=== PATIENT | male | born 1975 | race African-American/Black ===

== ENCOUNTER 2017-09-28 18:24 | Observation (INO) | payer OTHER ==
[2017-09-28 18:47] LABS: Glucose,Whole Blood 77 mg/dL (75-99)
[2017-09-28] MEDS ORDERED: SODIUM CHLORIDE 0.9% 1,000 ML IV STA (18:51)
[2017-09-28] MEDS ORDERED: IPRATROPIUM 0.5 MG/2.5 ML NEBU INHALATION STA (18:51)
[2017-09-28] MEDS ORDERED: ALBUTEROL NEBULIZED 2.5 MG/3 ML INHALATION STA (18:51)
[2017-09-28 19:34] LABS: Anisocytosis Slight; Basophils % (A) 0 %; Eosinophils # (A) 0.2 k/uL (0-0.7); Eosinophils % (A) 2 %; HCT 38.2 % (39.0-53.0); HGB 11.4 gm/dL (13.0-17.5); Hypochromasia Marked; Lymphocytes # (A) 1.5 k/uL (1.0-4.8); Lymphocytes % (A) 23 %; MCH 21.6 pg (25.0-35.0); MCHC 29.9 g/dL (31.0-37.0); MCV 72.3 fL (80.0-100.0); Mean Platelet Volume 7.8; Microcytosis Moderate; Monocytes # (A) 0.3 k/uL (0-1.0); Monocytes % (A) 5 %; Neutrophils # (A) 4.4 k/uL (1.3-7.7); Neutrophils % (A) 69 %; Platelet Count 208 k/uL (150-450); Poikilocytosis Slight; RBC 5.29 m/uL (4.30-5.90); RDW 17.4 % (11.5-15.5); WBC 6.4 k/uL (3.8-10.6)
[2017-09-28] MEDS ORDERED: LORazepam 2 MG/ML INJ IV STA (19:43)
[2017-09-28] MEDS ORDERED: MORPHINE SULFATE 4 MG/ML SYRINGE IVP STA (19:43)
[2017-09-28 19:48] LABS: ALT 32 U/L (21-72); AST 21 U/L (17-59); Albumin 3.7 g/dL (3.5-5.0); Alkaline Phosphatase 73 U/L (38-126); Anion Gap 8 mmol/L; Blood Urea Nitrogen 16 mg/dL (9-20); Calcium 8.9 mg/dL (8.4-10.2); Carbon Dioxide 21 mmol/L (22-30); Chloride 113 mmol/L (98-107); Glucose 82 mg/dL (74-99); Magnesium 1.8 mg/dL (1.6-2.3); Potassium 3.9 mmol/L (3.5-5.1); Sodium 142 mmol/L (137-145); Total Bilirubin 0.3 mg/dL (0.2-1.3); Total Protein 6.4 g/dL (6.3-8.2)
[2017-09-28 19:49] LABS: Creatine Kinase 104 U/L (55-170)
[2017-09-28] MEDS ORDERED: methylPREDNISolone SOD SUCCI 125 MG/2 ML VIAL IV STA (19:52)
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
[2017-09-28] MEDS ORDERED: ALBUTEROL NEBULIZED 2.5 MG/3 ML INHALATION SCH (20:00)
[2017-09-28 20:02] LABS: Creatine Kinase MB 0.7 ng/mL (0.0-2.4); Troponin I <0.012 ng/mL (0.000-0.034)
--- NOTE | 2017-09-28 21:04 | XR ---
EXAMINATION: XR chest 1V portable DATE AND TIME: 09/28/2017 8:19 PM CLINICAL INDICATION: Pain TECHNIQUE: AP upright portable COMPARISON: None. FINDINGS: The hemidiaphragms are prominently elevated consistent with low lung inflation at the momen t of x-ray exposure. This precludes visualization of the lower lobes. However, the mediastinal and di aphragmatic pleural reflections are not silhouetted. The lungs appear to be clear. The pleural spaces are negative. The cardiac silhouette appears mildly enlarged, stable. The skeletal structures and soft tissues are negative for acute findings. IMPRESSION: NO ACUTE PROCESS.
[2017-09-28] MEDS ORDERED: ALBUTEROL NEBULIZED 2.5 MG/3 ML INHALATION PRN ×3 (21:30→22:14)
[2017-09-28] MEDS ORDERED: ACETAMINOPHEN TAB 500 MG TAB PO PRN (22:10)
[2017-09-28] MEDS ORDERED: TEMAZEPAM 15 MG CAP PO PRN (22:10)
--- NOTE | 2017-09-28 22:42 | HP ---
HISTORY AND PHYSICAL DATE OF SERVICE: 09/28/2017 CHIEF COMPLAINT: Shortness of breath. HISTORY OF PRESENT ILLNESS: This 42-year-old gentleman with a past medical history of multiple medical problems, including asthma, COPD, history of CHF, hemodialysis, history of DVT, history of pulmonary embolus, seizure disorder, sleep apnea, history of factor V Leiden deficiency, history of pancreatic tumor with chemo and radiation, history of pulmonary embolus, history of seizure disorder, history of cardiac catheterization, being followed by a primary physician elsewhere, was recently relocated to the area, according to him, and the patient was complaining of increasing shortness of breath and chest pains. The patient came to [facility] and was admitted for further evaluation and treatment. Patient was given a BiPAP at 10/5, 50% FiO2. Patient was admitted for further evaluation treatment. There is no history of any fever or rigors. No history of headache, loss of consciousness. Initial chest x-ray did not show any acute abnormality. PAST MEDICAL HISTORY: 1. History of asthma. 2. History of CHF. 3. History of hemodialysis. 4. History of DVT. 5. Pulmonary embolus. 6. History of sleep apnea. 7. Seizure disorder. 8. Factor V Leiden deficiency. 9. History of pancreatic tumor apparently with chemoradiation. 10.History of seizure disorder. 11.History of anxiety. HOME MEDICATIONS: 1. Oxycodone 30 mg p.o. t.i.d. 2. Benadryl 25 mg p.o. daily. 3. Catapres 0.1 mg at bedtime. 4. Coumadin 5 mg at bedtime. 5. Omeprazole 40 mg b.i.d. 6. Multivitamins 1 p.o. daily. 7. Singulair 10 mg at bedtime. 8. Dulera 2 puffs b.i.d. 9. Claritin 10 mg p.o. daily. 10.Breo Ellipta 1 puff daily. 11.Colace 100 mg p.o. b.i.d. 12.Bentyl 10 mg p.o. t.i.d. 13.Colchicine 0.6 daily. 14.Plavix 75 mg p.o. daily. 15.Lipitor 10 mg daily. 16.Aspirin 81 mg p.o. daily. 17.Lac-Hydrin 1 application daily. 18.Proventil 1 puff q.4 p.r.n. 19.Ventolin 2.5 q.4 p.r.n. ALLERGIES: MULTIPLE ALLERGIES: 1. APIXABAN. 2. ASPARAGUS. 3. CAT DANDER. 4. CATS CLAWS. 5. CELEXA. 6. PRADAXA. 7. FRAGMIN. 8. LOVENOX. 9. FLUPHENAZINE. 10.ARIXTRA. 11.HALDOL. 12.ATARAX. 13.MOTRIN. 14.ATROVENT. 15.TORADOL. 16.LANOLIN. 17.SKELAXIN. 18.ROBAXIN. 19.ANTIBIOTICS. 20.SULFA. 21.TRAMADOL. FAMILY HISTORY: History of myocardial infarction, coronary artery disease in the family. SOCIAL HISTORY: No history of smoking. No history of alcohol intake. REVIEW OF SYSTEMS: ENT: No diminished hearing. No diminished vision. CARDIOVASCULAR SYSTEM: As mentioned earlier. RESPIRATORY SYSTEM: As mentioned earlier. GI: As mentioned earlier. : No dysuria or retention. NERVOUS SYSTEM: No numbness, weakness. ALLERGY/IMMUNOLOGY: As mentioned earlier. MUSCULOSKELETAL: As mentioned earlier. HEMATOLOGY/ONCOLOGY: No history of anemia. ENDOCRINE: As mentioned earlier. CONSTITUTIONAL: As mentioned earlier. DERMATOLOGY: Negative. RHEUMATOLOGY: Negative. PSYCHIATRY: As mentioned earlier. PHYSICAL EXAMINATION: Patient is alert and oriented x3. The pulse is 81, blood pressure 120/75, respiration 20, temperature 97.9, pulse ox 100% on BiPAP. Patient is extremely short of breath. HEENT: Conjunctivae normal. Oral mucosa moist. NECK: No jugular venous distention. No carotid bruit. No lymph node enlargement. CARDIOVASCULAR SYSTEM: S1, S2 muffled. RESPIRATORY SYSTEM: Breath sounds diminished at the bases. A few scattered rhonchi and crackles. Expiratory wheezing also present. ABDOMEN: Soft, non-tender. No mass palpable. LEGS: No edema. No swelling. NERVOUS SYSTEM: Higher functions as mentioned earlier. Moves all 4 limbs. No focal motor or sensory deficit. LYMPHATICS: No lymph node palpable in neck, axillae or groin. SKIN: No ulcer, rash, bleeding. LABS: WBC 6.2, hemoglobin 11.4. Sodium 142, potassium 3.9. ASSESSMENT: 1. Shortness of breath; possibly asthma or chronic obstructive pulmonary disease, acute exacerbation, with acute hypoxic respiratory failure, on BiPAP. 2. Chest pain for evaluation. 3. Anemia, microcytic. 4. History of congestive heart failure. 5. History of hemodialysis. 6. History of deep venous thrombosis. 7. History of pulmonary embolism. 8. History of seizures. 9. History of sleep apnea. 10.History of Factor V Leiden deficiency. 11.History of pancreatic tumor with chemoradiation apparently. 12.History of cardiac catheterization. 13.History of anxiety. RECOMMENDATIONS AND DISCUSSION: In this 42-year-old gentleman who presented with multiple complex medical issues, we will monitor the patient closely, continue the current medications, continue with symptomatic treatment. Will obtain pulmonary consultations. Continue the patient with BiPAP, empiric antibiotics, bronchodilators, steroids. Continue the rest of the home medications. Guarded prognosis because of multiple complex medical issues. Further recommendations to follow. I also recommend that the patient follow up with the primary physician closely. MMMAYL / TANAN: [id number] /
[2017-09-29] MEDS: ALPRAZolam 0.25 MG TAB PO PRN ×2 (00:09→22:11)
[2017-09-29] MEDS: methylPREDNISolone SOD SUCCI 125 MG/2 ML VIAL IV SCH ×4 (00:09→18:03)
[2017-09-29] MEDS: MORPHINE SULFATE 2 MG/ML SYRINGE IVP PRN ×5 (00:10→16:42)
[2017-09-29] MEDS: cefTRIAXone IN SWFI 1,000 MG/10 ML SYRINGE IVP SCH ×2 (00:10→22:06)
[2017-09-29 00:25] LABS: INR 1.1 (<1.2); Prothrombin Time 10.5 sec (9.0-12.0)
[2017-09-29 00:26] LABS: Partial Thromboplastin Time 21.4 sec (22.0-30.0)
[2017-09-29] MEDS: ALBUTEROL NEBULIZED 2.5 MG/3 ML INHALATION SCH ×2 (07:24→11:11)
[2017-09-29] MEDS: BUDESONIDE 1 MG/2 ML NEBU INHALATION SCH ×2 (07:24→19:35)
[2017-09-29 07:41] LABS: Anisocytosis Slight; Basophils % (A) 0 %; Eosinophils % (A) 1 %; HGB 11.3 gm/dL (13.0-17.5); Hypochromasia Marked; Lymphocytes # (A) 0.3 k/uL (1.0-4.8); Lymphocytes % (A) 6 %; MCH 22.1 pg (25.0-35.0); MCHC 29.6 g/dL (31.0-37.0); MCV 74.8 fL (80.0-100.0); Mean Platelet Volume 9.3; Microcytosis Slight; Monocytes # (A) 0.1 k/uL (0-1.0); Monocytes % (A) 2 %; Neutrophils # (A) 4.6 k/uL (1.3-7.7); Neutrophils % (A) 92 %; Platelet Count 251 k/uL (150-450); RBC 5.08 m/uL (4.30-5.90); RDW 17.6 % (11.5-15.5)
[2017-09-29] MEDS ORDERED: SYMBICORT 160-4.5 MCG INHALER INHALATION SCH (08:00)
[2017-09-29] MEDS ORDERED: ALBUTEROL NEBULIZED 2.5 MG/3 ML INHALATION SCH ×2 (08:00→16:00)
[2017-09-29] MEDS ORDERED: FORMOTEROL FUMARATE 20 MCG/2 ML NEBU INHALATION SCH (08:00)
[2017-09-29] MEDS: PANTOPRAZOLE 40 MG TABLET PO SCH (08:01)
[2017-09-29] MEDS: DOCUSATE 100 MG CAP PO SCH ×2 (08:01→22:04)
[2017-09-29] MEDS: ATORVASTATIN 10 MG TAB PO SCH (08:01)
[2017-09-29] MEDS: ASPIRIN 81 MG PO SCH (08:01)
[2017-09-29] MEDS: DICYCLOMINE 10 MG CAP PO SCH ×3 (08:01→22:04)
[2017-09-29] MEDS: diphenhydrAMINE 25 MG CAP PO SCH ×3 (08:05→22:11)
[2017-09-29 08:12] LABS: Anion Gap 13 mmol/L; Blood Urea Nitrogen 13 mg/dL (9-20); Calcium 9.1 mg/dL (8.4-10.2); Carbon Dioxide 19 mmol/L (22-30); Chloride 109 mmol/L (98-107); Glucose 365 mg/dL (74-99); Sodium 141 mmol/L (137-145)
[2017-09-29] MEDS ORDERED: AMMONIUM LACTATE 12% LOTION 225 GM BTL TOPICAL SCH (09:00)
[2017-09-29] MEDS ORDERED: NON-FORMULARY DRUG (Omeprazole [Omeprazole] 40 MG) PO SCH (09:00)
[2017-09-29] MEDS ORDERED: LORATADINE 10 MG TAB PO SCH (09:00)
[2017-09-29] MEDS ORDERED: CLOPIDOGREL 75 MG TAB PO SCH (09:00)
[2017-09-29] MEDS ORDERED: COLCHICINE 0.6 MG EACH PO SCH (09:00)
[2017-09-29] MEDS ORDERED: ALBUTEROL INHALER 60 PUFF/8 GM INHALER INHALATION PRN (11:55)
[2017-09-29] MEDS ORDERED: MULTIVITAMINS, THERA 1 EACH TAB PO SCH (12:00)
[2017-09-29] MEDS ORDERED: RITONAVIR 100 MG TAB PO SCH (12:30)
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
[2017-09-29] MEDS: IPRATROPIUM-ALBUTEROL 3 ML NEB INHALATION SCH ×3 (15:51→23:32)
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
[2017-09-29] MEDS ORDERED: IPRATROPIUM 0.5 MG/2.5 ML NEBU INHALATION SCH (16:00)
[2017-09-29] MEDS: GABAPENTIN 400 MG CAP PO SCH ×2 (16:44→22:05)
[2017-09-29] MEDS: DIVALPROEX ER 500 MG TAB.ER.24H PO SCH ×2 (16:44→22:05)
[2017-09-29] MEDS: HEPARIN SODIUM,PORCINE 5,000 UNIT/ML 1 ML VIAL SQ SCH (16:50)
[2017-09-29 17:46] LABS: Glucose,Whole Blood 172 mg/dL (75-99)
[2017-09-29] MEDS ORDERED: WARFARIN 5 MG TAB PO SCH (18:00)
[2017-09-29] MEDS: INSULIN ASPART 100 UNIT/ML 1 ML 10 ML VIAL SQ SCH ×2 (18:03→22:11)
[2017-09-29] MEDS ORDERED: MORPHINE ORAL SOLN 10 MG/5 ML CUP PO PRN (19:45)
[2017-09-29 20:08] LABS: Glucose,Whole Blood 256 mg/dL (75-99)
[2017-09-29] MEDS ORDERED: FLUOXETINE HCL PO SCH (21:00)
[2017-09-29] MEDS ORDERED: ABACAVIR SULFATE PO SCH (21:00)
[2017-09-29] MEDS ORDERED: metFORMIN 500 MG TAB PO SCH (21:00)
[2017-09-29] MEDS ORDERED: LAMIVUDINE PO SCH (21:00)
[2017-09-29] MEDS ORDERED: [UNRECOGNIZED DRUG - OTHER] PO SCH (21:00)
[2017-09-29] MEDS ORDERED: QUEtiapine 100 MG TAB PO SCH (21:00)
[2017-09-29] MEDS ORDERED: guaiFENesin 600 MG TABLET.ER PO SCH (21:00)
[2017-09-29] MEDS ORDERED: cloNIDine HCL 0.1 MG TAB PO SCH (21:00)
[2017-09-29] MEDS ORDERED: MONTELUKAST 10 MG TAB PO SCH ×2 (21:00)
[2017-09-29] MEDS ORDERED: OLANZAPINE PO SCH (21:00)
[2017-09-29 21:46] LABS: Hemoglobin A1C 6.4 % (4.0-6.0)
[2017-09-29 22:09] VITALS: RESP 16
--- NOTE | 2017-09-30 00:07 | CONS ---
CONSULTATION REASON FOR CONSULTATION: 1. HIV. 2. Hepatitis B, chronic. HISTORY OF PRESENT ILLNESS: The patient is a 42-year-old, male who has been brought into the ER for the chief complaints of difficulty breathing. These symptom has been going on for 2 days prior to presentation to hospital. The patient has been complaining of shortness of breath with exertion. Denies having any chest pain, orthopnea or PND or any active wheezing. The patient denies having any URI symptoms. No high-grade fever, rigors or any chills. The patient has been complaining of having frequent falls as well. With these symptoms, the patient was evaluated by the ER physician. The patient on arrival to the ER has been afebrile. The patient's white count was normal at 5.0. His liver enzymes are normal. Lymphocyte count is normal. The patient did have a chest x-ray, which was negative for any acute pulmonary process. The patient has been to the hospital for possible asthma/COPD exacerbation. The patient also reports a history of HIV and chronic hepatitis B for which the patient is currently on anti- retroviral medication. However, looking at the medication profile does not make sense as the patient is on in addition when asked specifically for who is his HIV physician he states that he is in [place], but is not able to give me a clear name of it. When asked specifically for how long he has HIV, he 16 years. Apparently, the patient was admitted to this facility in 2016 and there was no mention of HIV in any of the consults or the admitting physician notes. The patient is not very clear when he is asked about his HIV status, his CD4 count or viral load. He has no idea. The patient seems to be confabulating and when I asked specifically about his HIV and hepatitis B status. Likely this history to be unreliable at the moment. REVIEW OF SYSTEMS: CONSTITUTIONAL: Positive for weakness, no fever. EYES: No complaint. ENT: No complaint. RESPIRATORY: As per HPI. CARDIOVASCULAR: No complaint. GENITOURINARY: No complaint. GASTROINTESTINAL: No complaint. MUSCULOSKELETAL: No complaint. INTEGUMENTARY: No complaint. PSYCHOLOGICAL: No complaint. ENDOCRINE: No complaint. NEUROLOGIC: No complaint. PAST MEDICAL HISTORY: [place], pulmonary embolism, seizure disorder, sleep apnea, DVT, COPD, heart failure, factor V Leiden deficiency, history of pancreatic tumor with chemoradiation, PE , sleep apnea, history of chronic hepatitis B and HIV, which I am not very clear about. PAST SURGICAL HISTORY: Appendectomy, heart catheterization, tonsillectomy, left leg fasciotomy, spinal cord stimulator placement and removal, repair surgery on the left leg. SOCIAL HISTORY: No history of smoking, drinking or drug use. FAMILY HISTORY: Father has colon disease and WI. ALLERGIES: To multiple medication including APIXABAN . MEDICATIONS: Currently include, the patient is on Tylenol, Ventolin, DuoNeb, Xanax, aspirin, Lipitor, Pulmicort, Rocephin, Thorazine, Catapres, Plavix, colchicine, Bentyl, Benadryl, Depakote, Colace, Truvada, Solu-Medrol and Norvasc. EXAMINATION: Blood pressure 141/76 with a pulse of 84, temperature 97.1. He has been 100% when he presented to the hospital. General description is a middle-aged male lying in bed in no distress. No tachypnea or accessory muscle of respiration use. HEENT: Shows slight pallor. No scleral icterus. Oral mucous membranes moist. No pharyngeal erythema or thrush. NECK: Trachea central, no thyromegaly. LUNGS: Unlabored breathing, clear to auscultation anteriorly. No wheeze or crackle. HEART: S1, S2. Regular rate and rhythm. ABDOMEN: Soft, no tenderness. No guarding or rigidity. EXTREMITIES: No edema of the feet. SKIN EXAMINATION: No rash or mass palpable. NEUROLOGICAL: The patient is awake, alert, oriented. Mood and affect normal. LABS: Hemoglobin is 11.8, white count 5.0. INR was 1.1 with a BUN of 13, creatinine 0.91. Liver enzymes are normal. Chest x-ray report negative for pneumonia. DIAGNOSTIC IMPRESSION AND PLAN: 1. Patient was currently giving a history of HIV, however, the patient not very clear about the status of his HIV or the physician was prescribing these medication and medication and the patient is currently on does not make sense. We will try to contact his ID physician in [place]. However, when the RN went to the room to get his signature on release of his medical record, the patient apparently freaked out and would not sign it. We will have to confirm his HIV status before recommending any specific treatment. 2. The patient with chronic hepatitis B. The diagnosis still not full in view of normal liver enzymes and the patient's history. PLAN: 1. We will check an HIV 1 and 2 antibodies on this patient for antigen. 2. Check and reason. 3. Recommend to hold anti-retroviral therapy at this point until we have a confirmation of his HIV and hepatitis B status and get records from his ID physician in [place]. 4. We will follow on his clinical condition. Further adjust medication if needed. Thank you for this consultation. We will follow this patient along with you. MMMAYL / IJN: [id number] /
[2017-09-30 01:12] LABS: Iron Saturation 6.44 (15.00-50.00)
[2017-09-30] MEDS: HEPARIN SODIUM,PORCINE 5,000 UNIT/ML 1 ML VIAL SQ SCH (01:12)
[2017-09-30] MEDS: methylPREDNISolone SOD SUCCI 125 MG/2 ML VIAL IV SCH ×2 (01:12→05:25)
[2017-09-30 02:33] LABS: Folate, Serum >24.0 ng/mL
[2017-09-30] MEDS: IPRATROPIUM-ALBUTEROL 3 ML NEB INHALATION SCH ×2 (02:46→08:33)
[2017-09-30 05:42] VITALS: BP 103/62; PULSE 91; TEMP 97.9
[2017-09-30 06:56] LABS: Glucose,Whole Blood 149 mg/dL (75-99)
[2017-09-30] MEDS: ATORVASTATIN 10 MG TAB PO SCH (07:58)
[2017-09-30] MEDS: PANTOPRAZOLE 40 MG TABLET PO SCH (07:58)
[2017-09-30] MEDS: INSULIN ASPART 100 UNIT/ML 1 ML 10 ML VIAL SQ SCH (07:59)
[2017-09-30] MEDS: ASPIRIN 81 MG PO SCH (07:59)
[2017-09-30] MEDS ORDERED: NON-FORMULARY DRUG (Fluticasone/Vilanterol [Breo Ellipta 200-25 Mcg Inh] 1 PUFF) INHALATION SCH (08:00)
[2017-09-30] MEDS: BUDESONIDE 1 MG/2 ML NEBU INHALATION SCH (08:32)
[2017-09-30] MEDS ORDERED: THEOPHYLLINE 24 HOUR 300 MG CAP.ER.24H PO SCH (09:00)
[2017-09-30] MEDS ORDERED: EMTRICITABINE/TENOFOVIR 200MG/300MG PO SCH (09:00)
[2017-09-30] MEDS ORDERED: NON-FORMULARY DRUG (Aspirin Ec 81 MG) PO SCH (09:00)
[2017-09-30] MEDS ORDERED: MELOXICAM 7.5 MG TAB PO SCH (09:00)
[2017-09-30] MEDS ORDERED: chlorproMAZINE 25 MG TAB PO SCH (09:00)
[2017-09-30] MEDS ORDERED: RITONAVIR 100 MG TAB PO SCH (09:00)
[2017-09-30] MEDS ORDERED: TENOFOVIR DISOPROXIL FUMARATE 300 MG PO SCH (09:00)
--- NOTE | 2017-09-30 18:32 | DS ---
DISCHARGE SUMMARY FINAL DIAGNOSES: 1. Shortness of breath, possible chronic obstructive pulmonary disease acute exacerbation with acute ventricular bronchitis, acute hypoxic respiratory failure, status post BiPAP. 2. Chest pain for evaluation. 3. Chronic pain syndrome. 4. Diabetes mellitus type 2, steroid induced. 5. Anemia, microcytic. 6. HIV. 7. Hepatitis. 8. History of congestive heart failure. 9. History of multiple medical problems. DISCHARGE DISPOSITION: The patient left the hospital AGAINST MEDICAL ADVICE. HISTORY OF PRESENT ILLNESS: This 42-year-old gentleman admitted with multiple medical problems as mentioned earlier. The patient is being evaluated by Pulmonology but however the patient left the hospital AGAINST MEDICAL ADVICE. Prognosis is extremely guarded. Please refer to the previous history and physical dictation and staff notes for further information. MMODL / IJN: [id number] /
[2017-10-03 14:50] LABS: Alt. alternata IgE Class CLASS 0; Alternaria alternata IgE <0.35 kU/L (<0.35); Asperg. fumagatus IgE <0.35 kU/L (<0.35); Asperg. fumagatus IgE Class CLASS 0; Bermuda Grass IgE <0.35 kU/L (<0.35); Birch(Com.Silvr) IgE <0.35 kU/L (<0.35); Birch(Com.Silvr) IgE Class CLASS 0; Cat Epith & Dander IgE <0.35 kU/L (<0.35); Cat Epith & Dander IgE Class CLASS 0; Clad herbarum IgE <0.35 kU/L (<0.35); Cottonwood IgE <0.35 kU/L (<0.35); Dermato. farinae IgE <0.35 kU/L (<0.35); Dermato. farinae IgE Class CLASS 0; Dog Dander IgE <0.35 kU/L (<0.35)
[2017-10-04 10:59] LABS: Alpha 1 Anti-Trypsin 148 mg/dL (90 - 200)
[2017-10-05 12:34] LABS: Alternaria Alternata IgG < 2.0 mcg/mL (< 13.6); Aspergillus fumigatus IgG Not detected (Not detected); Aureobasidium pullulans IgG < 2.0 mcg/mL (< 13.6); Cladosporium herbarium IgG < 2.0 mcg/mL (< 14.7); Phoma ssp. IgG < 2.0 mcg/mL (< 6.6); Saccaharomospora viridis Not detected (Not detected); Saccaharopoly. rectivirgula Not detected (Not detected)
== END 2017-09-30 08:30 | disposition left against medical advice (07) ==
LOC: EC 18:24 → 5MS5E 19:52 → INTOOBSV 19:52 → UNDODISIN 09-30 08:30
PROVIDERS: ADMIT Hospitalist; ATTEND Hospitalist
PROC: 5A09457 Assistance with Respiratory Ventilation, 24-96 Consecutive Hours, Continuous Positive Airway Pressure (ICD-10-PCS; principal; 2017-09-28)
DX: R07.9 Chest pain, unspecified (principal); J96.01 Acute respiratory failure with hypoxia; J44.9 Chronic obstructive pulmonary disease, unspecified; J45.909 Unspecified asthma, uncomplicated; G89.4 Chronic pain syndrome; D50.9 Iron deficiency anemia, unspecified; Z21 Asymptomatic human immunodeficiency virus [HIV] infection status; I50.9 Heart failure, unspecified; Z53.21 Procedure and treatment not carried out due to patient leaving prior to being seen by health care provider; D68.51 Activated protein C resistance; G40.909 Epilepsy, unspecified, not intractable, without status epilepticus; F41.9 Anxiety disorder, unspecified; E09.65 Drug or chemical induced diabetes mellitus with hyperglycemia; Z79.899 Other long term (current) drug therapy; G47.33 Obstructive sleep apnea (adult) (pediatric); Z79.82 Long term (current) use of aspirin; Z79.02 Long term (current) use of antithrombotics/antiplatelets; B18.1 Chronic viral hepatitis B without delta-agent; T45.516A Underdosing of anticoagulants, initial encounter; Z91.041 Radiographic dye allergy status; Z88.5 Allergy status to narcotic agent; Z88.2 Allergy status to sulfonamides; Z88.8 Allergy status to other drugs, medicaments and biological substances; Z91.018 Allergy to other foods; Z91.048 Other nonmedicinal substance allergy status; Z99.89 Dependence on other enabling machines and devices; Z92.21 Personal history of antineoplastic chemotherapy; Z92.3 Personal history of irradiation; Z86.718 Personal history of other venous thrombosis and embolism; Z86.711 Personal history of pulmonary embolism; Z79.01 Long term (current) use of anticoagulants; Z79.51 Long term (current) use of inhaled steroids; Z79.891 Long term (current) use of opiate analgesic; Z79.1 Long term (current) use of non-steroidal anti-inflammatories (NSAID); Z79.84 Long term (current) use of oral hypoglycemic drugs; Z82.49 Family history of ischemic heart disease and other diseases of the circulatory system; B19.20 Unspecified viral hepatitis C without hepatic coma; I25.2 Old myocardial infarction; R29.6 Repeated falls; Z91.19 Patient's noncompliance with other medical treatment and regimen; Z86.03 Personal history of neoplasm of uncertain behavior
CPT/HCPCS: 96361 ×4; 96376; 96375 ×2; 96374; 99291; 36415; 94640 ×3; 93005; 97163; 82103; 82785; 86003; 83880; 80053; 80048; 86001; 82104; 82607; 82550; 82553; 82746; 83540; 83550; 83735; 84484; 85025 ×2; 85610; 85730; 86609; 86606; 83036; 71045; G0378 ×3; J2060; J2270 ×2; J2930 ×2; J0696; 86704; 87340; 87390

== ENCOUNTER 2018-02-16 17:33 | Inpatient (IN) | payer BC, OTHER ==
[2018-02-16] MEDS ORDERED: methylPREDNISolone SOD SUCCI 125 MG/2 ML VIAL IV STA (18:00)
[2018-02-16] MEDS ORDERED: TERBUTALINE 1 MG/ML VIAL SQ STA (18:00)
[2018-02-16] MEDS ORDERED: SODIUM CHLORIDE 0.9% 1,000 ML IV STA (18:00)
[2018-02-16] MEDS ORDERED: ALBUTEROL NEBULIZED 2.5 MG/3 ML INHALATION STA (18:00)
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
[2018-02-16 19:28] LABS: Anisocytosis Slight; Basophils % (A) 0 %; Eosinophils # (A) 0.1 k/uL (0-0.7); Eosinophils % (A) 2 %; HCT 38.8 % (39.0-53.0); HGB 12.6 gm/dL (13.0-17.5); Hypochromasia Moderate; Lymphocytes # (A) 1.5 k/uL (1.0-4.8); Lymphocytes % (A) 34 %; MCH 24.8 pg (25.0-35.0); MCHC 32.5 g/dL (31.0-37.0); MCV 76.5 fL (80.0-100.0); Mean Platelet Volume 7.3; Microcytosis Slight; Monocytes # (A) 0.3 k/uL (0-1.0); Monocytes % (A) 7 %; Neutrophils # (A) 2.5 k/uL (1.3-7.7); Neutrophils % (A) 55 %; Platelet Count 215 k/uL (150-450); Poikilocytosis Slight; RBC 5.07 m/uL (4.30-5.90); RDW 17.4 % (11.5-15.5); WBC 4.6 k/uL (3.8-10.6)
--- NOTE | 2018-02-16 19:34 | XR ---
EXAMINATION TYPE: XR chest 2V DATE OF EXAM: 02/16/2018 COMPARISON: 09/28/2017 HISTORY: Difficulty breathing TECHNIQUE: Frontal and lateral views of the chest are obtained. FINDINGS: Heart and mediastinum are normal. Lungs are clear of consolidation. There is no pleural ef fusion. There is slight coarsening of the lung markings in the lower lobes. IMPRESSION: Increased lung markings in the lower lobes mostly on the left side compared to old exam. Poor inspiration. No pulmonary consolidation.
[2018-02-16 19:41] LABS: INR 1.1 (<1.2); Prothrombin Time 11.5 sec (9.0-12.0)
[2018-02-16 19:42] LABS: ALT 27 U/L (21-72); AST 21 U/L (17-59); Albumin 3.8 g/dL (3.5-5.0); Alkaline Phosphatase 66 U/L (38-126); Anion Gap 5 mmol/L; Blood Urea Nitrogen 15 mg/dL (9-20); Calcium 8.9 mg/dL (8.4-10.2); Carbon Dioxide 25 mmol/L (22-30); Chloride 109 mmol/L (98-107); Glucose 207 mg/dL (74-99); Magnesium 1.6 mg/dL (1.6-2.3); Potassium 3.3 mmol/L (3.5-5.1); Sodium 139 mmol/L (137-145); Total Bilirubin 0.6 mg/dL (0.2-1.3); Total Protein 6.1 g/dL (6.3-8.2)
[2018-02-16 19:57] LABS: Creatine Kinase MB 0.8 ng/mL (0.0-2.4); Troponin I 0.019 ng/mL (0.000-0.034)
[2018-02-16 20:18] LABS: Partial Thromboplastin Time 20.8 sec (22.0-30.0)
[2018-02-16] MEDS ORDERED: HYDROmorphone 1 MG/ML 1 ML SYRINGE IVP STA (20:48)
[2018-02-16] MEDS ORDERED: PANTOPRAZOLE 40 MG TABLET PO SCH (21:00)
[2018-02-16] MEDS: GABAPENTIN 400 MG CAP PO SCH (22:10)
[2018-02-16] MEDS: cloNIDine HCL 0.1 MG TAB PO SCH (22:11)
[2018-02-16] MEDS: DIVALPROEX ER 500 MG TAB.ER.24H PO SCH (22:12)
[2018-02-16] MEDS: WARFARIN 5 MG TAB PO SCH (22:23)
[2018-02-16 22:25] VITALS: BMI 28.8
[2018-02-17] MEDS: methylPREDNISolone SOD SUCCI 125 MG/2 ML VIAL IV SCH ×5 (01:34→23:33)
[2018-02-17] MEDS: POTASSIUM CHLORIDE ER 20 MEQ TAB.ER PO SCH ×2 (03:32→04:58)
[2018-02-17] MEDS: MAGNESIUM SULFATE-D5W PMX 1 GM in DEXTROSE/WATER 1 100ML.BAG IVPB SCH ×2 (03:32→04:58)
[2018-02-17] MEDS: HYDROmorphone 2 MG TAB PO PRN ×2 (03:32→18:19)
[2018-02-17] MEDS: IPRATROPIUM-ALBUTEROL 3 ML NEB INHALATION PRN ×3 (03:51→11:05)
[2018-02-17 05:35] LABS: Glucose,Whole Blood 367 mg/dL (75-99)
[2018-02-17] MEDS ORDERED: HYDROmorphone 0.5 MG/0.5 ML SYRINGE IVP STA ×3 (05:39→23:29)
[2018-02-17] MEDS: INSULIN ASPART 100 UNIT/ML 1 ML 10 ML VIAL SQ SCH ×4 (05:55→21:09)
[2018-02-17 07:04] LABS: Glucose,Whole Blood 356 mg/dL (75-99)
[2018-02-17 07:17] LABS: Anisocytosis Slight; HCT 36.8 % (39.0-53.0); HGB 11.9 gm/dL (13.0-17.5); Hypochromasia Slight; MCH 24.7 pg (25.0-35.0); MCHC 32.4 g/dL (31.0-37.0); MCV 76.4 fL (80.0-100.0); Mean Platelet Volume 7.9; Microcytosis Slight; Platelet Count 256 k/uL (150-450); Poikilocytosis Slight; RBC 4.82 m/uL (4.30-5.90); RDW 17.4 % (11.5-15.5); WBC 8.4 k/uL (3.8-10.6)
[2018-02-17 07:20] LABS: INR 1.1 (<1.2); Prothrombin Time 11.4 sec (9.0-12.0)
[2018-02-17 07:49] LABS: Anion Gap 16 mmol/L; Blood Urea Nitrogen 12 mg/dL (9-20); Calcium 9.1 mg/dL (8.4-10.2); Carbon Dioxide 18 mmol/L (22-30); Chloride 105 mmol/L (98-107); Glucose 400 mg/dL (74-99); Potassium 4.4 mmol/L (3.5-5.1); Sodium 139 mmol/L (137-145)
[2018-02-17] MEDS: GABAPENTIN 400 MG CAP PO SCH ×3 (09:48→20:37)
[2018-02-17] MEDS: ATORVASTATIN 10 MG TAB PO SCH ×2 (09:49→10:04)
[2018-02-17] MEDS: DIVALPROEX ER 500 MG TAB.ER.24H PO SCH ×3 (09:49→20:37)
[2018-02-17] MEDS: diphenhydrAMINE 25 MG CAP PO SCH ×4 (09:49→20:36)
[2018-02-17] MEDS: DICYCLOMINE 10 MG CAP PO SCH ×3 (09:49→20:38)
[2018-02-17] MEDS: CLOPIDOGREL 75 MG TAB PO SCH ×2 (09:49→12:49)
[2018-02-17] MEDS: MELOXICAM 7.5 MG TAB PO SCH (09:49)
[2018-02-17] MEDS: DOCUSATE 100 MG CAP PO SCH ×2 (09:49→20:36)
[2018-02-17] MEDS: LORATADINE 10 MG TAB PO SCH (09:49)
[2018-02-17] MEDS: RITONAVIR 100 MG TAB PO SCH ×2 (09:51→12:49)
[2018-02-17] MEDS: THEOPHYLLINE 24 HOUR 300 MG CAP.ER.24H PO SCH (09:51)
[2018-02-17] MEDS: COLCHICINE 0.6 MG EACH PO SCH ×2 (09:51→12:49)
[2018-02-17] MEDS ORDERED: INSULIN ASPART 100 UNIT/ML 1 ML 10 ML VIAL SQ ONE (11:36)
[2018-02-17 11:41] LABS: Glucose,Whole Blood 277 mg/dL (75-99)
[2018-02-17] MEDS: PANTOPRAZOLE 40 MG TABLET PO SCH ×2 (12:49→18:19)
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
[2018-02-17] MEDS ORDERED: FAMOTIDINE 20 MG/2 ML VIAL IV STA (14:40)
[2018-02-17] MEDS ORDERED: diphenhydrAMINE 50 MG/ML 1 ML VIAL IVP STA (14:40)
[2018-02-17] MEDS ORDERED: methylPREDNISolone SOD SUCCI 125 MG/2 ML VIAL IV STA (14:47)
[2018-02-17] MEDS ORDERED: HEPARIN SODIUM,PORCINE 5,000 UNIT/ML 1 ML VIAL IV STA (15:57)
[2018-02-17] MEDS: IPRATROPIUM-ALBUTEROL 3 ML NEB INHALATION SCH ×2 (16:53→21:41)
[2018-02-17] MEDS: HEPARIN SOD,PORK IN 0.45% NACL 25,000 UNIT in 0.45% NACL 1 250ML.BAG IV SCH (18:00)
[2018-02-17 18:06] LABS: Glucose,Whole Blood 200 mg/dL (75-99)
[2018-02-17] MEDS: WARFARIN 5 MG TAB PO SCH (18:19)
--- NOTE | 2018-02-17 19:06 | US ---
EXAMINATION TYPE: US venous doppler duplex LE DATE OF EXAM: 02/17/2018 5:43 PM COMPARISON: NONE CLINICAL HISTORY: DVT. Cramping and edema bilateral legs, worse on left. SOB, history of PE. Patient states he is on Coumadin. History of factor V. Left leg faschiotomy. Nerve repair surgery left leg SIDE PERFORMED: bilateral TECHNIQUE: The lower extremity deep venous system is examined utilizing real time linear array sonog pablo with graded compression, doppler sonography and color-flow sonography. VESSELS IMAGED: External Iliac Vein (EIV) Common Femoral Vein Deep Femoral Vein Greater Saphenous Vein * Femoral Vein Popliteal Vein Small Saphenous Vein * Proximal Calf Veins (* superficial vessels) Technical limitations, patient unable to tolerate exam, unable to hold still Right Leg: No evidence of DVT Left Leg: Extreme technical limitations due to post surgical changes - large scar/indentation left upper and mid thigh making it difficult to evaluate vessels in this area. Unable to evaluate poplite al vein due to patient refusing to continue with exam. No evidence of DVT as visualized IMPRESSION: 1. No evidence of deep venous thrombosis. 2. Left leg is extremely limited given physical changes in the examination region. Please see above.
[2018-02-17] MEDS ORDERED: NON-FORMULARY DRUG (Mometasone/Formoterol [Dulera 200 Mcg/5 Mcg Inhaler] 2 PUFF) INHALATION SCH (20:00)
[2018-02-17] MEDS: cloNIDine HCL 0.1 MG TAB PO SCH (20:36)
[2018-02-17] MEDS: MONTELUKAST 10 MG TAB PO SCH (20:37)
[2018-02-17] MEDS: QUEtiapine 100 MG TAB PO SCH (20:40)
[2018-02-17] MEDS: LAMIVUDINE PO SCH (20:41)
[2018-02-17] MEDS: FLUOXETINE HCL PO SCH (20:41)
[2018-02-17] MEDS: OLANZAPINE PO SCH (20:41)
[2018-02-17] MEDS: ABACAVIR SULFATE PO SCH (20:41)
[2018-02-17 20:55] LABS: Glucose,Whole Blood 219 mg/dL (75-99)
[2018-02-18] MEDS: HEPARIN SODIUM,PORCINE 5,000 UNIT/ML 1 ML VIAL IV PRN ×2 (01:04→08:59)
[2018-02-18 06:51] LABS: Glucose,Whole Blood 316 mg/dL (75-99)
[2018-02-18] MEDS: PANTOPRAZOLE 40 MG TABLET PO SCH ×2 (06:57→17:59)
[2018-02-18] MEDS: methylPREDNISolone SOD SUCCI 125 MG/2 ML VIAL IV SCH ×3 (06:57→17:58)
[2018-02-18] MEDS: INSULIN ASPART 100 UNIT/ML 1 ML 10 ML VIAL SQ SCH ×2 (06:58→13:57)
[2018-02-18] MEDS: IPRATROPIUM-ALBUTEROL 3 ML NEB INHALATION SCH ×4 (07:24→20:26)
[2018-02-18 07:36] LABS: Anisocytosis Slight; Basophils % (A) 0 %; Eosinophils # (A) 0.1 k/uL (0-0.7); Eosinophils % (A) 0 %; HCT 39.1 % (39.0-53.0); HGB 12.3 gm/dL (13.0-17.5); Hypochromasia Moderate; Lymphocytes # (A) 0.5 k/uL (1.0-4.8); Lymphocytes % (A) 3 %; MCH 24.4 pg (25.0-35.0); MCHC 31.3 g/dL (31.0-37.0); MCV 77.7 fL (80.0-100.0); Mean Platelet Volume 8.3; Microcytosis Slight; Monocytes # (A) 0.5 k/uL (0-1.0); Monocytes % (A) 3 %; Neutrophils # (A) 17.4 k/uL (1.3-7.7); Neutrophils % (A) 94 %; Platelet Count 242 k/uL (150-450); Poikilocytosis Slight; RBC 5.04 m/uL (4.30-5.90); RDW 17.6 % (11.5-15.5); WBC 18.5 k/uL (3.8-10.6)
[2018-02-18 07:51] LABS: Anion Gap 14 mmol/L; Blood Urea Nitrogen 16 mg/dL (9-20); Calcium 9.6 mg/dL (8.4-10.2); Carbon Dioxide 19 mmol/L (22-30); Chloride 107 mmol/L (98-107); Glucose 296 mg/dL (74-99); Potassium 4.6 mmol/L (3.5-5.1); Sodium 140 mmol/L (137-145)
[2018-02-18] MEDS ORDERED: SYMBICORT 160-4.5 MCG INHALER INHALATION SCH (08:00)
[2018-02-18] MEDS: DOCUSATE 100 MG CAP PO SCH ×2 (08:51→20:22)
[2018-02-18] MEDS: CLOPIDOGREL 75 MG TAB PO SCH (08:51)
[2018-02-18] MEDS: LORATADINE 10 MG TAB PO SCH (08:51)
[2018-02-18] MEDS: ATORVASTATIN 10 MG TAB PO SCH (08:52)
[2018-02-18] MEDS: MULTIVITAMINS, THERA 1 EACH TAB PO SCH (08:52)
[2018-02-18] MEDS: GABAPENTIN 400 MG CAP PO SCH ×3 (08:52→21:54)
[2018-02-18] MEDS: DIVALPROEX ER 500 MG TAB.ER.24H PO SCH ×3 (08:52→21:54)
[2018-02-18] MEDS: ASPIRIN 81 MG PO SCH (08:52)
[2018-02-18] MEDS: diphenhydrAMINE 25 MG CAP PO SCH (08:53)
[2018-02-18] MEDS: MELOXICAM 7.5 MG TAB PO SCH (08:53)
[2018-02-18] MEDS: COLCHICINE 0.6 MG EACH PO SCH (08:53)
[2018-02-18] MEDS: THEOPHYLLINE 24 HOUR 300 MG CAP.ER.24H PO SCH (08:54)
[2018-02-18] MEDS: FLUOXETINE HCL PO SCH ×2 (08:54→21:51)
[2018-02-18] MEDS: OLANZAPINE PO SCH ×2 (08:54→21:51)
[2018-02-18] MEDS: QUEtiapine 100 MG TAB PO SCH ×2 (08:54→21:53)
[2018-02-18] MEDS: Tenofovir Disoproxil Fumarate [Viread] 300 MG PO SCH (08:54)
[2018-02-18] MEDS: RITONAVIR 100 MG TAB PO SCH (08:54)
[2018-02-18] MEDS: ABACAVIR SULFATE PO SCH ×2 (08:55→21:51)
[2018-02-18] MEDS: DICYCLOMINE 10 MG CAP PO SCH ×3 (08:55→21:53)
[2018-02-18] MEDS: LAMIVUDINE PO SCH ×2 (08:55→21:51)
[2018-02-18] MEDS: AMMONIUM LACTATE 12% LOTION 225 GM BTL TOPICAL SCH (08:55)
[2018-02-18 08:58] LABS: INR 1.1 (<1.2); Prothrombin Time 11.7 sec (9.0-12.0)
[2018-02-18] MEDS: HYDROmorphone 2 MG TAB PO PRN (08:58)
[2018-02-18] MEDS ORDERED: chlorproMAZINE 25 MG TAB PO SCH ×2 (09:00→21:00)
[2018-02-18 12:19] LABS: Glucose,Whole Blood 295 mg/dL (75-99)
--- NOTE | 2018-02-18 13:33 | PN ---
PROGRESS NOTE DATE OF SERVICE: 02/18/2018 He has been hemodynamically stable. He refused his V/Q scan and lower extremity duplex. He continues to have some wheezing. On physical examination, blood pressure 128/72, respiratory rate of 22, pulse of 94, temperature 97.8, O2 SAT on room air is 97%. HEENT is unremarkable. Chest reveals stridorous sounds with decreased breath sounds. Cardiovascular system reveals an S1, S2. Abdomen is soft. There is no edema. Patient's labs were reviewed and meds were reviewed. IMPRESSION: 1. Severe asthma with acute exacerbation. 2. History of deep venous thrombosis, pulmonary embolism, and factor 5 [place] for which his anticoagulation will need to be optimized on Coumadin. 3. HIV and history of hepatitis B, continue antiviral treatment. Check an allergy profile. Consider ENT evaluation for possible vocal cord dysfunction. Will follow him closely during his hospital stay to follow his condition. MMODL / TANAN: [id number] /
--- NOTE | 2018-02-18 14:01 | P.PN ---
Subjective Progress Note Date: 02/18/18 Principal diagnosis: Acute hypoxic respiratory failure requiring supplemental oxygen Acute exacerbation of asthma and COPD, severe persistent Hypoxia rule out PE/ subtherapeutic anticoagulation This is a 42 year old male who presented to the emergency department complaining of headache and shortness of breath. The patient states he was also having intermittent chest pains. He notes a history of PE and DVT. He states he taking Coumadin at home and has missed some doses. INR is 1.1. He has a history of asthma since childhood. He is on albuterol nebulized, pro-air , Advair, spiriva and prednisone. 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 However he states he hardly ever uses these medications. He denies coughing, fevers, chills. He has multiple drug ALLERGIES. The patient states he was also diagnosed with COPD several years ago. He notes that he used to smoke 3 packs per day since the age of [age] years old. He did quit 3 years ago. He also has a history of obstructive sleep apnea and is supposed to wear CPAP. On examination he is resting up in bed on 3 L of supplemental oxygen via nasal cannula. The patient denies any home oxygen use. 02/18/2018 Patient is seen and evaluated in the room at bedside; patient relates that he is not improving and wants to be transferred to [facility] under care of his primary care physician Dr. Ryan; patient has been refusing CTA chest to rule out PE; remains on IV heparin drip for possible PE and bridged to Coumadin; I personally called and spoke to patient's primary care physician who is agreeable to accept the patient in transfer; case management relates receiving is not going to be able to except patient today due to multiple patient hold in the emergency department and also patient will need prior authorization from insurance prior to transfer; case management is working with the patient to make transfer possible Objective - Vital Signs Vital signs: Vital Signs Temp 97.8 F 02/18/18 08:00 Pulse 94 02/18/18 08:00 Resp 22 02/18/18 08:00 BP 128/72 02/18/18 08:00 Pulse Ox 97 02/18/18 08:00 Intake & Output 02/17/18 02/18/18 02/18/18 18:59 06:59 18:59 Intake Total 350 1166.167 99.513 Balance 350 1166.167 99.513 Weight 91.4 kg Intake: IV 100 Magnesium Sulfate-D5w Pmx 100 1 gm In Dextrose/Water 1 100ml.bag @ 100 mls/hr IVPB Q1H [facility] Rx#: [id number] Intake, IV Titration 71.167 99.513 Amount Heparin Sod,Pork in 0.45% 71.167 99.513 NaCl 25,000 unit In 0.45 % NaCl 1 250ml.bag @ 11.3 UNITS/KG/HR 10 mls/hr IV .Q24H [facility] Rx#:[id number] Oral 250 1095 Other: Voiding Method Toilet Toilet # Voids 3 1 # Bowel Movements 2 - Exam - Constitutional General appearance: Present: average body habitus, cooperative, no acute distress - EENT Eyes: Present: anicteric sclerae, EOMI, PERRLA, normal appearance ENT: Present: hearing grossly normal, normal oropharynx Ears: bilateral: normal - Neck Neck: Present: normal ROM. Absent: lymphadenopathy, rigidity, thyromegaly Carotids: negative: bruit present Thyroid: bilateral: normal size, negative: enlarged, nodule - Respiratory Respiratory: bilateral: CTA, negative: rales, rhonchi, wheezing - Cardiovascular Rhythm: regular Heart sounds: normal: S1, S2 Abnormal Heart Sounds: Absent: systolic murmur, diastolic murmur - Gastrointestinal General gastrointestinal: Present: normal bowel sounds, soft. Absent: distended , organomegaly, tenderness - Genitourinary Genitourinary Comment(s): deferred - Integumentary Integumentary: Present: normal turgor. Absent: jaundiced, rash, ulcer - Neurologic Neurologic: Present: CNII-XII intact. Absent: focal deficits - Musculoskeletal Musculoskeletal: Present: gait normal, strength equal bilaterally - Psychiatric Psychiatric: Present: A&O x's 3, appropriate affect, intact judgment & insight - Labs CBC & Chem 7: 02/18/18 06:43 02/18/18 06:43 Labs: Abnormal Lab Results - Last 24 Hours (Table) 02/17/18 02/17/18 02/18/18 Range/Units 18:04 20:53 06:32 WBC (3.8-10.6) k/uL Hgb (13.0-17.5) gm/dL MCV (80.0-100.0) fL MCH (25.0-35.0) pg RDW (11.5-15.5) % Neutrophils # (1.3-7.7) k/uL Lymphocytes # (1.0-4.8) k/uL APTT (22.0-30.0) sec Carbon Dioxide (22-30) mmol/L Glucose (74-99) mg/dL POC Glucose (mg/dL) 200 H 219 H 316 H (75-99) mg/dL 02/18/18 02/18/18 02/18/18 Range/Units 06:43 06:43 06:43 WBC 18.5 H (3.8-10.6) k/uL Hgb 12.3 L (13.0-17.5) gm/dL MCV 77.7 L (80.0-100.0) fL MCH 24.4 L (25.0-35.0) pg RDW 17.6 H (11.5-15.5) % Neutrophils # 17.4 H (1.3-7.7) k/uL Lymphocytes # 0.5 L (1.0-4.8) k/uL APTT 46.1 H (22.0-30.0) sec Carbon Dioxide 19 L (22-30) mmol/L Glucose 296 H (74-99) mg/dL POC Glucose (mg/dL) (75-99) mg/dL 02/18/18 Range/Units 11:29 WBC (3.8-10.6) k/uL Hgb (13.0-17.5) gm/dL MCV (80.0-100.0) fL MCH (25.0-35.0) pg RDW (11.5-15.5) % Neutrophils # (1.3-7.7) k/uL Lymphocytes # (1.0-4.8) k/uL APTT (22.0-30.0) sec Carbon Dioxide (22-30) mmol/L Glucose (74-99) mg/dL POC Glucose (mg/dL) 295 H (75-99) mg/dL Assessment and Plan Assessment: 1. Acute exacerbation COPD/ asthma - Patient started on bronchodilator therapy as nebulizer - IV Solu-Medrol continue at current dose and tapered to oral prednisone once clinically stable 2. Electrolyte imbalance/hypokalemia - Supplemented with oral potassium and monitor electrolytes closely 3. History of DVT/PE - Anticoagulation therapy with Coumadin; subtherapeutic secondary to noncompliance - We will start patient on IV heparin drip as a bridge to Coumadin therapy; we will discontinue IV heparin once INR is therapeutic - Restart home dose of Coumadin and monitor daily PT/INR - Patient continues to refuse CTA chest recommended by pulmonary service 4. Hypertension 5. Seizure disorder 6. Sleep apnea/CPAP 7. DVT prophylaxis; systemic anticoagulation with IV heparin For all above mentioned chronic medical conditions home medications will be resumed CODE STATUS; DO NOT RESUSCITATE Time with Patient: Greater than 30
[2018-02-18 15:34] LABS: Glucose,Whole Blood 340 mg/dL (75-99)
[2018-02-18] MEDS ORDERED: INSULIN REGULAR BOLUS (FROM DRIP BAG) IV ONE (15:43)
[2018-02-18] MEDS: INSULIN REGULAR 100 UNIT in SODIUM CHLORIDE 0.9% 100 ML IV SCH (16:49)
[2018-02-18] MEDS: HEPARIN SOD,PORK IN 0.45% NACL 25,000 UNIT in 0.45% NACL 1 250ML.BAG IV SCH ×2 (16:57→20:30)
[2018-02-18 17:27] LABS: Glucose,Whole Blood 306 mg/dL (75-99)
[2018-02-18] MEDS ORDERED: INSULIN ASPART 100 UNIT/ML 1 ML 10 ML VIAL SQ SCH (17:30)
[2018-02-18 17:57] LABS: Glucose,Whole Blood 205 mg/dL (75-99)
[2018-02-18] MEDS: diphenhydrAMINE 50 MG CAP PO SCH ×2 (17:59→21:54)
[2018-02-18] MEDS: WARFARIN 5 MG TAB PO SCH (17:59)
[2018-02-18 20:00] LABS: Glucose,Whole Blood 192 mg/dL (75-99)
[2018-02-18] MEDS ORDERED: HYDROmorphone 0.5 MG/0.5 ML SYRINGE IVP STA (20:14)
[2018-02-18] MEDS: cloNIDine HCL 0.1 MG TAB PO SCH (20:22)
[2018-02-18] MEDS: MONTELUKAST 10 MG TAB PO SCH (20:22)
[2018-02-18] MEDS: BUDESONIDE 0.5 MG/2 ML NEBU INHALATION SCH (20:26)
[2018-02-18 22:19] LABS: Glucose,Whole Blood 164 mg/dL (75-99)
[2018-02-19] LABS: Glucose,Whole Blood 259 mg/dL (75-99)
[2018-02-19] MEDS: methylPREDNISolone SOD SUCCI 125 MG/2 ML VIAL IV SCH ×2 (00:10→06:05)
[2018-02-19 02:04] LABS: Glucose,Whole Blood 296 mg/dL (75-99)
[2018-02-19] MEDS: INSULIN REGULAR 100 UNIT in SODIUM CHLORIDE 0.9% 100 ML IV SCH (03:38)
[2018-02-19 04:07] LABS: Glucose,Whole Blood 318 mg/dL (75-99)
[2018-02-19 06:02] LABS: Glucose,Whole Blood 225 mg/dL (75-99)
[2018-02-19] MEDS: PANTOPRAZOLE 40 MG TABLET PO SCH (06:09)
[2018-02-19 06:43] LABS: Anisocytosis Slight; Basophils % (A) 0 %; Eosinophils # (A) 0.1 k/uL (0-0.7); Eosinophils % (A) 1 %; HCT 35.2 % (39.0-53.0); HGB 10.6 gm/dL (13.0-17.5); Hypochromasia Marked; Lymphocytes # (A) 0.3 k/uL (1.0-4.8); Lymphocytes % (A) 3 %; MCH 24.2 pg (25.0-35.0); MCHC 30.2 g/dL (31.0-37.0); MCV 80.2 fL (80.0-100.0); Mean Platelet Volume 7.3; Microcytosis Slight; Monocytes # (A) 0.4 k/uL (0-1.0); Monocytes % (A) 3 %; Neutrophils # (A) 11.6 k/uL (1.3-7.7); Neutrophils % (A) 94 %; Platelet Count 218 k/uL (150-450); Poikilocytosis Slight; RBC 4.39 m/uL (4.30-5.90); RDW 17.6 % (11.5-15.5); WBC 12.4 k/uL (3.8-10.6)
[2018-02-19 06:49] LABS: INR 1.6 (<1.2); Partial Thromboplastin Time 77.2 sec (22.0-30.0); Prothrombin Time 15.8 sec (9.0-12.0)
[2018-02-19 07:19] LABS: Anion Gap 8 mmol/L; Blood Urea Nitrogen 20 mg/dL (9-20); Calcium 9.9 mg/dL (8.4-10.2); Carbon Dioxide 18 mmol/L (22-30); Chloride 120 mmol/L (98-107); Glucose 235 mg/dL (74-99); Potassium 4.4 mmol/L (3.5-5.1); Sodium 146 mmol/L (137-145)
[2018-02-19 08:11] LABS: Glucose,Whole Blood 206 mg/dL (75-99)
[2018-02-19] MEDS: BUDESONIDE 0.5 MG/2 ML NEBU INHALATION SCH (08:31)
[2018-02-19] MEDS: IPRATROPIUM-ALBUTEROL 3 ML NEB INHALATION SCH ×2 (08:31→12:05)
[2018-02-19] MEDS: MELOXICAM 7.5 MG TAB PO SCH (08:42)
[2018-02-19] MEDS: DICYCLOMINE 10 MG CAP PO SCH (08:42)
[2018-02-19] MEDS: LAMIVUDINE PO SCH (08:42)
[2018-02-19] MEDS: GABAPENTIN 400 MG CAP PO SCH (08:42)
[2018-02-19] MEDS: RITONAVIR 100 MG TAB PO SCH (08:42)
[2018-02-19] MEDS: DIVALPROEX ER 500 MG TAB.ER.24H PO SCH (08:42)
[2018-02-19] MEDS: ABACAVIR SULFATE PO SCH (08:42)
[2018-02-19] MEDS: THEOPHYLLINE 24 HOUR 300 MG CAP.ER.24H PO SCH (08:42)
[2018-02-19] MEDS: AMMONIUM LACTATE 12% LOTION 225 GM BTL TOPICAL SCH (08:42)
[2018-02-19] MEDS: LORATADINE 10 MG TAB PO SCH (08:42)
[2018-02-19] MEDS: DOCUSATE 100 MG CAP PO SCH (08:43)
[2018-02-19] MEDS: ASPIRIN 81 MG PO SCH (08:43)
[2018-02-19] MEDS: FLUOXETINE HCL PO SCH (08:43)
[2018-02-19] MEDS: OLANZAPINE PO SCH (08:43)
[2018-02-19] MEDS: QUEtiapine 100 MG TAB PO SCH (08:43)
[2018-02-19] MEDS: CLOPIDOGREL 75 MG TAB PO SCH (08:43)
[2018-02-19] MEDS: Tenofovir Disoproxil Fumarate [Viread] 300 MG PO SCH (08:43)
[2018-02-19] MEDS: ATORVASTATIN 10 MG TAB PO SCH (08:43)
[2018-02-19] MEDS: COLCHICINE 0.6 MG EACH PO SCH (08:43)
[2018-02-19] MEDS: diphenhydrAMINE 50 MG CAP PO SCH (08:43)
[2018-02-19] MEDS: MULTIVITAMINS, THERA 1 EACH TAB PO SCH (08:44)
[2018-02-19 10:35] LABS: Glucose,Whole Blood 280 mg/dL (75-99)
[2018-02-19 12:08] VITALS: PULSE 84
[2018-02-19 12:22] LABS: Glucose,Whole Blood 312 mg/dL (75-99)
--- NOTE | 2018-02-19 12:35 | P.PN ---
Subjective Progress Note Date: 02/19/18 Principal diagnosis: Acute hypoxic respiratory failure requiring supplemental oxygen Acute exacerbation of asthma and COPD, severe persistent Hypoxia rule out PE/ subtherapeutic anticoagulation This is a 42 year old male who presented to the emergency department complaining of headache and shortness of breath. The patient states he was also having intermittent chest pains. He notes a history of PE and DVT. He states he taking Coumadin at home and has missed some doses. INR is 1.1. He has a history of asthma since childhood. He is on albuterol nebulized, pro-air , Advair, spiriva and prednisone. 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 However he states he hardly ever uses these medications. He denies coughing, fevers, chills. He has multiple drug ALLERGIES. The patient states he was also diagnosed with COPD several years ago. He notes that he used to smoke 3 packs per day since the age of [age] years old. He did quit 3 years ago. He also has a history of obstructive sleep apnea and is supposed to wear CPAP. On examination he is resting up in bed on 3 L of supplemental oxygen via nasal cannula. The patient denies any home oxygen use. 02/18/2018 Patient is seen and evaluated in the room at bedside; patient relates that he is not improving and wants to be transferred to [facility] under care of his primary care physician Dr. Ryan; patient has been refusing CTA chest to rule out PE; remains on IV heparin drip for possible PE and bridged to Coumadin; I personally called and spoke to patient's primary care physician who is agreeable to accept the patient in transfer; case management relates receiving is not going to be able to except patient today due to multiple patient hold in the emergency department and also patient will need prior authorization from insurance prior to transfer; case management is working with the patient to make transfer possible 02/19/2018 Patient is seen and evaluated in the room with nursing staff at bedside; patient demanding to have scheduled IV Dilaudid every 6 hours since oral Dilaudid as an effective; patient has had episodes of increased somnolence and decreased responsiveness which has improved with discontinuing IV Dilaudid; patient became verbally abusive and Dilaudid once refused IV Dilaudid; patient' s INR is improved to 1.6 this morning and plan is to discontinue IV heparin in next 24-48 hours once INR is therapeutic Patient's breathing is improved; we will plan to start Solu-Medrol taper to 40 mg IV every 12 hours Patient may be discharged home in next 24 hours once INR is therapeutic Objective - Vital Signs Vital signs: Vital Signs Temp 97.7 F 02/19/18 08:40 Pulse 89 02/19/18 08:40 Resp 17 02/19/18 08:40 BP 141/74 02/19/18 08:40 Pulse Ox 97 02/19/18 08:40 Intake & Output 02/18/18 02/19/18 02/19/18 18:59 06:59 18:59 Intake Total 861.809 4091.829 142.837 Balance 235.102 5489.829 142.837 Weight 93.5 kg Intake: IV 220 normal saline 220 Intake, IV Titration 123.846 141.829 142.837 Amount Heparin Sod,Pork in 0.45% 99.513 79.32 142.837 NaCl 25,000 unit In 0.45 % NaCl 1 250ml.bag @ 11.3 UNITS/KG/HR 10 mls/hr IV .Q24H JOANNE Rx#:[id number] Insulin Regular 100 unit 24.333 62.509 In Sodium Chloride 0.9% 100 ml @ Titrate IV .Q0M JOANNE Rx#:[id number] Oral 240 1000 Other: Voiding Method Toilet # Voids 1 2 - Exam - Constitutional General appearance: Present: average body habitus, cooperative, no acute distress - EENT Eyes: Present: anicteric sclerae, EOMI, PERRLA, normal appearance ENT: Present: hearing grossly normal, normal oropharynx Ears: bilateral: normal - Neck Neck: Present: normal ROM. Absent: lymphadenopathy, rigidity, thyromegaly Carotids: negative: bruit present Thyroid: bilateral: normal size, negative: enlarged, nodule - Respiratory Respiratory: bilateral: CTA, negative: rales, rhonchi, wheezing - Cardiovascular Rhythm: regular Heart sounds: normal: S1, S2 Abnormal Heart Sounds: Absent: systolic murmur, diastolic murmur - Gastrointestinal General gastrointestinal: Present: normal bowel sounds, soft. Absent: distended , organomegaly, tenderness - Genitourinary Genitourinary Comment(s): deferred - Integumentary Integumentary: Present: normal turgor. Absent: jaundiced, rash, ulcer - Neurologic Neurologic: Present: CNII-XII intact. Absent: focal deficits - Musculoskeletal Musculoskeletal: Present: gait normal, strength equal bilaterally - Psychiatric Psychiatric: Present: A&O x's 3, appropriate affect, intact judgment & insight - Labs CBC & Chem 7: 02/19/18 06:09 02/19/18 06:09 Labs: Abnormal Lab Results - Last 24 Hours (Table) 02/18/18 02/18/18 02/18/18 Range/Units 06:43 11:29 14:09 WBC (3.8-10.6) k/uL Hgb (13.0-17.5) gm/dL Hct (39.0-53.0) % MCH (25.0-35.0) pg MCHC (31.0-37.0) g/dL RDW (11.5-15.5) % Neutrophils # (1.3-7.7) k/uL Lymphocytes # (1.0-4.8) k/uL PT (9.0-12.0) sec INR (<1.2) APTT 113.1 H* (22.0-30.0) sec Sodium (137-145) mmol/L Chloride (98-107) mmol/L Carbon Dioxide (22-30) mmol/L Glucose (74-99) mg/dL POC Glucose (mg/dL) 295 H (75-99) mg/dL Hemoglobin A1c 7.0 H (4.0-6.0) % 02/18/18 02/18/18 02/18/18 Range/Units 15:31 17:13 17:30 WBC (3.8-10.6) k/uL Hgb (13.0-17.5) gm/dL Hct (39.0-53.0) % MCH (25.0-35.0) pg MCHC (31.0-37.0) g/dL RDW (11.5-15.5) % Neutrophils # (1.3-7.7) k/uL Lymphocytes # (1.0-4.8) k/uL PT (9.0-12.0) sec INR (<1.2) APTT 59.7 H (22.0-30.0) sec Sodium (137-145) mmol/L Chloride (98-107) mmol/L Carbon Dioxide (22-30) mmol/L Glucose (74-99) mg/dL POC Glucose (mg/dL) 340 H 306 H (75-99) mg/dL Hemoglobin A1c (4.0-6.0) % 02/18/18 02/18/18 02/18/18 Range/Units 17:56 19:58 21:59 WBC (3.8-10.6) k/uL Hgb (13.0-17.5) gm/dL Hct (39.0-53.0) % MCH (25.0-35.0) pg MCHC (31.0-37.0) g/dL RDW (11.5-15.5) % Neutrophils # (1.3-7.7) k/uL Lymphocytes # (1.0-4.8) k/uL PT (9.0-12.0) sec INR (<1.2) APTT (22.0-30.0) sec Sodium (137-145) mmol/L Chloride (98-107) mmol/L Carbon Dioxide (22-30) mmol/L Glucose (74-99) mg/dL POC Glucose (mg/dL) 205 H 192 H 164 H (75-99) mg/dL Hemoglobin A1c (4.0-6.0) % 02/18/18 02/19/18 02/19/18 Range/Units 23:58 02:03 04:05 WBC (3.8-10.6) k/uL Hgb (13.0-17.5) gm/dL Hct (39.0-53.0) % MCH (25.0-35.0) pg MCHC (31.0-37.0) g/dL RDW (11.5-15.5) % Neutrophils # (1.3-7.7) k/uL Lymphocytes # (1.0-4.8) k/uL PT (9.0-12.0) sec INR (<1.2) APTT (22.0-30.0) sec Sodium (137-145) mmol/L Chloride (98-107) mmol/L Carbon Dioxide (22-30) mmol/L Glucose (74-99) mg/dL POC Glucose (mg/dL) 259 H 296 H 318 H (75-99) mg/dL Hemoglobin A1c (4.0-6.0) % 02/19/18 02/19/18 02/19/18 Range/Units 05:59 06:09 06:09 WBC 12.4 H (3.8-10.6) k/uL Hgb 10.6 L (13.0-17.5) gm/dL Hct 35.2 L (39.0-53.0) % MCH 24.2 L (25.0-35.0) pg MCHC 30.2 L (31.0-37.0) g/dL RDW 17.6 H (11.5-15.5) % Neutrophils # 11.6 H (1.3-7.7) k/uL Lymphocytes # 0.3 L (1.0-4.8) k/uL PT 15.8 H (9.0-12.0) sec INR 1.6 H (<1.2) APTT 77.2 H (22.0-30.0) sec Sodium (137-145) mmol/L Chloride (98-107) mmol/L Carbon Dioxide (22-30) mmol/L Glucose (74-99) mg/dL POC Glucose (mg/dL) 225 H (75-99) mg/dL Hemoglobin A1c (4.0-6.0) % 02/19/18 02/19/18 Range/Units 06:09 08:01 WBC (3.8-10.6) k/uL Hgb (13.0-17.5) gm/dL Hct (39.0-53.0) % MCH (25.0-35.0) pg MCHC (31.0-37.0) g/dL RDW (11.5-15.5) % Neutrophils # (1.3-7.7) k/uL Lymphocytes # (1.0-4.8) k/uL PT (9.0-12.0) sec INR (<1.2) APTT (22.0-30.0) sec Sodium 146 H (137-145) mmol/L Chloride 120 H (98-107) mmol/L Carbon Dioxide 18 L (22-30) mmol/L Glucose 235 H (74-99) mg/dL POC Glucose (mg/dL) 206 H (75-99) mg/dL Hemoglobin A1c (4.0-6.0) % Assessment and Plan Assessment: 1. Acute exacerbation COPD/ asthma - Patient started on bronchodilator therapy as nebulizer - IV Solu-Medrol continue at current dose and tapered to oral prednisone once clinically stable 2. Electrolyte imbalance/hypokalemia - Supplemented with oral potassium and monitor electrolytes closely 3. History of DVT/PE - Anticoagulation therapy with Coumadin; subtherapeutic secondary to noncompliance - We will start patient on IV heparin drip as a bridge to Coumadin therapy; we will discontinue IV heparin once INR is therapeutic - Restart home dose of Coumadin and monitor daily PT/INR - Patient continues to refuse CTA chest recommended by pulmonary service 4. Hypertension 5. Seizure disorder 6. Sleep apnea/CPAP 7. DVT prophylaxis; systemic anticoagulation with IV heparin For all above mentioned chronic medical conditions home medications will be resumed CODE STATUS; DO NOT RESUSCITATE Time with Patient: Greater than 30
[2018-02-19 13:31] VITALS: BP 128/80; RESP 20; TEMP 97.8
--- NOTE | 2018-02-19 17:13 | PN ---
PROGRESS NOTE DATE OF SERVICE: 02/19/2018 He continues to have some shortness of breath, but seems to be doing somewhat better overall. On physical examination, vital signs are stable. He is afebrile. Chest reveals decreased breath sounds with an expiratory wheeze. Cardiovascular system reveals an S1, S2. Abdomen is soft. There is no edema. IMPRESSION: 1. Severe asthma with acute exacerbation. 2. Possible vocal cord dysfunction. 3. HIV positive. 4. Hepatitis B. Continue IV steroids, bronchodilators. Increase his activity levels. MMODL / IJN: [id number] /
[2018-02-19] MEDS ORDERED: methylPREDNISolone SOD SUCCI 40 MG/ML 1 ML VIAL IV SCH (21:00)
[2018-02-21 14:49] LABS: Alpha 1 Anti-Trypsin 107 mg/dL (90 - 200)
== END 2018-02-19 13:33 | disposition left against medical advice (07) | DRG 190 ==
LOC: EC 17:33 → 3SCARD 20:10
PROVIDERS: ADMIT Internal Medicine; ATTEND Internal Medicine
DX: J44.1 Chronic obstructive pulmonary disease with (acute) exacerbation (principal); J96.01 Acute respiratory failure with hypoxia; J45.51 Severe persistent asthma with (acute) exacerbation; B19.10 Unspecified viral hepatitis B without hepatic coma; D68.51 Activated protein C resistance; E87.6 Hypokalemia; F41.9 Anxiety disorder, unspecified; G40.909 Epilepsy, unspecified, not intractable, without status epilepticus; G47.33 Obstructive sleep apnea (adult) (pediatric); I11.0 Hypertensive heart disease with heart failure; I25.2 Old myocardial infarction; I50.9 Heart failure, unspecified; T45.515A Adverse effect of anticoagulants, initial encounter; Z21 Asymptomatic human immunodeficiency virus [HIV] infection status; Z66 Do not resuscitate; Z79.01 Long term (current) use of anticoagulants; Z79.02 Long term (current) use of antithrombotics/antiplatelets; Z79.51 Long term (current) use of inhaled steroids; Z79.82 Long term (current) use of aspirin; Z79.899 Other long term (current) drug therapy; Z82.49 Family history of ischemic heart disease and other diseases of the circulatory system; Z86.711 Personal history of pulmonary embolism; Z86.718 Personal history of other venous thrombosis and embolism; Z87.891 Personal history of nicotine dependence; Z91.19 Patient's noncompliance with other medical treatment and regimen; Z88.2 Allergy status to sulfonamides; Z88.8 Allergy status to other drugs, medicaments and biological substances; Z88.6 Allergy status to analgesic agent; Z91.041 Radiographic dye allergy status; Z99.81 Dependence on supplemental oxygen; Z92.21 Personal history of antineoplastic chemotherapy; Z92.3 Personal history of irradiation; Z85.07 Personal history of malignant neoplasm of pancreas
CPT/HCPCS: 36415; 71046; 80048; 80053; 82103; 82104; 82550; 82553; 82785; 83036; 83735; 84484; 85025; 85027; 85610; 85730; 86001; 86003; 86606; 86609; 93005; 93970; 94640; 94644; 96361; 96372; 96374; 96375; 99291

== ENCOUNTER 2018-04-10 19:36 | Inpatient (IN) | payer OTHER ==
[2018-04-10] MEDS ORDERED: ALBUTEROL NEBULIZED 2.5 MG/3 ML INHALATION STA (19:52)
[2018-04-10] MEDS ORDERED: methylPREDNISolone SOD SUCCI 125 MG/2 ML VIAL IV STA (19:58)
[2018-04-10] MEDS ORDERED: MORPHINE SULFATE 4 MG/ML SYRINGE IVP STA (19:59)
[2018-04-10] MEDS ORDERED: ONDANSETRON 4 MG/2 ML VIAL IVP STA (19:59)
[2018-04-10] MEDS ORDERED: diphenhydrAMINE 50 MG/ML 1 ML VIAL IVP STA (20:02)
[2018-04-10] MEDS ORDERED: FAMOTIDINE 20 MG/2 ML VIAL IV STA (20:02)
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
[2018-04-10 20:26] LABS: Anisocytosis Slight; Basophils % (A) 0 %; Eosinophils # (A) 0.1 k/uL (0-0.7); Eosinophils % (A) 1 %; HCT 38.6 % (39.0-53.0); HGB 12.1 gm/dL (13.0-17.5); Hypochromasia Moderate; Lymphocytes # (A) 0.7 k/uL (1.0-4.8); Lymphocytes % (A) 11 %; MCHC 31.3 g/dL (31.0-37.0); MCV 76.7 fL (80.0-100.0); Mean Platelet Volume 8.5; Microcytosis Slight; Monocytes # (A) 0.2 k/uL (0-1.0); Monocytes % (A) 2 %; Neutrophils # (A) 5.9 k/uL (1.3-7.7); Neutrophils % (A) 85 %; Platelet Count 267 k/uL (150-450); Poikilocytosis Slight; RBC 5.03 m/uL (4.30-5.90); RDW 17.4 % (11.5-15.5)
[2018-04-10 20:37] LABS: ALT 35 U/L (21-72); AST 22 U/L (17-59); Albumin 3.8 g/dL (3.5-5.0); Alkaline Phosphatase 89 U/L (38-126); Amylase 70 U/L (30-110); Anion Gap 9 mmol/L; Blood Urea Nitrogen 22 mg/dL (9-20); Calcium 9.4 mg/dL (8.4-10.2); Carbon Dioxide 23 mmol/L (22-30); Chloride 104 mmol/L (98-107); Glucose 390 mg/dL (74-99); Lipase 408 U/L (23-300); Magnesium 1.5 mg/dL (1.6-2.3); Potassium 4.7 mmol/L (3.5-5.1); Sodium 136 mmol/L (137-145); Total Bilirubin 0.5 mg/dL (0.2-1.3); Total Protein 6.2 g/dL (6.3-8.2)
--- NOTE | 2018-04-10 20:43 | XR ---
EXAMINATION TYPE: XR chest 2V DATE OF EXAM: 04/10/2018 COMPARISON: Chest x-ray February 16, 2018 HISTORY: History of pancreatic cancer with chest pain and shortness of breath TECHNIQUE: Frontal and lateral views of the chest are obtained. FINDINGS: There is redemonstration of low lung volumes with bibasilar opacities and central vascular congestion. No pleural effusion or pneumothorax is seen bilaterally The cardiac silhouette size is w ithin normal limits. The osseous structures are intact. IMPRESSION: Low lung volumes and cardiomegaly with mild to moderate central vascular congestion rede monstrated. Correlate for fluid overload state and/or CHF exacerbation.
[2018-04-10 20:46] LABS: Prothrombin Time 10.9 sec (9.0-12.0)
[2018-04-10 20:51] LABS: Partial Thromboplastin Time 16.8 sec (22.0-30.0)
[2018-04-10] MEDS ORDERED: ALBUTEROL NEBULIZED (CONC) 5 MG, SODIUM CHLORIDE 0.9% NEBULIZ 3 ML INHALATION STA ×2 (22:05)
[2018-04-10] MEDS ORDERED: SODIUM CHLORIDE 0.9% 1,000 ML IV ONE (22:09)
[2018-04-10] MEDS ORDERED: HYDROmorphone 2 MG/ML 1 ML SYRINGE IVP STA (22:40)
--- NOTE | 2018-04-10 23:12 | CT ---
EXAM: CT Head Without Intravenous Contrast CLINICAL HISTORY: ITS.REASON CT Reason: Pain TECHNIQUE: Axial computed tomography images of the head/brain without intravenous contrast. DLP is 1099.4 mGy-cm. This CT exam was performed using one or more of the following dose reduction techniques: automated exposure control, adjustment of the mA and/or kV according to patient size, and/or use of iterative reconstruction technique. COMPARISON: CT head 04/18/2015. FINDINGS: Brain: Unremarkable. No hemorrhage. No significant white matter disease. No edema. Ventricles: Unremarkable. No ventriculomegaly. Bones/joints: Unremarkable. No acute fracture. Soft tissues: Unremarkable. Sinuses: Unremarkable as visualized. No acute sinusitis. Mastoid air cells: Unremarkable as visualized. No mastoid effusion. IMPRESSION: No intracranial hemorrhage or other acute intracranial abnormality.
--- NOTE | 2018-04-10 23:22 | CT ---
EXAM: CT Chest Without Intravenous Contrast CLINICAL HISTORY: ITS.REASON CT Reason: Pain TECHNIQUE: Axial computed tomography images of the chest without intravenous contrast. DLP is 885.5 mGy-cm. This CT exam was performed using one or more of the following dose reduction techniques: automated exposure control, adjustment of the mA and/or kV according to patient size, and/or use of iterative reconstruction technique. COMPARISON: None. FINDINGS: Lungs: Bilateral dependent atelectasis. Pleural space: Unremarkable. No pneumothorax. No significant effusion. Heart: Trace pericardial effusion. Bones/joints: Unremarkable. No acute fracture. No dislocation. Soft tissues: Unremarkable. Vasculature: Unremarkable. No thoracic aortic aneurysm. Lymph nodes: Unremarkable. No enlarged lymph nodes. IMPRESSION: No acute traumatic abnormality in the chest. EXAM: CT Abdomen and Pelvis Without Intravenous Contrast CLINICAL HISTORY: ITS.REASON CT Reason: Pain TECHNIQUE: Axial computed tomography images of the abdomen and pelvis without intravenous contrast. DLP is 885.5 mGy-cm. This CT exam was performed using one or more of the following dose reduction techniques: automated exposure control, adjustment of the mA and/or kV according to patient size, and/or use of iterative reconstruction technique. COMPARISON: None. FINDINGS: Lung bases: Unremarkable. No mass. No consolidation. ABDOMEN: Liver: Unremarkable. Gallbladder and bile ducts: Unremarkable. No calcified stones. No ductal dilation. Pancreas: Unremarkable. No ductal dilation. Spleen: Unremarkable. No splenomegaly. Adrenals: Unremarkable. No mass. Kidneys and ureters: Unremarkable. No obstructing stones. No hydronephrosis. Stomach and bowel: Sigmoid colon diverticulosis without evidence of diverticulitis. Moderate colonic stool burden. No obstruction. PELVIS: Appendix: No findings to suggest acute appendicitis. Bladder: Urinary bladder is decompressed. No stones. Reproductive: Unremarkable as visualized. ABDOMEN and PELVIS: Intraperitoneal space: Unremarkable. No free air. No significant fluid collection. Bones/joints: Serpiginous sclerosis of the bilateral femoral heads suggestive of avascular necrosis. No acute fracture. No dislocation. Soft tissues: Left iliopsoas tendon calcification. Metallic density in the left abductor musculature may represent foreign body. Recommend clinical correlation. Vasculature: Infrarenal inferior vena cava filter. No abdominal aortic aneurysm. Lymph nodes: Unremarkable. No enlarged lymph nodes. IMPRESSION: 1. No acute traumatic abnormality in the abdomen or pelvis. 2. Serpiginous sclerosis of the bilateral femoral heads suggestive of avascular necrosis.
[2018-04-10] MEDS ORDERED: INSULIN ASPART (NovoLOG) 100 UNIT/ML VIAL SQ STA (23:49)
[2018-04-10] MEDS ORDERED: SODIUM CHLORIDE 0.9% 500 ML 500 ML IV ONE (23:49)
[2018-04-10] MEDS ORDERED: MORPHINE SULFATE 4 MG/ML SYRINGE IV PRN (23:51)
[2018-04-10] MEDS ORDERED: NALOXONE 0.4 MG/ML 1 ML VIAL IV PRN (23:51)
[2018-04-11] MEDS ORDERED: ALBUTEROL NEBULIZED 2.5 MG/3 ML INHALATION PRN (00:03)
[2018-04-11 00:05] LABS: Glucose,Whole Blood 304 mg/dL (75-99)
[2018-04-11] MEDS ORDERED: HEPARIN SODIUM,PORCINE 10,000 UNIT/ML 1 ML VIAL IV ONE (00:43)
[2018-04-11] MEDS ORDERED: HEPARIN SODIUM,PORCINE 5,000 UNIT/ML 1 ML VIAL IV PRN (00:43)
[2018-04-11] MEDS: HEPARIN SOD,PORK IN 0.45% NACL 25,000 UNIT in 0.45% NACL 1 250ML.BAG IV SCH ×2 (01:18→15:30)
[2018-04-11 01:19] LABS: Glucose,Whole Blood 273 mg/dL (75-99)
[2018-04-11 01:49] LABS: Glucose,Whole Blood 294 mg/dL (75-99)
[2018-04-11] MEDS: SODIUM CHLORIDE 0.9% 1,000 ML IV SCH ×2 (02:22→12:30)
[2018-04-11] MEDS: HYDROmorphone 1 MG/ML 1 ML SYRINGE IVP PRN ×6 (02:35→21:51)
[2018-04-11] MEDS: ALBUTEROL NEBULIZED 2.5 MG/3 ML INHALATION SCH ×6 (04:47→23:43)
[2018-04-11 06:23] LABS: Glucose,Whole Blood 263 mg/dL (75-99)
[2018-04-11] MEDS: INSULIN ASPART (NovoLOG) 100 UNIT/ML VIAL SQ SCH ×4 (06:33→22:00)
[2018-04-11 06:38] LABS: Appearance,Urine Clear (Clear); Bilirubin,Urine Negative (Negative); Blood,Urine Negative (Negative); Color,Urine Yellow; Glucose,Urine (UA) 4+ (Negative); Ketones,Urine Negative (Negative); Leukocyte Esterase,Urine Negative (Negative); Nitrite,Urine Negative (Negative); PH, Urine 5.5 (5.0-8.0); Protein,Urine Negative (Negative); Specific Gravity,Urine 1.021 (1.001-1.035); Urobilinogen,Urine <2.0 mg/dL (<2.0)
[2018-04-11] MEDS: ONDANSETRON 4 MG/2 ML VIAL IVP PRN (06:44)
[2018-04-11 07:03] LABS: Anisocytosis Slight; Basophils % (A) 0 %; Eosinophils # (A) 0.1 k/uL (0-0.7); Eosinophils % (A) 1 %; HCT 35.4 % (39.0-53.0); HGB 11.2 gm/dL (13.0-17.5); Hypochromasia Moderate; Lymphocytes # (A) 0.6 k/uL (1.0-4.8); Lymphocytes % (A) 6 %; MCH 23.8 pg (25.0-35.0); MCHC 31.6 g/dL (31.0-37.0); MCV 75.5 fL (80.0-100.0); Mean Platelet Volume 6.1; Microcytosis Slight; Monocytes # (A) 0.1 k/uL (0-1.0); Monocytes % (A) 2 %; Neutrophils # (A) 8.6 k/uL (1.3-7.7); Neutrophils % (A) 91 %; Platelet Count 162 k/uL (150-450); Poikilocytosis Slight; RBC 4.69 m/uL (4.30-5.90); RDW 17.4 % (11.5-15.5); WBC 9.4 k/uL (3.8-10.6)
[2018-04-11 07:42] LABS: ALT 31 U/L (21-72); AST 19 U/L (17-59); Albumin 3.2 g/dL (3.5-5.0); Alkaline Phosphatase 52 U/L (38-126); Anion Gap 5 mmol/L; Blood Urea Nitrogen 18 mg/dL (9-20); Calcium 8.8 mg/dL (8.4-10.2); Carbon Dioxide 24 mmol/L (22-30); Chloride 107 mmol/L (98-107); Glucose 253 mg/dL (74-99); Potassium 4.7 mmol/L (3.5-5.1); Sodium 136 mmol/L (137-145); Total Bilirubin 0.6 mg/dL (0.2-1.3); Total Protein 5.5 g/dL (6.3-8.2)
[2018-04-11 12:01] LABS: Glucose,Whole Blood 200 mg/dL (75-99)
[2018-04-11] MEDS: methylPREDNISolone SOD SUCCI 125 MG/2 ML VIAL IV SCH ×2 (12:29→17:21)
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
[2018-04-11 13:29] LABS: Hemoglobin A1C 8.4 % (4.0-6.0)
[2018-04-11] MEDS: DICYCLOMINE 10 MG CAP PO SCH ×2 (14:58→22:00)
[2018-04-11] MEDS: DIVALPROEX ER 500 MG TAB.ER.24H PO SCH ×2 (14:58→22:00)
[2018-04-11] MEDS: PANTOPRAZOLE 40 MG TABLET PO SCH (14:58)
[2018-04-11] MEDS: CLOPIDOGREL 75 MG TAB PO SCH (15:00)
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
[2018-04-11] MEDS ORDERED: diphenhydrAMINE 25 MG CAP PO SCH (16:00)
[2018-04-11 16:07] LABS: Glucose,Whole Blood 249 mg/dL (75-99)
[2018-04-11 17:05] LABS: INR 1.1 (<1.2); Prothrombin Time 11.8 sec (9.0-12.0)
[2018-04-11] MEDS: FORMOTEROL FUMARATE 20 MCG/2 ML NEBU INHALATION SCH (20:02)
[2018-04-11 20:46] LABS: Glucose,Whole Blood 291 mg/dL (75-99)
[2018-04-11] MEDS ORDERED: WARFARIN 5 MG TAB PO SCH (21:00)
[2018-04-11] MEDS ORDERED: diphenhydrAMINE 50 MG/ML 1 ML VIAL IVP STA (21:02)
[2018-04-11] MEDS: DOCUSATE 100 MG CAP PO SCH (22:00)
[2018-04-11] MEDS: cloNIDine HCL 0.1 MG TAB PO SCH (22:00)
[2018-04-11] MEDS: MONTELUKAST 10 MG TAB PO SCH (22:00)
[2018-04-12] MEDS: SODIUM CHLORIDE 0.9% 1,000 ML IV SCH ×3 (00:48→21:42)
[2018-04-12] MEDS: methylPREDNISolone SOD SUCCI 125 MG/2 ML VIAL IV SCH ×5 (01:36→23:59)
[2018-04-12] MEDS: HYDROmorphone 1 MG/ML 1 ML SYRINGE IVP PRN ×4 (01:36→20:13)
[2018-04-12] MEDS: ALBUTEROL NEBULIZED 2.5 MG/3 ML INHALATION SCH ×5 (03:46→19:54)
[2018-04-12 05:01] LABS: Hepatitis B Surface AB- Quant 3.5 mIU/mL; Hepatitis C IgG Antibody Non-Reactive (Non-Reactive)
[2018-04-12] MEDS: ONDANSETRON 4 MG/2 ML VIAL IVP PRN (05:06)
[2018-04-12 05:50] LABS: Glucose,Whole Blood 286 mg/dL (75-99)
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
[2018-04-12] MEDS: INSULIN ASPART (NovoLOG) 100 UNIT/ML VIAL SQ SCH ×4 (07:06→21:19)
[2018-04-12] MEDS: PANTOPRAZOLE 40 MG TABLET PO SCH ×2 (07:06→17:48)
[2018-04-12 07:28] LABS: INR 1.1 (<1.2); Partial Thromboplastin Time 92.8 sec (22.0-30.0); Prothrombin Time 11.8 sec (9.0-12.0)
[2018-04-12 07:33] LABS: Anisocytosis Slight; Basophils % (A) 0 %; Eosinophils % (A) 0 %; HCT 32.7 % (39.0-53.0); HGB 10.1 gm/dL (13.0-17.5); Hypochromasia Marked; Lymphocytes # (A) 0.5 k/uL (1.0-4.8); Lymphocytes % (A) 5 %; MCH 24.3 pg (25.0-35.0); MCHC 30.8 g/dL (31.0-37.0); Mean Platelet Volume 7.5; Microcytosis Slight; Monocytes # (A) 0.3 k/uL (0-1.0); Monocytes % (A) 3 %; Neutrophils # (A) 8.4 k/uL (1.3-7.7); Neutrophils % (A) 91 %; Platelet Count 216 k/uL (150-450); Poikilocytosis Slight; RBC 4.14 m/uL (4.30-5.90); WBC 9.3 k/uL (3.8-10.6)
[2018-04-12] MEDS ORDERED: HYDROcodone/APAP 7.5-325MG 1 EACH TAB PO PRN (07:39)
[2018-04-12] MEDS ORDERED: HYDROmorphone 0.5 MG/0.5 ML SYRINGE IVP PRN (07:40)
[2018-04-12] MEDS: HEPARIN SOD,PORK IN 0.45% NACL 25,000 UNIT in 0.45% NACL 1 250ML.BAG IV SCH ×2 (07:54→23:58)
[2018-04-12] MEDS: FORMOTEROL FUMARATE 20 MCG/2 ML NEBU INHALATION SCH ×2 (08:53→19:54)
[2018-04-12] MEDS: THEOPHYLLINE 24 HOUR 300 MG CAP.ER.24H PO SCH (09:05)
[2018-04-12] MEDS: ASPIRIN 81 MG PO SCH (09:05)
[2018-04-12] MEDS: DOCUSATE 100 MG CAP PO SCH ×2 (09:05→21:38)
[2018-04-12] MEDS: DICYCLOMINE 10 MG CAP PO SCH ×3 (09:06→21:36)
[2018-04-12] MEDS: chlorproMAZINE 25 MG TAB PO SCH (09:07)
[2018-04-12] MEDS: RITONAVIR 100 MG TAB PO SCH (09:08)
[2018-04-12] MEDS ORDERED: diphenhydrAMINE 50 MG/ML 1 ML VIAL IVP PRN (09:12)
[2018-04-12] MEDS: DIVALPROEX ER 500 MG TAB.ER.24H PO SCH ×3 (09:24→21:36)
[2018-04-12] MEDS: MULTIVITAMINS, THERA 1 EACH TAB PO SCH (11:26)
[2018-04-12] MEDS: LORATADINE 10 MG TAB PO SCH (11:26)
[2018-04-12] MEDS: CLOPIDOGREL 75 MG TAB PO SCH (11:26)
[2018-04-12] MEDS: AMMONIUM LACTATE 12% LOTION 225 GM BTL TOPICAL SCH (11:26)
[2018-04-12] MEDS: diphenhydrAMINE 25 MG CAP PO SCH ×4 (11:27→21:37)
[2018-04-12] MEDS: LINAGLIPTIN 5 MG TABLET PO SCH (11:27)
[2018-04-12] MEDS: EMTRICITABINE/TENOFOVIR 200MG/300MG PO SCH (11:36)
[2018-04-12] MEDS: Tenofovir Disoproxil Fumarate [Viread] 300 MG PO SCH (11:36)
[2018-04-12 11:37] LABS: Glucose,Whole Blood 338 mg/dL (75-99)
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
[2018-04-12 16:57] LABS: Glucose,Whole Blood 387 mg/dL (75-99)
--- NOTE | 2018-04-12 17:13 | US ---
EXAMINATION TYPE: US venous doppler duplex LE LT DATE OF EXAM: 04/12/2018 3:49 PM COMPARISON: US CLINICAL HISTORY: lower extremity edema. Left leg swelling SIDE PERFORMED: Left TECHNIQUE: The lower extremity deep venous system is examined utilizing real time linear array sonog pablo with graded compression, doppler sonography and color-flow sonography. VESSELS IMAGED: External Iliac Vein (EIV) Common Femoral Vein Deep Femoral Vein Greater Saphenous Vein * Femoral Vein Popliteal Vein Small Saphenous Vein * Proximal Calf Veins (* superficial vessels) Left Leg: Negative for DVT, mid and distal femoral vein difficult/unable to visualize due to large s car medial left thigh IMPRESSION: No evidence of deep venous thrombosis in the left leg.
[2018-04-12] MEDS ORDERED: WARFARIN 7.5 MG TAB PO ONE (18:00)
[2018-04-12 20:23] LABS: Glucose,Whole Blood 409 mg/dL (75-99)
[2018-04-12] MEDS ORDERED: INSULIN ASPART (NovoLOG) 100 UNIT/ML VIAL SQ ONE ×2 (20:42→23:40)
[2018-04-12] MEDS ORDERED: INSULIN DETEMIR (LEVEMIR) 100 UNIT/ML SYR SQ SCH (21:00)
[2018-04-12] MEDS: MONTELUKAST 10 MG TAB PO SCH (21:37)
[2018-04-12] MEDS: cloNIDine HCL 0.1 MG TAB PO SCH (21:38)
--- NOTE | 2018-04-12 22:53 | PN ---
PROGRESS NOTE DATE OF SERVICE: 04/12/2018. REASON FOR FOLLOWUP: Chronic hepatitis B and question of HIV. INTERVAL HISTORY: The patient is afebrile. The patient complains of shortness of breath and cough, not bringing up any sputum. No nausea, no vomiting. No abdominal pain and no diarrhea. PHYSICAL EXAMINATION: Blood pressure 113/70 with a pulse of 103, temperature 97.7, he is 95% on room air. GENERAL DESCRIPTION: A middle aged male up in the bed in no distress. RESPIRATORY SYSTEM: Unlabored breathing with decreased breath sounds in the bases, with no wheeze. HEART: S1, S2. Regular rate and rhythm. ABDOMEN: Soft. LABS: Hemoglobin 10.1, white count 9.3. HIV test is pending. Hepatitis B surface antigen and core antibody positive, likely indicating chronic hepatitis B. DIAGNOSTIC IMPRESSION AND PLAN: Patient with a questionable history of HIV and hepatitis B, has been confirmed. HIV testing is pending. We will check hepatitis B DNA by PCR as well as antigen. Currently on now which will be continued while monitoring his clinical course closely. Continue supportive care. MMODL / IJN: [id number] /
[2018-04-12 23:31] LABS: Glucose,Whole Blood 398 mg/dL (75-99)
[2018-04-12] MEDS ORDERED: KETOROLAC 30 MG/ML 1 ML VIAL IVP STA (23:40)
[2018-04-12] MEDS ORDERED: MORPHINE SULFATE 2 MG/ML SYRINGE IVP STA (23:50)
[2018-04-13] MEDS: ALBUTEROL NEBULIZED 2.5 MG/3 ML INHALATION SCH ×6 (00:05→20:05)
[2018-04-13 00:13] LABS: HIV 1 AB Non-Reactive (Non-Reactive); HIV AB P24 Non-Reactive (Non-Reactive); HIV P24 AG Non-Reactive (Non-Reactive)
[2018-04-13] MEDS: ONDANSETRON 4 MG/2 ML VIAL IVP PRN ×2 (00:33→08:30)
[2018-04-13] MEDS: HYDROmorphone 1 MG/ML 1 ML SYRINGE IVP PRN ×4 (02:07→20:06)
[2018-04-13 02:42] LABS: Glucose,Whole Blood 325 mg/dL (75-99)
[2018-04-13] MEDS ORDERED: INSULIN ASPART (NovoLOG) 100 UNIT/ML VIAL SQ ONE ×3 (02:45→17:50)
[2018-04-13] MEDS ORDERED: MAG HYDROX/AL HYDROX/SIMETH 30 ML CUP PO PRN (02:46)
[2018-04-13] MEDS ORDERED: MAG HYDROX/AL HYDROX/SIMETH 30 ML CUP ONE (02:57)
[2018-04-13] MEDS ORDERED: methylPREDNISolone SOD SUCCI 125 MG/2 ML VIAL ONE (05:45)
[2018-04-13] MEDS: methylPREDNISolone SOD SUCCI 125 MG/2 ML VIAL IV SCH (06:26)
[2018-04-13 06:52] LABS: Glucose,Whole Blood 239 mg/dL (75-99)
[2018-04-13] MEDS: FORMOTEROL FUMARATE 20 MCG/2 ML NEBU INHALATION SCH ×2 (07:37→20:05)
[2018-04-13] MEDS: LORATADINE 10 MG TAB PO SCH (08:11)
[2018-04-13] MEDS: diphenhydrAMINE 25 MG CAP PO SCH ×4 (08:11→21:29)
[2018-04-13] MEDS: DOCUSATE 100 MG CAP PO SCH ×2 (08:11→21:30)
[2018-04-13] MEDS: PANTOPRAZOLE 40 MG TABLET PO SCH ×2 (08:11→17:20)
[2018-04-13] MEDS: ASPIRIN 81 MG PO SCH (08:11)
[2018-04-13] MEDS: INSULIN ASPART (NovoLOG) 100 UNIT/ML VIAL SQ SCH ×4 (08:11→21:31)
[2018-04-13] MEDS: CLOPIDOGREL 75 MG TAB PO SCH (08:11)
[2018-04-13] MEDS: MULTIVITAMINS, THERA 1 EACH TAB PO SCH (08:11)
[2018-04-13] MEDS: chlorproMAZINE 25 MG TAB PO SCH (08:12)
[2018-04-13] MEDS: LINAGLIPTIN 5 MG TABLET PO SCH (08:12)
[2018-04-13] MEDS: DIVALPROEX ER 500 MG TAB.ER.24H PO SCH ×3 (08:12→21:30)
[2018-04-13] MEDS: THEOPHYLLINE 24 HOUR 300 MG CAP.ER.24H PO SCH (08:12)
[2018-04-13] MEDS: RITONAVIR 100 MG TAB PO SCH (08:12)
[2018-04-13] MEDS: DICYCLOMINE 10 MG CAP PO SCH ×3 (08:12→21:30)
[2018-04-13] MEDS: EMTRICITABINE/TENOFOVIR 200MG/300MG PO SCH (08:16)
[2018-04-13 08:50] LABS: Anisocytosis Slight; Basophils % (A) 0 %; Eosinophils % (A) 0 %; HCT 34.1 % (39.0-53.0); HGB 10.7 gm/dL (13.0-17.5); Hypochromasia Marked; Lymphocytes # (A) 0.5 k/uL (1.0-4.8); Lymphocytes % (A) 4 %; MCH 24.3 pg (25.0-35.0); MCHC 31.3 g/dL (31.0-37.0); MCV 77.5 fL (80.0-100.0); Mean Platelet Volume 6.4; Microcytosis Slight; Monocytes # (A) 0.5 k/uL (0-1.0); Monocytes % (A) 3 %; Neutrophils # (A) 12.6 k/uL (1.3-7.7); Neutrophils % (A) 92 %; Platelet Count 221 k/uL (150-450); Poikilocytosis Slight; RDW 17.5 % (11.5-15.5); WBC 13.7 k/uL (3.8-10.6)
[2018-04-13 08:53] LABS: INR 1.4 (<1.2); Prothrombin Time 13.8 sec (9.0-12.0)
[2018-04-13 10:35] VITALS: BMI 32.1
[2018-04-13 11:01] LABS: Hepatitis B Virus DNA DETECTED (Not detected); Log HBV IU/mL 3.68 (<1.00)
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
--- NOTE | 2018-04-13 11:14 | PN ---
PROGRESS NOTE DATE OF SERVICE: 04/13/2018 REASON FOR FOLLOWUP: Chronic hepatitis B. INTERVAL HISTORY: The patient is currently afebrile. The patient is breathing comfortably. The patient denies having any chest pain or any cough. No abdominal pain. No diarrhea. PHYSICAL EXAMINATION: On examination, blood pressure 120/73 with a pulse of 75, temperature 97.3. He is 96% on room air. General description is a middle-aged male lying in bed in no distress. RESPIRATORY SYSTEM: Unlabored breathing with decreased breath sounds at the bases. No wheeze. HEART: S1, S2. Regular rate and rhythm. ABDOMEN: Soft, no tenderness. LABS: Hemoglobin 10.7, white count 13.7. HIV testing came back negative. DIAGNOSTIC IMPRESSION AND PLAN: Patient with chronic hepatitis B for which apparently the patient is on tenofovir for 6 months now. When asked specifically for the patient's previous ID physician so we can get a baseline hepatitis B DNA levels and status status the patient is not clear about it. The patient denies he has been on Norvir for his hepatitis B. The patient at this time will continue on the tenofovir, currently receiving at 300 mg daily. We are waiting for the hepatitis B DNA and the antigen and the patient will be monitored in the outpatient setting closely. All his questions and concerns were answered. MMODL / IJN: [id number] /
[2018-04-13 11:16] LABS: Glucose,Whole Blood 362 mg/dL (75-99)
[2018-04-13] MEDS: Tenofovir Disoproxil Fumarate [Viread] 300 MG PO SCH (12:37)
[2018-04-13] MEDS: AMMONIUM LACTATE 12% LOTION 225 GM BTL TOPICAL SCH (12:37)
[2018-04-13] MEDS: SODIUM CHLORIDE 0.9% 1,000 ML IV SCH (12:46)
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
[2018-04-13 16:30] VITALS: RESP 16
[2018-04-13] MEDS: HEPARIN SOD,PORK IN 0.45% NACL 25,000 UNIT in 0.45% NACL 1 250ML.BAG IV SCH (17:23)
[2018-04-13 17:36] LABS: Glucose,Whole Blood 305 mg/dL (75-99)
[2018-04-13] MEDS ORDERED: WARFARIN 7.5 MG TAB PO ONE (18:00)
[2018-04-13] MEDS: BUDESONIDE 0.5 MG/2 ML NEBU INHALATION SCH (20:05)
[2018-04-13 20:32] LABS: Glucose,Whole Blood 340 mg/dL (75-99)
[2018-04-13] MEDS ORDERED: INSULIN DETEMIR (LEVEMIR) 100 UNIT/ML SYR SQ SCH (21:00)
[2018-04-13] MEDS: cloNIDine HCL 0.1 MG TAB PO SCH (21:29)
[2018-04-13] MEDS: MONTELUKAST 10 MG TAB PO SCH (21:30)
[2018-04-13 23:10] LABS: Glucose,Whole Blood 340 mg/dL (75-99)
[2018-04-14] MEDS: ALBUTEROL NEBULIZED 2.5 MG/3 ML INHALATION SCH ×4 (00:50→12:47)
[2018-04-14] MEDS: HYDROmorphone 1 MG/ML 1 ML SYRINGE IVP PRN ×2 (02:15→07:55)
[2018-04-14] MEDS: SODIUM CHLORIDE 0.9% 1,000 ML IV SCH (03:31)
[2018-04-14 05:23] VITALS: BP 112/68; TEMP 97.6
[2018-04-14 07:32] LABS: Glucose,Whole Blood 181 mg/dL (75-99)
[2018-04-14 07:44] LABS: Anisocytosis Slight; Basophils % (A) 0 %; Eosinophils # (A) 0.1 k/uL (0-0.7); Eosinophils % (A) 0 %; HCT 32.3 % (39.0-53.0); HGB 10.4 gm/dL (13.0-17.5); Hypochromasia Moderate; Lymphocytes % (A) 7 %; MCH 24.1 pg (25.0-35.0); MCHC 32.1 g/dL (31.0-37.0); Mean Platelet Volume 5.6; Microcytosis Moderate; Monocytes # (A) 0.8 k/uL (0-1.0); Monocytes % (A) 6 %; Neutrophils # (A) 11.7 k/uL (1.3-7.7); Neutrophils % (A) 86 %; Platelet Count 178 k/uL (150-450); Poikilocytosis Slight; RBC 4.31 m/uL (4.30-5.90); RDW 18.2 % (11.5-15.5); WBC 13.6 k/uL (3.8-10.6)
[2018-04-14] MEDS: INSULIN ASPART (NovoLOG) 100 UNIT/ML VIAL SQ SCH ×2 (07:51→12:31)
[2018-04-14] MEDS: HEPARIN SOD,PORK IN 0.45% NACL 25,000 UNIT in 0.45% NACL 1 250ML.BAG IV SCH (07:51)
[2018-04-14] MEDS: diphenhydrAMINE 25 MG CAP PO SCH ×2 (07:52→12:32)
[2018-04-14] MEDS: ASPIRIN 81 MG PO SCH ×2 (07:52→09:06)
[2018-04-14] MEDS: CLOPIDOGREL 75 MG TAB PO SCH ×2 (07:52→09:06)
[2018-04-14] MEDS: LORATADINE 10 MG TAB PO SCH (07:52)
[2018-04-14] MEDS: PANTOPRAZOLE 40 MG TABLET PO SCH ×2 (07:52→09:06)
[2018-04-14] MEDS: DOCUSATE 100 MG CAP PO SCH ×2 (07:53→09:07)
[2018-04-14] MEDS: EMTRICITABINE/TENOFOVIR 200MG/300MG PO SCH (07:53)
[2018-04-14] MEDS: THEOPHYLLINE 24 HOUR 300 MG CAP.ER.24H PO SCH (07:54)
[2018-04-14] MEDS: DICYCLOMINE 10 MG CAP PO SCH ×2 (07:54→09:06)
[2018-04-14] MEDS: chlorproMAZINE 25 MG TAB PO SCH ×2 (07:54→09:06)
[2018-04-14] MEDS: LINAGLIPTIN 5 MG TABLET PO SCH ×2 (07:54→09:06)
[2018-04-14] MEDS: DIVALPROEX ER 500 MG TAB.ER.24H PO SCH ×2 (07:54→09:06)
[2018-04-14 08:08] LABS: Prothrombin Time 19.4 sec (9.0-12.0)
[2018-04-14] MEDS: AMMONIUM LACTATE 12% LOTION 225 GM BTL TOPICAL SCH (08:09)
[2018-04-14] MEDS: Tenofovir Disoproxil Fumarate [Viread] 300 MG PO SCH (08:13)
[2018-04-14] MEDS: FORMOTEROL FUMARATE 20 MCG/2 ML NEBU INHALATION SCH (08:16)
[2018-04-14] MEDS: BUDESONIDE 0.5 MG/2 ML NEBU INHALATION SCH (08:17)
[2018-04-14 08:25] LABS: Partial Thromboplastin Time 154.9 sec (22.0-30.0)
[2018-04-14] MEDS ORDERED: predniSONE 20 MG TAB PO SCH (09:00)
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
[2018-04-14] MEDS ORDERED: HYDROmorphone 1 MG/ML 1 ML SYRINGE IVP STA (11:24)
[2018-04-14] MEDS: MULTIVITAMINS, THERA 1 EACH TAB PO SCH (11:34)
[2018-04-14 12:17] LABS: Glucose,Whole Blood 291 mg/dL (75-99)
[2018-04-14 12:54] VITALS: PULSE 84
--- NOTE | 2018-04-14 13:53 | P.PN ---
Progress Note - Text Issues with the prescription system and EMR. Patient's Breo, Singulair, Albuterol, and Prednisone have been prescribed electronically through our office to [facility].
--- NOTE | 2018-04-14 13:55 | PN ---
PROGRESS NOTE DATE OF SERVICE: 04/14/2018 REASON FOR FOLLOWUP: Chronic hepatitis B. INTERVAL HISTORY: The patient is currently afebrile. The patient is breathing comfortably. Denies having any chest pain or any cough. No abdominal pain, no diarrhea. PHYSICAL EXAMINATION: Blood pressure 112/68 with a pulse of 94, temperature is 97.6. He is 98% on room air. General description is a middle-aged male, lying in bed in no distress. RESPIRATORY SYSTEM: Unlabored breathing, clear to auscultation. HEART: S1, S2. Regular rate and rhythm. ABDOMEN: Soft, no tenderness. LABS: Hemoglobin 10.4, white count 13.6. Hepatitis B, DNA 4750, core antibody reactive. ENT is currently pending. HIV negative. Hepatitis C negative. ALT normal at 31. DIAGNOSTIC IMPRESSION/PLAN: 1. Patient with chronic hepatitis B for the patient has been on for more than 6 months now. 2. To get a baseline, hepatitis B DNA has been repeated. His ENT chest studies are pending. The patient will be continued on 10 of over 25 mg daily prescription sent to pharmacy with close outpatient followup question: NADINE / RADHA: [id number] /
[2018-04-14] MEDS ORDERED: WARFARIN 5 MG TAB PO SCH (18:00)
== END 2018-04-14 14:25 | disposition home health service (06) | DRG 202 ==
LOC: EC 19:36 → 3SCARD 04-11 00:03 → INTOOBSV 04-11 00:03 → OBSVTOIN 04-12 09:32 → 3NMEDONC 04-12 12:51
PROVIDERS: ADMIT Family Medicine; ATTEND Family Medicine
DX: J45.51 Severe persistent asthma with (acute) exacerbation (principal); B18.1 Chronic viral hepatitis B without delta-agent; D68.2 Hereditary deficiency of other clotting factors; J44.1 Chronic obstructive pulmonary disease with (acute) exacerbation; J98.11 Atelectasis; I69.954 Hemiplegia and hemiparesis following unspecified cerebrovascular disease affecting left non-dominant side; I50.9 Heart failure, unspecified; I11.0 Hypertensive heart disease with heart failure; E11.65 Type 2 diabetes mellitus with hyperglycemia; I48.91 Unspecified atrial fibrillation; D50.9 Iron deficiency anemia, unspecified; D72.829 Elevated white blood cell count, unspecified; F41.9 Anxiety disorder, unspecified; G40.909 Epilepsy, unspecified, not intractable, without status epilepticus; G47.33 Obstructive sleep apnea (adult) (pediatric); I25.10 Atherosclerotic heart disease of native coronary artery without angina pectoris; I25.2 Old myocardial infarction; M94.0 Chondrocostal junction syndrome [Tietze]; T38.0X5A Adverse effect of glucocorticoids and synthetic analogues, initial encounter; M54.9 Dorsalgia, unspecified; R26.9 Unspecified abnormalities of gait and mobility; R79.1 Abnormal coagulation profile; Z79.01 Long term (current) use of anticoagulants; Z79.02 Long term (current) use of antithrombotics/antiplatelets; Z79.51 Long term (current) use of inhaled steroids; Z79.82 Long term (current) use of aspirin; Z79.899 Other long term (current) drug therapy; Z86.711 Personal history of pulmonary embolism; Z86.718 Personal history of other venous thrombosis and embolism; Z87.891 Personal history of nicotine dependence; Z91.19 Patient's noncompliance with other medical treatment and regimen; Z88.5 Allergy status to narcotic agent; Z88.2 Allergy status to sulfonamides; Z88.8 Allergy status to other drugs, medicaments and biological substances; Z91.041 Radiographic dye allergy status; Z85.9 Personal history of malignant neoplasm, unspecified; Z92.21 Personal history of antineoplastic chemotherapy; Z92.3 Personal history of irradiation; Z90.49 Acquired absence of other specified parts of digestive tract; Z80.1 Family history of malignant neoplasm of trachea, bronchus and lung; Z80.3 Family history of malignant neoplasm of breast; Z82.49 Family history of ischemic heart disease and other diseases of the circulatory system; Z84.89 Family history of other specified conditions; V43.52XA Car driver injured in collision with other type car in traffic accident, initial encounter
CPT/HCPCS: 36410; 36415; 70450; 71046; 71250; 74176; 76937; 80053; 81003; 82150; 83036; 83605; 83690; 83735; 83880; 84484; 85025; 85379; 85610; 85730; 86704; 86706; 86803; 87040; 87340; 87350; 87390; 87517; 93005; 94640; 94760; 96361; 96374; 96375; 99285

== ENCOUNTER 2018-08-19 16:50 | Inpatient (IN) | payer OTHER ==
[2018-08-19] MEDS ORDERED: ALBUTEROL NEBULIZED 2.5 MG/3 ML INHALATION STA ×2 (17:48→19:04)
[2018-08-19] MEDS ORDERED: DEXAMETHASONE 4 MG TAB PO STA (17:48)
[2018-08-19] MEDS ORDERED: SODIUM CHLORIDE 0.9% 500 ML IV STA (17:49)
[2018-08-19] MEDS: IPRATROPIUM 0.5 MG/2.5 ML NEBU INHALATION STA ×2 (18:03→18:14)
[2018-08-19] MEDS ORDERED: diphenhydrAMINE 50 MG/ML 1 ML VIAL IVP STA (18:04)
[2018-08-19 18:08] LABS: Anisocytosis Slight; Basophils % (A) 0 %; Eosinophils # (A) 0.1 k/uL (0-0.7); Eosinophils % (A) 1 %; HCT 39.5 % (39.0-53.0); HGB 12.9 gm/dL (13.0-17.5); Lymphocytes # (A) 1.3 k/uL (1.0-4.8); Lymphocytes % (A) 19 %; MCHC 32.7 g/dL (31.0-37.0); MCV 82.6 fL (80.0-100.0); Mean Platelet Volume 6.9; Microcytosis Slight; Monocytes # (A) 0.3 k/uL (0-1.0); Monocytes % (A) 5 %; Neutrophils % (A) 74 %; Platelet Count 199 k/uL (150-450); RBC 4.78 m/uL (4.30-5.90); RDW 18.3 % (11.5-15.5); WBC 6.8 k/uL (3.8-10.6)
[2018-08-19] MEDS: MAGNESIUM SULFATE-D5W PMX 1 GM in DEXTROSE/WATER 1 100ML.BAG IVPB SCH ×2 (18:09→19:36)
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
[2018-08-19 18:16] LABS: African American GFR (CKD) >90 (>60 ml/min/1.73 sqM); Anion Gap 9 mmol/L; Blood Urea Nitrogen 20 mg/dL (9-20); Calcium 8.7 mg/dL (8.4-10.2); Carbon Dioxide 23 mmol/L (22-30); Chloride 105 mmol/L (98-107); Glucose 206 mg/dL (74-99); Magnesium 1.5 mg/dL (1.6-2.3); Potassium 4.3 mmol/L (3.5-5.1); Sodium 137 mmol/L (137-145)
[2018-08-19] MEDS ORDERED: IPRATROPIUM 0.5 MG/2.5 ML NEBU INHALATION STA (19:04)
--- NOTE | 2018-08-19 19:32 | XR ---
EXAMINATION TYPE: XR chest 2V DATE OF EXAM: 08/19/2018 COMPARISON: 04/10/2018 INDICATION: Pain short of breath TECHNIQUE: Frontal and lateral views of the chest are obtained. FINDINGS: The heart size is normal. The pulmonary vasculature is normal. Mild bibasilar atelectasis appears to be present. This may be greater at the posterior left lung base . This is exacerbated by poor inspiration on these images. IMPRESSION: 1. Left basilar subsegmental atelectasis may be due to limited inspiration.
[2018-08-19 20:22] LABS: Prothrombin Time 10.4 sec (9.0-12.0)
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
[2018-08-19] MEDS ORDERED: WARFARIN 5 MG TAB PO SCH (21:00)
[2018-08-19] MEDS ORDERED: WARFARIN 7.5 MG TAB PO ONE (21:00)
--- NOTE | 2018-08-19 21:19 | CT ---
EXAMINATION TYPE: CT brain wo con DATE OF EXAM: 08/19/2018 COMPARISON: 04/10/2018 INDICATION: Patient poor historian DLP: 1142.4 mGycm, Automated exposure control for dose reduction was used. CONTRAST: None CT of the brain is performed utilizing 3 mm thick sections through the posterior fossa and 3 mm thick sections through the remaining calvarium. Study is performed within 24 hours of arrival to the hosp [facility]. No abnormal hyperdensity is present to suggest an acute intracranial hemorrhage. No mass lesion is evident. No acute infarcts are evident. Ventricles and sulci are appropriate for the patient age. Paranasal sinuses and mastoid air cells within the noizt-we-amha are clear. IMPRESSIONS: 1. Normal CT Brain
[2018-08-19 21:26] LABS: ABG Base Excess -2.6 mmol/L; ABG HCO3 22 mmol/L (21-25); ABG Oxygen Saturation 99.8 % (94-97); ABG PCO2 36 mmHg (35-45); ABG PO2 186 mmHg (83-108); ABG TCO2 23 mmol/L (19-24)
[2018-08-19 21:27] LABS: Glucose,Whole Blood 299 mg/dL (75-99)
[2018-08-19] MEDS: ALBUTEROL NEBULIZED 2.5 MG/3 ML INHALATION SCH (21:39)
[2018-08-19] MEDS: INSULIN ASPART (NovoLOG) 100 UNIT/ML VIAL SQ SCH (22:04)
[2018-08-19] MEDS: DIVALPROEX ER 500 MG TAB.ER.24H PO SCH (22:04)
[2018-08-20] MEDS: ALBUTEROL NEBULIZED 2.5 MG/3 ML INHALATION PRN ×3 (00:43→23:24)
[2018-08-20] MEDS ORDERED: MORPHINE SULFATE 2 MG/ML SYRINGE IVP STA (02:10)
[2018-08-20 06:50] LABS: Glucose,Whole Blood 317 mg/dL (75-99)
[2018-08-20] MEDS: INSULIN ASPART (NovoLOG) 100 UNIT/ML VIAL SQ SCH ×4 (07:13→21:28)
[2018-08-20] MEDS: ASPIRIN 81 MG PO SCH (07:16)
[2018-08-20] MEDS: RITONAVIR 100 MG TAB PO SCH (07:17)
[2018-08-20] MEDS: DIVALPROEX ER 500 MG TAB.ER.24H PO SCH ×3 (07:17→21:29)
[2018-08-20] MEDS ORDERED: IPRATROPIUM-ALBUTEROL 3 ML NEB INHALATION PRN (07:17)
[2018-08-20 07:25] LABS: Prothrombin Time 10.8 sec (9.0-12.0)
[2018-08-20] MEDS ORDERED: FORMOTEROL FUMARATE 20 MCG/2 ML NEBU INHALATION SCH (08:00)
[2018-08-20] MEDS: ALBUTEROL NEBULIZED 2.5 MG/3 ML INHALATION SCH ×4 (09:00→20:16)
[2018-08-20] MEDS ORDERED: predniSONE 20 MG TAB PO SCH (09:00)
[2018-08-20] MEDS ORDERED: LINAGLIPTIN 5 MG TABLET PO SCH (09:00)
--- NOTE | 2018-08-20 09:48 | P.PN ---
Subjective Progress Note Date: 08/20/18 Patient here for acute asthma exacerbation that presented with conversational dyspnea and was on BiPAP overnight, now improved breathing is not as dyspneic. Serum magnesium 1.5 will be replaced today, no blood sugars continue to be elevated to correction scale coverage. CT head normal without any acute intracranial pathology. Objective - Vital Signs Vital signs: Vital Signs Temp 97.9 F 08/20/18 07:00 Pulse 92 08/20/18 09:20 Resp 16 08/20/18 07:00 BP 132/75 08/20/18 07:00 Pulse Ox 98 08/20/18 07:00 Intake & Output 08/19/18 08/20/18 08/20/18 18:59 06:59 18:59 Weight 90.265 kg Other: Voiding Method Urinal # Voids 0 - Exam Constitutional: No acute distress, conversant, pleasant Eyes: Anicteric sclerae, moist conjunctiva, no lid-lag, PERRLA ENMT: NC/AT,Oropharynx clear, no erythema, exudates Neck:Supple, FROM, no masses, or JVD, No carotid bruits; No thyromegaly Lungs: Diminished in the bases, with mild expiratory wheezes Cardiovascular: Heart regular in rate and rhythm, No murmurs, gallops, or rubs no peripheral edema Abdominal: Soft Nontender, nom distended, no guarding, no rebound or rigidity, Normoactive bowel sounds No hepatomegaly, No splenomegaly, No palpable mass No abdominal wall hernia noted Skin: Normal temperature, tone, texture, turgor, No induration No subcutaneous nodules, No rash, lesions, No ulcers Extremities:No digital cyanosis No clubbing, Pedal pulses intact and symmetrical Radial pulses intact and symmetrical Normal gait and station, No calf tenderness Psychiatric: Alert and oriented to person, place and time, Appropriate affect Intact judgement Neuro: Muscles Strength 5/5 in all 4 extremities, Sensation to light touch grossly present throughout, Cranial nerves II-XII grossly intact. No focal sensory deficits - Labs CBC & Chem 7: 08/19/18 17:25 08/19/18 17:25 Labs: Abnormal Lab Results - Last 24 Hours (Table) 08/19/18 08/19/18 08/19/18 Range/Units 17:25 17:25 21:22 Hgb 12.9 L (13.0-17.5) gm/dL RDW 18.3 H (11.5-15.5) % ABG pO2 186 H (83-108) mmHg ABG O2 Saturation 99.8 H (94-97) % Glucose 206 H (74-99) mg/dL POC Glucose (mg/dL) (75-99) mg/dL Magnesium 1.5 L (1.6-2.3) mg/dL 08/19/18 08/20/18 Range/Units 21:25 06:48 Hgb (13.0-17.5) gm/dL RDW (11.5-15.5) % ABG pO2 (83-108) mmHg ABG O2 Saturation (94-97) % Glucose (74-99) mg/dL POC Glucose (mg/dL) 299 H 317 H (75-99) mg/dL Magnesium (1.6-2.3) mg/dL Assessment and Plan Assessment: Acute asthma exacerbation -C/w Albuterol, Daily peak-flows, Solu-Medrol, and Perforomist -Bipap as needed will plan to consult pulmonary Hypomagnesemia - We'll replete and recheck labs in the morning Factor V leiden, Afib, Hx of DVT, on Coumadin (held due to recent head trauma) -CT of the head negative resumed home medications including Coumadin and Plavix * INR currently subtherapeutic at 1. Continue to monitor DM -RUPERT with FS -Hold oral hypoglycemics HIV, on therapy -C/w home medications Abdominal pain w/ nausea and vomiting, no diarrhea or fever, soft abdomen -Possibly viral enteritis -Anti-emetics and pain control prn Seizure disorder -C/w home meds DVT prophylaxis -Coumadin bridging therapy Disposition - Patient is breathing is much improved, anticipated discharge tomorrow
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
[2018-08-20 11:57] LABS: Glucose,Whole Blood 276 mg/dL (75-99)
[2018-08-20 12:08] VITALS: BMI 28.5
[2018-08-20] MEDS: TENOFOVIR ALAFENAMIDE FUMARATE 25 MG PO SCH (12:29)
[2018-08-20] MEDS: methylPREDNISolone SOD SUCCI 125 MG/2 ML VIAL IV SCH ×3 (12:31→18:29)
[2018-08-20] MEDS: MAGNESIUM SULFATE-D5W PMX 1 GM in DEXTROSE/WATER 1 100ML.BAG IVPB SCH ×2 (12:48→15:10)
[2018-08-20 16:52] LABS: Glucose,Whole Blood 337 mg/dL (75-99)
[2018-08-20] MEDS ORDERED: WARFARIN 5 MG TAB PO SCH (18:00)
[2018-08-20] MEDS ORDERED: WARFARIN 7.5 MG TAB PO ONE (18:00)
[2018-08-20] MEDS ORDERED: INSULIN ASPART (NovoLOG) 100 UNIT/ML VIAL SQ ONE (18:07)
[2018-08-20] MEDS: diphenhydrAMINE 25 MG CAP PO SCH ×2 (18:14→21:28)
[2018-08-20] MEDS: DICYCLOMINE 10 MG CAP PO SCH ×2 (18:17→21:29)
[2018-08-20] MEDS: SYMBICORT 160-4.5 MCG INHALER INHALATION SCH (20:19)
[2018-08-20 20:31] LABS: Glucose,Whole Blood 331 mg/dL (75-99)
[2018-08-20 21:14] LABS: Glucose,Whole Blood 367 mg/dL (75-99)
[2018-08-20] MEDS: DOCUSATE 100 MG CAP PO SCH (21:28)
[2018-08-20] MEDS: MONTELUKAST 10 MG TAB PO SCH (21:28)
[2018-08-20] MEDS ORDERED: INSULIN DETEMIR (LEVEMIR) 100 UNIT/ML SYR SQ SCH ×2 (22:30)
[2018-08-20 23:28] LABS: Glucose,Whole Blood 377 mg/dL (75-99)
[2018-08-20] MEDS ORDERED: INSULIN REGULAR BOLUS (FROM DRIP BAG) IV ONE (23:40)
[2018-08-21] MEDS: methylPREDNISolone SOD SUCCI 125 MG/2 ML VIAL IV SCH ×5 (00:06→23:06)
[2018-08-21] MEDS ORDERED: INSULIN REGULAR 100 UNIT/ML VIAL IV ONE (00:37)
[2018-08-21 01:21] LABS: Glucose,Whole Blood 338 mg/dL (75-99)
[2018-08-21] MEDS: INSULIN REGULAR 100 UNIT in SODIUM CHLORIDE 0.9% 100 ML IV SCH ×6 (01:26→21:19)
[2018-08-21 01:55] LABS: Glucose,Whole Blood 273 mg/dL (75-99)
[2018-08-21 02:29] LABS: Glucose,Whole Blood 264 mg/dL (75-99)
[2018-08-21 02:59] LABS: Glucose,Whole Blood 162 mg/dL (75-99)
[2018-08-21] MEDS: ALBUTEROL NEBULIZED 2.5 MG/3 ML INHALATION PRN (03:42)
[2018-08-21 05:08] LABS: Glucose,Whole Blood 286 mg/dL (75-99)
[2018-08-21 07:14] LABS: Glucose,Whole Blood 268 mg/dL (75-99)
[2018-08-21] MEDS ORDERED: INSULIN ASPART (NovoLOG) 100 UNIT/ML VIAL SQ SCH (07:30)
[2018-08-21] MEDS: ALBUTEROL NEBULIZED 2.5 MG/3 ML INHALATION SCH ×4 (08:08→20:12)
[2018-08-21] MEDS: SYMBICORT 160-4.5 MCG INHALER INHALATION SCH ×2 (08:08→20:13)
[2018-08-21 08:26] LABS: INR 1.5 (<1.2); Prothrombin Time 15.2 sec (9.0-12.0)
[2018-08-21] MEDS: THEOPHYLLINE 24 HOUR 300 MG CAP.ER.24H PO SCH (08:35)
[2018-08-21] MEDS: MULTIVITAMINS, THERA 1 EACH TAB PO SCH (08:35)
[2018-08-21] MEDS: DOCUSATE 100 MG CAP PO SCH ×2 (08:35→20:32)
[2018-08-21] MEDS: DIVALPROEX ER 500 MG TAB.ER.24H PO SCH ×3 (08:35→21:21)
[2018-08-21] MEDS: CLOPIDOGREL 75 MG TAB PO SCH (08:35)
[2018-08-21] MEDS: DICYCLOMINE 10 MG CAP PO SCH ×3 (08:35→21:21)
[2018-08-21] MEDS: ASPIRIN 81 MG PO SCH (08:36)
[2018-08-21] MEDS: diphenhydrAMINE 25 MG CAP PO SCH ×3 (08:36→21:20)
[2018-08-21] MEDS: RITONAVIR 100 MG TAB PO SCH (08:36)
[2018-08-21] MEDS: LORATADINE 10 MG TAB PO SCH (08:36)
[2018-08-21] MEDS: TENOFOVIR ALAFENAMIDE FUMARATE 25 MG PO SCH (08:37)
[2018-08-21] MEDS: AMMONIUM LACTATE 12% LOTION 225 GM BTL TOPICAL SCH (08:41)
[2018-08-21 09:08] LABS: Glucose,Whole Blood 364 mg/dL (75-99)
[2018-08-21 10:54] LABS: Glucose,Whole Blood 275 mg/dL (75-99)
--- NOTE | 2018-08-21 11:53 | P.PN ---
Subjective Progress Note Date: 08/21/18 Principal diagnosis: Asthma exacerbation Patient was seen and examined. No acute events overnight. Patient reports improvement in his breathing. Continues to complain of chest tightness. States that he was able to ambulate to the bathroom and back without much difficulty today. States that he needs a nebulizer machine at home. Currently saturating 91% on room air. Vitals are stable except for tachycardia with heart rate greater than 100. He denies any chest pain or palpitations. No nausea or vomiting. No fever or chills. Objective - Vital Signs Vital signs: Vital Signs Temp 98.2 F 08/21/18 07:00 Pulse 94 08/21/18 11:20 Resp 16 08/21/18 07:00 BP 116/68 08/21/18 07:00 Pulse Ox 99 08/21/18 07:00 Intake & Output 08/20/18 08/21/18 08/21/18 18:59 06:59 18:59 Intake Total 29.033 297.100 Output Total 700 Balance -700 29.033 297.100 Weight 90.265 kg Intake: Intake, IV Titration 29.033 47.100 Amount Insulin Regular 100 unit 29.033 47.100 In Sodium Chloride 0.9% 100 ml @ Titrate IV .Q0M [facility] Rx#:[id number] Oral 250 Output: Urine 700 Other: # Voids 2 1 2 - Exam General: [non toxic], [no distress], [appears at stated age] Derm: [warm], [dry] Head: [atraumatic], [normocephalic], [symmetric] Eyes: [EOMI], [no lid lag], [anicteric sclera] Mouth: [no lip lesion], [mucus membranes moist] Cardiovascular: [S1S2 reg], [tachycardia], [positive DP pulse bilateral], Lungs: [Decreased breath sounds bilateral], [no rhonchi, no rales] , [no accessory muscle use] Abdominal: [soft], [ nontender to palpation], [no guarding], [no appreciable organomegaly] Ext: [no gross muscle atrophy], [no edema], [no contractures] Neuro: [no focal neuro deficits] Psych: [Alert], [oriented], [appropriate affect] - Labs CBC & Chem 7: 08/19/18 17:25 08/19/18 17:25 Labs: Abnormal Lab Results - Last 24 Hours (Table) 08/20/18 08/20/18 08/20/18 Range/Units 11:54 16:49 20:30 PT (9.0-12.0) sec INR (<1.2) POC Glucose (mg/dL) 276 H 337 H 331 H (75-99) mg/dL 08/20/18 08/20/18 08/21/18 Range/Units 21:13 23:26 01:20 PT (9.0-12.0) sec INR (<1.2) POC Glucose (mg/dL) 367 H 377 H 338 H (75-99) mg/dL 08/21/18 08/21/18 08/21/18 Range/Units 01:53 02:26 02:57 PT (9.0-12.0) sec INR (<1.2) POC Glucose (mg/dL) 273 H 264 H 162 H (75-99) mg/dL 08/21/18 08/21/18 08/21/18 Range/Units 05:07 07:06 07:48 PT 15.2 H (9.0-12.0) sec INR 1.5 H (<1.2) POC Glucose (mg/dL) 286 H 268 H (75-99) mg/dL 08/21/18 08/21/18 Range/Units 09:05 10:52 PT (9.0-12.0) sec INR (<1.2) POC Glucose (mg/dL) 364 H 275 H (75-99) mg/dL Assessment and Plan Assessment: Acute asthma exacerbation Steroid-induced hyperglycemia with history of diabetes mellitus Factor V [place] on Coumadin Atrial fibrillation Seizure disorder Obstructive sleep apnea HIV Bipolar disorder Plans: Albuterol neb 4 times a day scheduled and as needed for shortness of breath and wheezing. Continue Symbicort. Continue Singulair. Continue Solu- Medrol 60 mg IV every 6 hours. O2 per NC to maintain O2 saturation greater than 92%. Follow pulmonology recommendations. Social work for nebulizer machine. [id number] glucose 275. Plans: Insulin drip. Regular Accu-Cheks. Hypoglycemic precautions. Diabetic diet. Follow A1c. CT of the brain shows no acute findings. Plans: Continue Coumadin dose per pharmacy to maintain INR 2-3. Continue aspirin and Plavix. Stable. Plans: Continue theophylline. Continue Coumadin dose per pharmacy to maintain INR 2-3. Stable. Plans: Resume Depakote. Plans: Proceed BiPAP at nighttime. Plans: Resume ritonavir, tenofovir. Needs adequate outpatient follow-up. Plans: Does not follow psychiatry on a regular basis. Follow psychiatry consultation. Needs adequate outpatient follow-up. DVT prophylaxis: [SCD, Coumadin] Discussed with: [Patient] Anticipated discharge: [1-2 days] Anticipated discharge place: [Home] A total of [30] minutes was spent on the care of this complex patient more than 50% of the time was spent in counseling and care coordination.
[2018-08-21 12:53] LABS: Glucose,Whole Blood 211 mg/dL (75-99)
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
[2018-08-21 15:11] LABS: Glucose,Whole Blood 409 mg/dL (75-99)
--- NOTE | 2018-08-21 15:59 | P.CN ---
Psychiatric Consult - . Consult date: 08/21/18 Consult:: 08/21/18 15:48 Identification: Patient is a 43-year-old male who presented to the emergency room with complaint of shortness of breath Reason for Consult: History of bipolar disorder History of Present Illness: Patient's chart was reviewed the patient was seen and interviewed in his room no family members were present. Patient states that he's been treated for bipolar disorder, patient is currently taking Depakote for both a seizure disorder and for his bipolar disorder per the patient. Patient's speech was quite pressured he was rambling and difficult to obtain history from. Patient states that he was in [facility] recently and at [facility] twice this year and is supposed to follow with [facility] but has not followed up and is unaware of what his medication should be other than Depakote. Patient states that in March was on Thorazine, Zyprexa and Effexor and has been on lithium in his teens. Patient's speech was pressured, he was tangential and then asked me to leave the room because I did not answer a question. Patient was unable to complete the interview, he asked me to leave because he was getting agitated because I had not answered a question that he had asked. Past Psychiatric History: Patient states he's been in [facility] twice this year was in [facility] recently and is to be followed by [facility] but doesn't go and is unsure of what his current psychiatric meds are. Patient is currently on Depakote and also has a seizure disorder. He states he was on lithium in the past. Past Medical/Surgical History: Per the chart the patient has asthma, DVT, atrial fibrillation, seizure disorder, status post pulmonary embolism, status post myocardial infarction, sleep apnea has had a pancreatic tumor and is status post chemotherapy and radiation therapy as well has a clotting disorder and is status post appendectomy. Family History: Unable to obtain Social History: Unable to obtain Substance Use History: Unable to obtain Legal History: Unable to obtain Mental status: Appearance/Attitude: Patient is sitting in a hospital bed, he constantly clicks a pen during the entire interview and taps his foot, patient makes eye contact and is superficially cooperative Behavior: Patient does not exhibit any psychomotor retardation, but is constantly moving his feet, clicking a pen during the interview and is easily agitated and irritable Speech/Language: Patient's speech is pressured, I was unable to redirect him verbally Thought Process: Patient exhibits racing thoughts Thought Content: Patient has exhibited paranoid ideation, stating that I didn't answer a question that he asked, and so he refused to continue speaking with me because he wasn't sure what my motives were and asked me to leave the room and ended the interview Suicidal/Homicidal Ideation: Unable to obtain Sensorium/Cognition: Patient is alert and oriented to person further cognitive testing was not able to be performed Mood/Affect: Patient's mood is irritable, guarded and his affect is appropriate to his mood Insight/Judgment: Unable to assess Assessment: Patient has a history of bipolar disorder and has recently been admitted twice to [facility] this year however the patient's unable to tell me any information regarding his admissions and states that he doesn't follow-up with care at [facility] after release from the hospital which is where he is supposed to be seen. Patient is currently on Depakote for seizure disorder and states also when he stay clean to control his bipolar disorder. Patient became upset during the interview stating that I hadn't answered a question, that he had not asked and asked me to leave the room and ended the interview. Patient has been taking Depakote 500 mg extended release 3 times a day, stating for his seizure disorder and his bipolar disorder however the patient has been complaining of shortness of breath and asthma and received treatments in an urgent care center and is currently on Solu-Medrol and it is unclear to me how well controlled his bipolar disorder is on Depakote alone as the Solu-Medrol can certainly cause a manic episode as well as paranoid ideation. I was not able to complete my evaluation of the patient as he became increasingly agitated during the interview and asked me to leave the room. Diagnosis: Bipolar disorder unspecified Plan: Would continue the Depakote 500 mg extended-release 3 times a day and consider decreasing his steroids as soon as is medically feasible, should patient become increasingly agitated or paranoid an antipsychotic may need to be used should he become agitated, threatening. At this time I will not write for any antipsychotic medication as the patient has been compliant with his medications. I will follow the patient to see if he is more amenable to being interviewed. Will order a Depakote level to check if his Depakote is within therapeutic range. I have no information regarding the patient's use of substances and/or alcohol and no drug screen is available for review. 08/21/18 15:55 08/21/18 15:57
[2018-08-21 16:45] LABS: Glucose,Whole Blood 340 mg/dL (75-99)
[2018-08-21] MEDS ORDERED: WARFARIN 5 MG TAB PO ONE (18:00)
[2018-08-21 19:05] LABS: Glucose,Whole Blood 341 mg/dL (75-99)
[2018-08-21] MEDS: MONTELUKAST 10 MG TAB PO SCH (20:29)
[2018-08-21 21:15] LABS: Glucose,Whole Blood 350 mg/dL (75-99)
[2018-08-21 23:06] LABS: Glucose,Whole Blood 353 mg/dL (75-99)
[2018-08-22] MEDS ORDERED: MORPHINE SULFATE 2 MG/ML SYRINGE IVP STA ×2 (00:42→13:23)
[2018-08-22 01:00] LABS: Glucose,Whole Blood 274 mg/dL (75-99)
[2018-08-22] MEDS ORDERED: MORPHINE SULFATE 4 MG/ML SYRINGE IVP STA (01:38)
[2018-08-22 03:03] LABS: Glucose,Whole Blood 237 mg/dL (75-99)
[2018-08-22 05:06] LABS: Glucose,Whole Blood 241 mg/dL (75-99)
[2018-08-22] MEDS: methylPREDNISolone SOD SUCCI 125 MG/2 ML VIAL IV SCH ×2 (05:12→11:43)
[2018-08-22 07:10] LABS: Glucose,Whole Blood 239 mg/dL (75-99)
[2018-08-22] MEDS: ALBUTEROL NEBULIZED 2.5 MG/3 ML INHALATION SCH ×3 (08:09→15:53)
[2018-08-22] MEDS: SYMBICORT 160-4.5 MCG INHALER INHALATION SCH (08:09)
[2018-08-22] MEDS: TENOFOVIR ALAFENAMIDE FUMARATE 25 MG PO SCH (08:50)
[2018-08-22] MEDS: RITONAVIR 100 MG TAB PO SCH (08:55)
[2018-08-22 09:02] LABS: Glucose,Whole Blood 416 mg/dL (75-99)
[2018-08-22] MEDS: LORATADINE 10 MG TAB PO SCH (09:05)
[2018-08-22] MEDS: DIVALPROEX ER 500 MG TAB.ER.24H PO SCH (09:05)
[2018-08-22] MEDS: DICYCLOMINE 10 MG CAP PO SCH (09:05)
[2018-08-22] MEDS: DOCUSATE 100 MG CAP PO SCH (09:05)
[2018-08-22] MEDS: CLOPIDOGREL 75 MG TAB PO SCH (09:05)
[2018-08-22] MEDS: MULTIVITAMINS, THERA 1 EACH TAB PO SCH (09:05)
[2018-08-22] MEDS: ASPIRIN 81 MG PO SCH (09:06)
[2018-08-22] MEDS: diphenhydrAMINE 25 MG CAP PO SCH (09:06)
[2018-08-22] MEDS: THEOPHYLLINE 24 HOUR 300 MG CAP.ER.24H PO SCH (09:06)
[2018-08-22 09:08] VITALS: RESP 16
[2018-08-22] MEDS: AMMONIUM LACTATE 12% LOTION 225 GM BTL TOPICAL SCH (09:08)
[2018-08-22 09:38] LABS: Glucose,Whole Blood 440 mg/dL (75-99)
[2018-08-22 11:14] LABS: Glucose,Whole Blood 278 mg/dL (75-99)
[2018-08-22 12:56] LABS: Glucose,Whole Blood 210 mg/dL (75-99)
[2018-08-22] MEDS ORDERED: ONDANSETRON 4 MG/2 ML VIAL IVP STA (13:26)
--- NOTE | 2018-08-22 13:29 | P.PN ---
Subjective Progress Note Date: 08/22/18 Principal diagnosis: Abdominal pain Patient was seen and examined. No acute events overnight. Patient reports abdominal pain that got exacerbated yesterday. Pain was left-sided, squeezing in nature, 10 out of 10 in severity. Patient reports having one episode of emesis, along with bowel movement. He denies any chest pain, shortness of breath or palpitations. No fever or chills. Objective - Vital Signs Vital signs: Vital Signs Temp 98.0 F 08/22/18 07:00 Pulse 88 08/22/18 11:21 Resp 16 08/22/18 07:00 BP 134/70 08/22/18 07:00 Pulse Ox 96 08/22/18 07:00 Intake & Output 08/21/18 08/22/18 08/22/18 18:59 06:59 18:59 Intake Total 920.500 552.140 741.360 Balance 920.500 552.140 741.360 Intake: Intake, IV Titration 90.500 72.140 39.360 Amount Insulin Regular 100 unit 90.500 72.140 39.360 In Sodium Chloride 0.9% 100 ml @ Titrate IV .Q0M [facility] Rx#:[id number] Oral [phone] Other: # Voids 3 2 - Exam General: [non toxic], [no distress], [appears at stated age] Derm: [warm], [dry] Head: [atraumatic], [normocephalic], [symmetric] Eyes: [EOMI], [no lid lag], [anicteric sclera] Mouth: [no lip lesion], [mucus membranes moist] Cardiovascular: [S1S2 reg], [no murmur], [positive DP pulse bilateral], Lungs: [Decreased breath sounds bilateral], [no rhonchi, no rales] , [no accessory muscle use] Abdominal: [soft], [tenderness to palpation left lower quadrant without rebound], [no guarding], [no appreciable organomegaly] Ext: [no gross muscle atrophy], [no edema], [no contractures] Neuro: [no focal neuro deficits] Psych: [Alert], [oriented], [appropriate affect] - Labs CBC & Chem 7: 08/19/18 17:25 08/19/18 17:25 Labs: Abnormal Lab Results - Last 24 Hours (Table) 08/20/18 08/21/18 08/21/18 Range/Units 06:40 15:10 16:43 POC Glucose (mg/dL) 409 H 340 H (75-99) mg/dL Hemoglobin A1c 8.0 H (4.0-6.0) % 08/21/18 08/21/18 08/21/18 Range/Units 19:01 21:14 23:04 POC Glucose (mg/dL) 341 H 350 H 353 H (75-99) mg/dL Hemoglobin A1c (4.0-6.0) % 08/22/18 08/22/18 08/22/18 Range/Units 00:58 03:02 05:04 POC Glucose (mg/dL) 274 H 237 H 241 H (75-99) mg/dL Hemoglobin A1c (4.0-6.0) % 08/22/18 08/22/18 08/22/18 Range/Units 07:03 09:00 09:36 POC Glucose (mg/dL) 239 H 416 H 440 H (75-99) mg/dL Hemoglobin A1c (4.0-6.0) % 08/22/18 08/22/18 Range/Units 11:12 12:55 POC Glucose (mg/dL) 278 H 210 H (75-99) mg/dL Hemoglobin A1c (4.0-6.0) % Assessment and Plan Assessment: Acute asthma exacerbation Abdominal pain Steroid-induced hyperglycemia with history of diabetes mellitus Factor V Leyden on Coumadin Atrial fibrillation Seizure disorder Obstructive sleep apnea HIV Bipolar disorder Plans: Albuterol neb 4 times a day scheduled and as needed for shortness of breath and wheezing. Continue Symbicort. Continue Singulair. Continue Solu- Medrol 60 mg IV every 6 hours. O2 per NC to maintain O2 saturation greater than 92%. Follow pulmonology recommendations. Social work for nebulizer machine. Concerns for obstruction given history of previous abdominal surgery. States he had bowel movement yesterday. Plans: Morphine onetime injection. Zofran as needed for nausea or vomiting. Follow KUB. Ksxin-bh-heky glucose 210. Plans: Insulin drip. Regular Accu-Cheks. Hypoglycemic precautions. Diabetic diet. Follow A1c. CT of the brain shows no acute findings. Plans: Continue Coumadin dose per pharmacy to maintain INR 2-3. Continue aspirin and Plavix. Stable. Plans: Continue theophylline. Continue Coumadin dose per pharmacy to maintain INR 2-3. Stable. Plans: Resume Depakote. Plans: Proceed BiPAP at nighttime. Plans: Resume ritonavir, tenofovir. Needs adequate outpatient follow-up. Plans: Does not follow psychiatry on a regular basis. Follow psychiatry consultation. Needs adequate outpatient follow-up. Asthma exacerbation is greatly improved. Patient complaining of abdominal pain, workup underway. DC later today if workup benign.
[2018-08-22] MEDS ORDERED: HYDROmorphone 0.5 MG/0.5 ML SYRINGE IVP STA (13:30)
[2018-08-22] MEDS: INSULIN REGULAR 100 UNIT in SODIUM CHLORIDE 0.9% 100 ML IV SCH (13:36)
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
[2018-08-22 14:17] VITALS: BP 114/71; TEMP 98.7
[2018-08-22 14:57] LABS: Glucose,Whole Blood 380 mg/dL (75-99)
[2018-08-22 16:03] VITALS: PULSE 96
--- NOTE | 2018-08-22 16:06 | P.PN ---
Progress Note - Text Progress Note Date: 08/22/18 I did not see the patient today is yesterday when I spoke with him he became quite agitated but he spoke with nursing staff who report that the patient has been compliant with most of his medications, he refused his IV steroids today due to his blood sugar being elevated. Patient refused to speak with me yesterday and asked me to leave the room. Patient has not had any episodes of agitation, assaultive behavior and so I will not see the patient today, patient may possibly be discharged today. There are any further questions or concerns please don't hesitate to reconsult me otherwise I will sign off the case.
[2018-08-22 16:12] LABS: Glucose,Whole Blood 379 mg/dL (75-99)
[2018-08-22] MEDS ORDERED: WARFARIN 0.5 MG TAB PO ONE (18:00)
== END 2018-08-22 16:55 | disposition home or self-care (01) | DRG 202 ==
LOC: EC 16:50 → 4SSUR 19:25
PROVIDERS: ADMIT Internal Medicine; ATTEND Internal Medicine
PROC: 5A09357 Assistance with Respiratory Ventilation, Less than 24 Consecutive Hours, Continuous Positive Airway Pressure (ICD-10-PCS; principal; 2018-08-19)
DX: J45.51 Severe persistent asthma with (acute) exacerbation (principal); J44.1 Chronic obstructive pulmonary disease with (acute) exacerbation; J98.11 Atelectasis; B19.10 Unspecified viral hepatitis B without hepatic coma; D68.51 Activated protein C resistance; D68.59 Other primary thrombophilia; B20 Human immunodeficiency virus [HIV] disease; Z87.891 Personal history of nicotine dependence; R09.02 Hypoxemia; D49.0 Neoplasm of unspecified behavior of digestive system; Z92.21 Personal history of antineoplastic chemotherapy; Z92.3 Personal history of irradiation; E11.65 Type 2 diabetes mellitus with hyperglycemia; T38.0X5A Adverse effect of glucocorticoids and synthetic analogues, initial encounter; E83.42 Hypomagnesemia; F31.9 Bipolar disorder, unspecified; F41.9 Anxiety disorder, unspecified; G40.909 Epilepsy, unspecified, not intractable, without status epilepticus; G47.33 Obstructive sleep apnea (adult) (pediatric); G89.4 Chronic pain syndrome; I25.2 Old myocardial infarction; I48.2 Chronic atrial fibrillation; I50.9 Heart failure, unspecified; Z91.81 History of falling; W10.9XXA Fall (on) (from) unspecified stairs and steps, initial encounter; S09.90XA Unspecified injury of head, initial encounter; Z79.01 Long term (current) use of anticoagulants; Z79.02 Long term (current) use of antithrombotics/antiplatelets; Z79.82 Long term (current) use of aspirin; Z79.899 Other long term (current) drug therapy; Z80.1 Family history of malignant neoplasm of trachea, bronchus and lung; Z82.49 Family history of ischemic heart disease and other diseases of the circulatory system; Z86.711 Personal history of pulmonary embolism; Z86.718 Personal history of other venous thrombosis and embolism; Z99.81 Dependence on supplemental oxygen; Z80.3 Family history of malignant neoplasm of breast; Z83.2 Family history of diseases of the blood and blood-forming organs and certain disorders involving the immune mechanism; A08.4 Viral intestinal infection, unspecified; Z88.5 Allergy status to narcotic agent; Z88.2 Allergy status to sulfonamides; Z88.8 Allergy status to other drugs, medicaments and biological substances; Z91.041 Radiographic dye allergy status; Z99.89 Dependence on other enabling machines and devices
CPT/HCPCS: 36415; 36600; 70450; 71046; 74018; 80048; 82805; 83036; 83735; 85025; 85610; 94640; 94645; 94660; 96365; 96366; 96375; 99285

== ENCOUNTER 2018-12-12 08:59 | Inpatient (IN) | payer OTHER ==
[2018-12-12] MEDS ORDERED: PANTOPRAZOLE 40 MG/10 ML VIAL IVP STA (09:26)
[2018-12-12] MEDS ORDERED: SODIUM CHLORIDE 0.9% 1,000 ML IV STA (09:26)
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
[2018-12-12 10:02] LABS: Basophils % (A) 1 %; Eosinophils # (A) 0.1 k/uL (0-0.7); Eosinophils % (A) 1 %; HCT 40.5 % (39.0-53.0); HGB 13.9 gm/dL (13.0-17.5); Lymphocytes # (A) 1.1 k/uL (1.0-4.8); Lymphocytes % (A) 18 %; MCH 27.2 pg (25.0-35.0); MCHC 34.3 g/dL (31.0-37.0); MCV 79.4 fL (80.0-100.0); Mean Platelet Volume 6.3; Monocytes # (A) 0.4 k/uL (0-1.0); Monocytes % (A) 7 %; Neutrophils # (A) 4.2 k/uL (1.3-7.7); Neutrophils % (A) 70 %; Platelet Count 257 k/uL (150-450); Poikilocytosis Moderate; RDW 15.2 % (11.5-15.5)
--- NOTE | 2018-12-12 10:03 | XR ---
EXAMINATION TYPE: XR chest 1V portable DATE OF EXAM: 12/12/2018 COMPARISON: Chest x-ray August 19, 2018. CT chest April 10, 2018 HISTORY: Pain after fall injury. TECHNIQUE: Single frontal view of the chest is obtained. FINDINGS: Improved inspiration on current study. There is no focal air space opacity, pleural effusio n, or pneumothorax seen. The cardiac silhouette size is within normal limits. The osseous structur es are intact. IMPRESSION: No acute cardiopulmonary process.
--- NOTE | 2018-12-12 10:04 | XR ---
EXAMINATION TYPE: XR pelvis AP view DATE OF EXAM: 12/12/2018 CLINICAL HISTORY: Fall injury with back pain. TECHNIQUE: A single AP view of the pelvis is obtained. COMPARISON: CT April 10, 2018. FINDINGS: There is no acute fracture/dislocation evident in the pelvis. The sacroiliac joints appea r symmetric and unremarkable. Symmetric mild superior joint space loss in both hips. Persistent serpi ginous sclerotic areas superior femoral heads consistent with bilateral avascular necrosis. No [place] fragmentation clearly seen. Scattered bilateral pelvic phleboliths. Rounded densities projecting [place] left proximal femur consistent with partial visualization of old posttraumatic healed fracture pugh btrochanteric level. IVC filter right L3 level redemonstrated. IMPRESSION: There is no new acute fracture or dislocation in the pelvis.
[2018-12-12 10:12] LABS: ALT 32 U/L (21-72); AST 26 U/L (17-59); African American GFR (CKD) >90 (>60 ml/min/1.73 sqM); Albumin 4.2 g/dL (3.5-5.0); Alcohol <10 mg/dL; Alkaline Phosphatase 72 U/L (38-126); Amylase 55 U/L (30-110); Anion Gap 8 mmol/L; Blood Urea Nitrogen 13 mg/dL (9-20); Carbon Dioxide 20 mmol/L (22-30); Chloride 112 mmol/L (98-107); Glucose 121 mg/dL (74-99); Sodium 140 mmol/L (137-145); Total Bilirubin 0.7 mg/dL (0.2-1.3); Total Protein 6.9 g/dL (6.3-8.2)
[2018-12-12 10:17] LABS: INR 1.1 (<1.2); Prothrombin Time 11.7 sec (9.0-12.0)
[2018-12-12 10:22] LABS: Creatine Kinase 71 U/L (55-170)
[2018-12-12] MEDS ORDERED: ONDANSETRON 4 MG/2 ML VIAL IVP STA (10:23)
[2018-12-12] MEDS ORDERED: MORPHINE SULFATE 4 MG/ML SYRINGE IV STA (10:23)
--- NOTE | 2018-12-12 10:25 | CT ---
EXAMINATION TYPE: CT brain wo con DATE OF EXAM: 12/12/2018 COMPARISON: 08/19/2018 HISTORY: Trauma, fall. Head pain. CT DLP: 1090.4 mGycm. Automated Exposure Control for Dose Reduction was Utilized. TECHNIQUE: CT scan of the head is performed without contrast. FINDINGS: There is no acute intracranial hemorrhage, mass effect, or midline shift identified. The ventricles and sulci are within normal limits in size. No suspicious extra-axial fluid collection. The globes are intact and the visualized sinuses are clear. Soft tissue contusion without hematoma is seen of the occiput scalp near the high vertex. IMPRESSION: 1. No acute intracranial hemorrhage, mass effect, or midline shift is seen. 2. Scalp contusion without well-formed hematoma of the soft tissues near the high vertex.
--- NOTE | 2018-12-12 10:31 | CT ---
EXAMINATION TYPE: CT lumbar spine wo con DATE OF EXAM: 12/12/2018 COMPARISON: CT 04/10/2018 HISTORY: Trauma, weakness, fall CT DLP: 842.1 mGycm Automated exposure control for dose reduction was used. An unenhanced CT of the lumbar spine was performed. Bone and soft tissue window settings are submitt ed as well as coronal and sagittal reconstructions. FINDINGS: Loss of disc height with vacuum phenomenon L5-S1 is again noted, is endplate sclerosis consistent wit h degenerative disc disease, associated spondylosis. Lumbar vertebral bodies show stable height, alig nment, bone mineralization. Inferior vena cava filter is noted incidentally, structures are noted ext raluminally of questionable clinical significance. Lumbar vertebral bodies are intact. Diverticular c hanges noted incidentally in the sigmoid colon level. L1-L2: Normal disc space height. No disc herniation protrusion or central stenosis. No facet joint arthropathy. No evidence for foraminal encroachment. L2-L3: Normal disc space height. No disc herniation protrusion or central stenosis. No facet joint arthropathy. No evidence for foraminal encroachment. L3-L4: Normal disc space height. No disc herniation protrusion or central stenosis. No facet joint arthropathy. No evidence for foraminal encroachment. L4-L5: Minimal posterior broad-based disc bulge causes only slight contact the anterior thecal sac. N o significant spinal stenosis or foraminal encroachment. L5-S1: Small right posterior paracentral disc herniation causes anterolateral mass effect on the thec al sac and likely contact with the proximal right S1 nerve root. No significant spinal stenosis. Diff erential extension endplate disc complex encroaches on the neural foramina. IMPRESSION: Mild degenerative disc disease. No acute fracture or subluxation. Inferior vena cava filter as descri bed.
[2018-12-12 10:35] LABS: Creatine Kinase MB <0.2 ng/mL (0.0-2.4); Troponin I <0.012 ng/mL (0.000-0.034)
[2018-12-12 10:54] LABS: Partial Thromboplastin Time 19.5 sec (22.0-30.0)
[2018-12-12 11:10] LABS: Appearance,Urine Clear (Clear); Bilirubin,Urine Negative (Negative); Blood,Urine Negative (Negative); Color,Urine Yellow; Glucose,Urine (UA) Negative (Negative); Ketones,Urine Negative (Negative); Leukocyte Esterase,Urine Negative (Negative); Nitrite,Urine Negative (Negative); PH, Urine 5.5 (5.0-8.0); Protein,Urine Trace (Negative); Specific Gravity,Urine 1.025 (1.001-1.035); Urobilinogen,Urine <2.0 mg/dL (<2.0)
[2018-12-12] MEDS ORDERED: NALOXONE 0.4 MG/ML 1 ML VIAL IV PRN (11:12)
[2018-12-12] MEDS ORDERED: SODIUM CHLORIDE 0.9% 1,000 ML IV SCH (11:15)
[2018-12-12 11:24] LABS: Amphetamine Screen,Urine Not Detected (NotDetected); Barbiturate Screen,Urine Not Detected (NotDetected); Benzodiazepines Screen,Urine Not Detected (NotDetected); Cocaine Screen,Urine Detected (NotDetected); Methadone Screen, Urine Not Detected (NotDetected); Opiate Screen,Urine Not Detected (NotDetected); Oxycodone Screen, Urine Not Detected (NotDetected); Phencyclidine Screen,Urine Not Detected (NotDetected); Tricyclic Antidepressant,Urine Not Detected (NotDetected); Urn Cannabinoid Scrn Not Detected (NotDetected)
[2018-12-12] MEDS: PANTOPRAZOLE 40 MG/10 ML VIAL IV SCH (11:25)
[2018-12-12] MEDS: ONDANSETRON 4 MG/2 ML VIAL IVP PRN ×2 (13:21→22:46)
[2018-12-12] MEDS: MORPHINE SULFATE 4 MG/ML SYRINGE IV PRN ×2 (13:25→16:34)
[2018-12-12] MEDS ORDERED: PEG 3350-NA SULF,BICARB,CL/KCL 4,000 ML BOTTLE PO ONE (13:36)
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
[2018-12-12] MEDS ORDERED: ALBUTEROL NEBULIZED 2.5 MG/3 ML INHALATION PRN (16:01)
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
[2018-12-12] MEDS: SODIUM CHLORIDE 0.9% 1,000 ML IV SCH (17:36)
[2018-12-12] MEDS: HYDROmorphone 0.5 MG/0.5 ML SYRINGE IVP PRN ×2 (19:13→22:46)
[2018-12-12] MEDS: METOCLOPRAMIDE 5 MG/ML 2 ML VIAL IVP PRN (19:14)
[2018-12-12] MEDS ORDERED: SYMBYAX PO SCH (21:00)
[2018-12-13] MEDS: HYDROmorphone 0.5 MG/0.5 ML SYRINGE IVP PRN ×7 (02:34→23:17)
[2018-12-13] MEDS: SODIUM CHLORIDE 0.9% 1,000 ML IV SCH ×3 (03:20→19:21)
[2018-12-13] MEDS ORDERED: TENOFOVIR DISOPROXIL FUMARATE 300 MG PO SCH (09:00)
[2018-12-13] MEDS: PANTOPRAZOLE 40 MG/10 ML VIAL IV SCH (09:15)
[2018-12-13] MEDS: LORATADINE 10 MG TAB PO SCH (09:15)
[2018-12-13 09:19] LABS: Basophils % (A) 0 %; Eosinophils # (A) 0.1 k/uL (0-0.7); Eosinophils % (A) 2 %; HCT 39.2 % (39.0-53.0); HGB 13.3 gm/dL (13.0-17.5); Hypochromasia Slight; Lymphocytes # (A) 0.9 k/uL (1.0-4.8); Lymphocytes % (A) 20 %; MCV 79.3 fL (80.0-100.0); Mean Platelet Volume 6.3; Monocytes # (A) 0.3 k/uL (0-1.0); Monocytes % (A) 8 %; Neutrophils % (A) 67 %; Platelet Count 233 k/uL (150-450); Poikilocytosis Moderate; RBC 4.94 m/uL (4.30-5.90); RDW 14.9 % (11.5-15.5); WBC 4.4 k/uL (3.8-10.6)
[2018-12-13] MEDS: EMTRICITABINE/TENOFOVIR 200MG/300MG PO SCH (09:20)
[2018-12-13] MEDS: THEOPHYLLINE 24 HOUR 300 MG CAP.ER.24H PO SCH (10:00)
[2018-12-13] MEDS: ONDANSETRON 4 MG/2 ML VIAL IVP PRN ×2 (10:05→16:29)
[2018-12-13 10:59] VITALS: BMI 30.4
[2018-12-13] MEDS: ATORVASTATIN 80 MG TAB PO SCH (11:10)
[2018-12-13] MEDS: diphenhydrAMINE 25 MG CAP PO SCH ×4 (11:10→23:23)
[2018-12-13] MEDS: MULTIVITAMINS, THERA 1 EACH TAB PO SCH (11:13)
[2018-12-13] MEDS ORDERED: PROPOFOL 10 MG/ML 20 ML VIAL IV ONE (11:18)
[2018-12-13] MEDS ORDERED: fentaNYL (PF) 50 MCG/ML 2 ML AMP ONE (11:18)
[2018-12-13] MEDS ORDERED: MIDAZOLAM 2 MG/2 ML VIAL ONE (11:18)
[2018-12-13] MEDS ORDERED: diphenhydrAMINE 50 MG/ML 1 ML VIAL ONE (11:18)
[2018-12-13] MEDS ORDERED: SODIUM CHLORIDE 0.9% 500 ML 500 ML IV ONE (11:25)
--- NOTE | 2018-12-13 11:45 | P.OP ---
Date of Procedure: 12/13/18 Preoperative Diagnosis: GI bleed Postoperative Diagnosis: Mild antral gastritis External hemorrhoids Procedure(s) Performed: EGD Colonoscopy Anesthesia: MAC Surgeon: Rambo Baca Pathology: other (Antrum) Condition: stable Disposition: PACU Description of Procedure: The patient's placed on the endoscopy table lateral position. He received IV sedation. The gastric was placed oropharynx and passed in the esophagus and stomach. Scope was then placed through the pylorus. The first and second port ion of duodenum appeared normal. Scope was then brought back the antrum was mildly inflamed. A biopsies performed. Scope was unretroflexed and remainder of the stomach appeared normal. The GE junction was at 47 is. The distal esophagus appeared normal. The proximal esophagus.. There is no evidence of upper GI bleed. Scope was withdrawn for patient. Next digital rectal exam was performed which revealed external hemorrhoids. Flexible colonoscope was then placed patient anus passed throughout the entire colon. The ileocecal valve sutures. The cecum, ascending and transverse colon appeared normal. The descending and; appeared normal. Scope was then brought back the rectum and this was normal. Scope was brought back through the anus and external hemorrhoids are noted. There is no incision any active GI bleed. It was presumed that his rectal bleeding was due to his external hemorrhoids.
[2018-12-14] MEDS: HYDROmorphone 0.5 MG/0.5 ML SYRINGE IVP PRN ×8 (02:03→23:57)
[2018-12-14] MEDS: ONDANSETRON 4 MG/2 ML VIAL IVP PRN ×3 (02:11→17:48)
[2018-12-14] MEDS ORDERED: HEPARIN SODIUM,PORCINE 5,000 UNIT/ML 1 ML VIAL IV ONE (08:10)
[2018-12-14] MEDS: LORATADINE 10 MG TAB PO SCH (08:26)
[2018-12-14] MEDS: PANTOPRAZOLE 40 MG/10 ML VIAL IV SCH (08:26)
[2018-12-14] MEDS: THEOPHYLLINE 24 HOUR 300 MG CAP.ER.24H PO SCH (08:26)
[2018-12-14] MEDS: MULTIVITAMINS, THERA 1 EACH TAB PO SCH (08:26)
[2018-12-14] MEDS: diphenhydrAMINE 25 MG CAP PO SCH ×3 (08:26→21:03)
[2018-12-14] MEDS: ATORVASTATIN 80 MG TAB PO SCH (08:26)
[2018-12-14] MEDS: SODIUM CHLORIDE 0.9% 1,000 ML IV SCH ×2 (08:28→16:48)
[2018-12-14] MEDS: EMTRICITABINE/TENOFOVIR 200MG/300MG PO SCH (08:28)
--- NOTE | 2018-12-14 08:46 | P.PN ---
Subjective Progress Note Date: 12/14/18 Principal diagnosis: Lower and upper GI bleed is an episode Doubt hemoptysis History of DVT PE and factor V Leyden deficiency, on anticoagulation with Coumadin Chronic paroxysmal atrial fibrillation COPD stable not in exacerbation Generalized weakness Near syncopal episode due to above 12/14/2018,, patient seen eval examined during the rounds labs reviewed medications reviewed, he is status post endoscopy upper and lower no significant source of bleeding has been identified, patient has some hemorrhoids bleeding have his stopped now, patient can be resumed on Coumadin was restarted, patient will be started on heparin drip to bridge because of his concern with recurrent DVT PE once INR in therapeutic range somewhere around 2 he can be discharged Patient is a pleasant 43-year-old male, while he was in [place] at [facility] he has a near syncopal episode probably lost his consciousness from 1-2 minutes bumped his head he refused to go to the emergency department for further evaluation he was and Route to [place] over here he had hematochezia and met eventualpalak y presented to the emergency Department with several complaints. Patient's main complaint is rectal bleeding. Patient has had 2 episodes today of gross blood when he thought he was going to have a bowel movement. Patient does feel somewhat generally weak and short of breath, especially with exertion. Patient does have history of COPD which appears to be stable. Patient adds that he had one episode today where he did cough up a little bit of blood streaked with his sputum not clear if he is describing hematemesis. Patient states he did also strike his lower back when he fell. Patient denies any confusion or speech problems. No upper shoulder problems. No history of previous back problems or leg weakness. Patient does have history of pancreatic and: Tumors. Patient is on Coumadin for recurrent DVT and PE. Objective - Vital Signs Vital signs: Vital Signs Temp 98.2 F 12/14/18 08:14 Pulse 68 12/14/18 08:14 Resp 14 12/14/18 08:14 BP 143/87 12/14/18 08:14 Pulse Ox 98 12/14/18 08:14 Intake & Output 12/13/18 12/14/18 12/14/18 18:59 06:59 18:59 Intake Total 1000 1000 Output Total 400 300 Balance 600 700 Weight 90.718 kg Intake: IV 1000 Sodium Chloride 0.9% 1, 800 000 ml @ 100 mls/hr IV . Q10H JOANNE Rx#:[id number] Oral 1000 Output: Urine 400 300 Other: # Voids 2 - Exam - Constitutional General appearance: average body habitus, cooperative, disheveled - EENT Eyes: anicteric sclerae, EOMI, PERRLA, dentition normal, normal appearance ENT: normal oropharynx Ears: bilateral: normal - Neck Neck: normal ROM Carotids: bilateral: upstroke normal Thyroid: bilateral: normal size - Respiratory Respiratory: bilateral: CTA - Cardiovascular Rhythm: regular Heart sounds: normal: S1, S2 - Gastrointestinal General gastrointestinal: normal bowel sounds, soft - Neurologic Neurologic: CNII-XII intact - Musculoskeletal Musculoskeletal: gait normal, generalized weakness, strength equal bilaterally - Psychiatric Psychiatric: A&O x's 3, appropriate affect, intact judgment & insight - Labs CBC & Chem 7: 12/13/18 08:46 12/12/18 09:49 Labs: Abnormal Lab Results - Last 24 Hours (Table) 12/13/18 Range/Units 08:46 MCV 79.3 L (80.0-100.0) fL Lymphocytes # 0.9 L (1.0-4.8) k/uL Assessment and Plan Assessment: Lower and upper GI bleed is an episode resolved now no evidence of active Doubt hemoptysis History of DVT PE and factor V Leyden deficiency, on anticoagulation with Coumadin Chronic paroxysmal atrial fibrillation COPD stable not in exacerbation Generalized weakness Near syncopal episode due to above HIV status Plan: Start heparin drip resumed Coumadin once INR is around 2 patient can be discharged home Monitor hemoglobin closely Gentle rehydration Status post upper and lower endoscopy with findings as noted above Agree with bronchodilator as needed Further management and plan of care as per clinical response of the patient Time with Patient: Greater than 30
[2018-12-14 09:02] LABS: Basophils # (A) 0.1 k/uL (0-0.2); Basophils % (A) 1 %; Eosinophils # (A) 0.1 k/uL (0-0.7); Eosinophils % (A) 2 %; HCT 37.8 % (39.0-53.0); HGB 12.5 gm/dL (13.0-17.5); Lymphocytes % (A) 23 %; MCH 26.5 pg (25.0-35.0); MCV 80.3 fL (80.0-100.0); Monocytes # (A) 0.4 k/uL (0-1.0); Monocytes % (A) 9 %; Neutrophils # (A) 2.8 k/uL (1.3-7.7); Neutrophils % (A) 63 %; Platelet Count 258 k/uL (150-450); Poikilocytosis Moderate; RBC 4.71 m/uL (4.30-5.90); RDW 15.2 % (11.5-15.5); WBC 4.4 k/uL (3.8-10.6)
[2018-12-14] MEDS: HEPARIN SOD,PORK IN 0.45% NACL 25,000 UNIT in 0.45% NACL 1 250ML.BAG IV SCH (09:28)
[2018-12-14] MEDS: RITONAVIR 100 MG TAB PO SCH (12:25)
--- NOTE | 2018-12-14 14:13 | P.PN ---
Subjective Progress Note Date: 12/14/18 CHIEF COMPLAINT: Rectal bleeding HISTORY OF PRESENT ILLNESS: Patient is status post EGD and colonoscopy revealing mild antral gastritis and extra hemorrhoids. Patient denies any further episodes of rectal bleeding. Hemoglobin 12.5. Patient's vital signs are st able. He is afebrile. Tolerating diet. PHYSICAL EXAM: VITAL SIGNS: Reviewed. GENERAL: Well-developed in no acute distress. HEENT: No sclera icterus. Extraocular movements grossly intact. Moist buccal mucosa. Head is atraumatic, normocephalic. ABDOMEN: Soft. Nondistended. Nontender. NEUROLOGIC: Alert and oriented. Cranial nerves II through XII grossly intact. ASSESSMENT: 1. Rectal bleeding 2. Recent fall from standing, imaging negative for fractures, CT brain reveals scalp contusion 3. Positive toxicology screen, + for cocaine 4. History of DVT, PE and factor V Leyden deficiency, on anticoagulation with Coumadin, INR subtherapeutic on admission 5. History of HIV PLAN: Continue diet as tolerated Patient is stable for discharge from a surgical standpoint when cleared by admitting physician Nurse practitioner note has been reviewed by physician. Signing provider agrees with the documented findings, assessment, and plan of care. Objective - Vital Signs Vital signs: Vital Signs Temp 97.4 F L 12/14/18 12:14 Pulse 84 12/14/18 12:14 Resp 14 12/14/18 12:14 BP 122/75 12/14/18 12:14 Pulse Ox 99 12/14/18 12:14 Intake & Output 12/13/18 12/14/18 12/14/18 18:59 06:59 18:59 Intake Total 1000 1000 Output Total 400 300 Balance 600 700 Weight 90.718 kg Intake: IV 1000 Sodium Chloride 0.9% 1, 800 000 ml @ 100 mls/hr IV . Q10H JOANNE Rx#:[id number] Oral 1000 Output: Urine 400 300 Other: # Voids 2 2 - Labs CBC & Chem 7: 12/14/18 08:49 12/12/18 09:49 Labs: Abnormal Lab Results - Last 24 Hours (Table) 12/14/18 Range/Units 08:49 Hgb 12.5 L (13.0-17.5) gm/dL Hct 37.8 L (39.0-53.0) %
[2018-12-14 17:03] LABS: INR 1.1 (<1.2); Partial Thromboplastin Time 37.2 sec (22.0-30.0); Prothrombin Time 11.3 sec (9.0-12.0)
[2018-12-14] MEDS: HEPARIN SODIUM,PORCINE 5,000 UNIT/ML 1 ML VIAL IV PRN (17:48)
[2018-12-14] MEDS ORDERED: WARFARIN 5 MG TAB PO SCH (18:00)
[2018-12-15] MEDS: METOCLOPRAMIDE 5 MG/ML 2 ML VIAL IVP PRN ×3 (00:02→15:16)
[2018-12-15] MEDS: HYDROmorphone 0.5 MG/0.5 ML SYRINGE IVP PRN ×7 (03:04→23:32)
[2018-12-15] MEDS: ONDANSETRON 4 MG/2 ML VIAL IVP PRN ×2 (03:05→12:12)
[2018-12-15] MEDS: SODIUM CHLORIDE 0.9% 1,000 ML IV SCH ×3 (04:19→14:19)
[2018-12-15] MEDS: EMTRICITABINE/TENOFOVIR 200MG/300MG PO SCH (07:11)
[2018-12-15 08:20] LABS: INR 1.1 (<1.2); Prothrombin Time 11.3 sec (9.0-12.0)
[2018-12-15 08:30] LABS: Basophils # (A) 0.2 k/uL (0-0.2); Basophils % (A) 3 %; Eosinophils # (A) 0.1 k/uL (0-0.7); Eosinophils % (A) 1 %; HCT 39.6 % (39.0-53.0); HGB 13.7 gm/dL (13.0-17.5); Hyperchromasia Slight; Lymphocytes # (A) 0.9 k/uL (1.0-4.8); Lymphocytes % (A) 15 %; MCH 27.1 pg (25.0-35.0); MCHC 34.5 g/dL (31.0-37.0); MCV 78.4 fL (80.0-100.0); Mean Platelet Volume 7.6; Monocytes # (A) 0.3 k/uL (0-1.0); Monocytes % (A) 5 %; Neutrophils # (A) 4.4 k/uL (1.3-7.7); Neutrophils % (A) 73 %; Platelet Count 250 k/uL (150-450); Poikilocytosis Moderate; RBC 5.05 m/uL (4.30-5.90); RDW 14.9 % (11.5-15.5)
[2018-12-15] MEDS: THEOPHYLLINE 24 HOUR 300 MG CAP.ER.24H PO SCH (09:11)
[2018-12-15] MEDS: diphenhydrAMINE 25 MG CAP PO SCH ×3 (09:11→20:35)
[2018-12-15] MEDS: MULTIVITAMINS, THERA 1 EACH TAB PO SCH (09:11)
[2018-12-15] MEDS: LORATADINE 10 MG TAB PO SCH (09:11)
[2018-12-15] MEDS: ATORVASTATIN 80 MG TAB PO SCH ×2 (09:12→09:14)
[2018-12-15] MEDS: PANTOPRAZOLE 40 MG/10 ML VIAL IV SCH (09:12)
[2018-12-15] MEDS: HEPARIN SOD,PORK IN 0.45% NACL 25,000 UNIT in 0.45% NACL 1 250ML.BAG IV SCH (10:00)
[2018-12-15] MEDS: HEPARIN SODIUM,PORCINE 5,000 UNIT/ML 1 ML VIAL IV PRN (12:13)
--- NOTE | 2018-12-15 15:06 | P.PN ---
Subjective Progress Note Date: 12/15/18 Principal diagnosis: Lower and upper GI bleed is an episode Doubt hemoptysis History of DVT PE and factor V Leyden deficiency, on anticoagulation with Coumadin Chronic paroxysmal atrial fibrillation COPD stable not in exacerbation Generalized weakness Near syncopal episode due to above 12/15/2018, patient seen and evaluated examined during the rounds labs reviewed medications reviewed patient has been heparin doing well have multiple pain related problem issues has been getting more Dilaudid every 3 hour denies any chest pain or shortness of breath 12/14/2018,, patient seen eval examined during the rounds labs reviewed medications reviewed, he is status post endoscopy upper and lower no significant source of bleeding has been identified, patient has some hemorrhoids bleeding have his stopped now, patient can be resumed on Coumadin was restarted, patient will be started on heparin drip to bridge because of his concern with recurrent DVT PE once INR in therapeutic range somewhere around 2 he can be discharged Patient is a pleasant 43-year-old male, while he was in [place] at [facility] he has a near syncopal episode probably lost his consciousness from 1-2 minutes bumped his head he refused to go to the emergency department for further evaluation he was and Route to [place] over here he had hematochezia and met Mrs. eventually presented to the emergency Department with several complaints. Patient's main complaint is rectal bleeding. Patient has had 2 episodes today of gross blood when he thought he was going to have a bowel movement. Patient does feel somewhat generally weak and short of breath, especially with exertion. Patient does have history of COPD which appears to be stable. Patient adds that he had one episode today where he did cough up a little bit of blood streaked with his sputum not clear if he is describing hematemesis. Patient states he did also strike his lower back when he fell. Patient denies any confusion or speech problems. No upper shoulder problems. No history of previous back problems or leg weakness. Patient does have history of pancreatic and: Tumors. Patient is on Coumadin for recurrent DVT and PE. Objective - Vital Signs Vital signs: Vital Signs Temp 98.4 F 12/15/18 05:00 Pulse 94 12/15/18 05:00 Resp 18 12/15/18 05:00 BP 103/68 12/15/18 05:00 Pulse Ox 97 12/15/18 05:00 Intake & Output 12/14/18 12/15/18 12/15/18 18:59 06:59 18:59 Intake Total 78.667 671.333 23.742 Balance 78.667 671.333 23.742 Weight 90.718 kg Intake: Intake, IV Titration 78.667 171.333 23.742 Amount Heparin Sod,Pork in 0.45% 78.667 171.333 23.742 NaCl 25,000 unit In 0.45 % NaCl 1 250ml.bag @ 11. 023 UNITS/KG/HR 10 mls/hr IV .Q24H JOANNE Rx#: [id number] Oral 500 Other: Voiding Method Urinal # Voids 1 2 2 # Bowel Movements 0 - Exam - Constitutional General appearance: average body habitus, cooperative, disheveled - EENT Eyes: anicteric sclerae, EOMI, PERRLA, dentition normal, normal appearance ENT: normal oropharynx Ears: bilateral: normal - Neck Neck: normal ROM Carotids: bilateral: upstroke normal Thyroid: bilateral: normal size - Respiratory Respiratory: bilateral: CTA - Cardiovascular Rhythm: regular Heart sounds: normal: S1, S2 - Gastrointestinal General gastrointestinal: normal bowel sounds, soft - Neurologic Neurologic: CNII-XII intact - Musculoskeletal Musculoskeletal: gait normal, generalized weakness, strength equal bilaterally - Psychiatric Psychiatric: A&O x's 3, appropriate affect, intact judgment & insight - Labs CBC & Chem 7: 12/15/18 07:51 12/12/18 09:49 Labs: Abnormal Lab Results - Last 24 Hours (Table) 12/14/18 12/15/18 12/15/18 Range/Units 16:01 01:12 07:51 MCV 78.4 L (80.0-100.0) fL Lymphocytes # 0.9 L (1.0-4.8) k/uL APTT 37.2 H 73.9 H (22.0-30.0) sec 12/15/18 Range/Units 11:06 MCV (80.0-100.0) fL Lymphocytes # (1.0-4.8) k/uL APTT 30.7 H (22.0-30.0) sec Assessment and Plan Assessment: Lower and upper GI bleed is an episode resolved now no evidence of active Doubt hemoptysis History of DVT PE and factor V Leyden deficiency, on anticoagulation with Coumadin Chronic paroxysmal atrial fibrillation COPD stable not in exacerbation Generalized weakness Near syncopal episode due to above HIV status Plan: Continue heparin drip resumed Coumadin once INR is around 2 patient can be discharged home Monitor hemoglobin closely Gentle rehydration Status post upper and lower endoscopy with findings as noted above Agree with bronchodilator as needed Further management and plan of care as per clinical response of the patient Time with Patient: Greater than 30
[2018-12-15] MEDS ORDERED: HYDROcodone/APAP 5-325MG 1 EACH TAB PO PRN (15:09)
[2018-12-15] MEDS ORDERED: ALBUTEROL NEBULIZED 2.5 MG/3 ML INHALATION PRN (15:15)
[2018-12-15 16:26] VITALS: RESP 16
[2018-12-15] MEDS: oxyCODONE-APAP 5-325MG 1 EACH TAB PO PRN (17:21)
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
[2018-12-15] MEDS ORDERED: WARFARIN 7.5 MG TAB PO ONE (18:00)
[2018-12-15] MEDS: SYMBICORT 80-4.5 MCG INHALER INHALATION SCH (20:11)
[2018-12-15] MEDS: ALPRAZolam 1 MG TAB PO SCH (20:35)
[2018-12-16] MEDS: oxyCODONE-APAP 5-325MG 1 EACH TAB PO PRN ×2 (00:43→10:42)
[2018-12-16] MEDS: HYDROmorphone 0.5 MG/0.5 ML SYRINGE IVP PRN ×4 (02:40→11:51)
[2018-12-16 04:27] LABS: Basophils # (A) 0.1 k/uL (0-0.2); Basophils % (A) 2 %; Eosinophils # (A) 0.1 k/uL (0-0.7); Eosinophils % (A) 3 %; Lymphocytes # (A) 0.9 k/uL (1.0-4.8); Lymphocytes % (A) 26 %; MCH 26.5 pg (25.0-35.0); MCHC 33.5 g/dL (31.0-37.0); MCV 79.1 fL (80.0-100.0); Mean Platelet Volume 7.4; Monocytes # (A) 0.3 k/uL (0-1.0); Monocytes % (A) 9 %; Neutrophils # (A) 2.1 k/uL (1.3-7.7); Neutrophils % (A) 59 %; Platelet Count 266 k/uL (150-450); Poikilocytosis Moderate; RBC 4.92 m/uL (4.30-5.90); RDW 14.9 % (11.5-15.5); WBC 3.6 k/uL (3.8-10.6)
[2018-12-16 04:28] LABS: INR 1.1 (<1.2); Partial Thromboplastin Time 69.4 sec (22.0-30.0)
[2018-12-16] MEDS: HEPARIN SOD,PORK IN 0.45% NACL 25,000 UNIT in 0.45% NACL 1 250ML.BAG IV SCH (05:02)
[2018-12-16 05:27] VITALS: BP 100/68; PULSE 84; TEMP 97.9
[2018-12-16] MEDS: SYMBICORT 80-4.5 MCG INHALER INHALATION SCH (07:16)
[2018-12-16] MEDS ORDERED: PANTOPRAZOLE 40 MG TABLET PO SCH (07:30)
[2018-12-16] MEDS: EMTRICITABINE/TENOFOVIR 200MG/300MG PO SCH (08:30)
[2018-12-16] MEDS: MULTIVITAMINS, THERA 1 EACH TAB PO SCH (08:44)
[2018-12-16] MEDS: ALPRAZolam 1 MG TAB PO SCH (08:44)
[2018-12-16] MEDS: diphenhydrAMINE 25 MG CAP PO SCH (08:44)
[2018-12-16] MEDS: THEOPHYLLINE 24 HOUR 300 MG CAP.ER.24H PO SCH (08:44)
[2018-12-16] MEDS: ATORVASTATIN 80 MG TAB PO SCH (08:45)
[2018-12-16] MEDS: LORATADINE 10 MG TAB PO SCH (08:54)
[2018-12-16] MEDS ORDERED: ASPIRIN 81 MG PO SCH (09:00)
[2018-12-16] MEDS ORDERED: CLOPIDOGREL 75 MG TAB PO SCH (09:00)
--- NOTE | 2018-12-16 11:56 | P.PN ---
Subjective this is a pleasant 43 years old male with past medical history of atrial fibrillation, heart failure, asthma, COPD, chest pain, DVT/PE times multiple secondary to factor V Leyden deficiency on anticoagulation, HIV, hepatitis P, pancreatic cancer in 2012 treated with chemo and radiotherapy. Chronic hypoxic respiratory failure on 3 L oxygen via nasal cannula, YOSSI on CPAP, multiple muscular skeletal pain in his hip and back. patient fellin the [employer] tract trained and he hit his head, he had hematoma the top of his head, also associated with some bleeding per rectum and pain in his legs back and migraine which looks chronic with exacerbations.patient has been evaluated by surgical team recommended no surgical intervention right now and to resume his anticoagulation while patient is currently is on heparin drip for bridging as he has subtherapeutic INR patient denies chest pain or dyspnea. No headache. No fever. No change in urine or bowel habits. He is much concerned about his pain medication, counseling is provided for the patient. Risks including but not limited to addiction, cardiopulmonary depression and/or are explained for him and he verbalized understanding. Review of systems CONSTITUTIONAL: No fever, no malaise, no fatigue. HEENT: No recent visual problems or hearing problems. Denied any sore throat. CARDIOVASCULAR: No orthopnea, PND, no palpitations, no syncope. PULMONARY: No shortness of breath, no cough, no hemoptysis. GASTROINTESTINAL: No diarrhea, no nausea, no vomiting, no abdominal pain. Normoactive bowel sounds. NEUROLOGICAL: No headaches, no weakness, no numbness. HEMATOLOGICAL: Denies any bleeding or petechiae. GENITOURINARY: Denies any burning micturition, frequency, or urgency. -MUSCULOSKELETAL/RHEUMATOLOGICAL: plans from back pain and pelvic pain ENDOCRINE: Denies any polyuria or polydipsia. Active Medications Generic Name Dose Route Start Last Admin Trade Name Freq PRN Reason Stop Dose Admin Albuterol Sulfate 2.5 mg 12/15/18 15:15 Ventolin Nebulized INHALATION RT-QID PRN Shortness Of Breath Alprazolam 2 mg 12/15/18 21:00 12/16/18 08:44 Xanax PO 2 mg BID JOANNE Administration Aspirin 81 mg 12/16/18 09:00 12/16/18 08:44 Aspirin PO 81 mg DAILY JOANNE Administration Atorvastatin Calcium 80 mg 12/13/18 10:45 12/16/18 08:45 Lipitor PO 80 mg DAILY JOANNE Administration Budesonide/Formoterol Fumarate 2 puff 12/15/18 20:00 12/16/18 07:16 Symbicort 80-4.5 Mcg Inhaler INHALATION 2 puff RT-BID JOANNE Administration Clopidogrel Bisulfate 75 mg 12/16/18 09:00 12/16/18 08:44 Plavix PO 75 mg DAILY JOANNE Administration Diphenhydramine HCl 50 mg 12/13/18 10:45 12/16/18 08:44 Benadryl PO 50 mg TID JOANNE Administration Emtricitabine/Tenofovir 1 each 12/13/18 09:00 12/16/18 08:30 Truvada 200 Mg-300 Mg Tablet PO Not Given DAILY [facility] Heparin Sodium (Porcine) 0 unit 12/14/18 08:10 12/15/18 12:13 Heparin IV 4,535 unit PER PROTOCOL PRN Administration Low PTT Protocol Hydromorphone HCl 0.5 mg 12/12/18 18:30 12/16/18 11:51 Dilaudid IVP 0.5 mg Q3HR PRN Administration Pain Heparin Sodium/Sodium Chloride 250 mls @ 10 mls/hr 12/14/18 08:30 12/16/18 05:02 25,000 unit/ Sodium Chloride IV 15.02 units/kg/hr .Q24H JOANNE 13.626 mls/hr Administration Protocol 11.023 UNITS/KG/HR Loratadine 10 mg 12/13/18 09:00 12/16/18 08:54 Claritin PO 10 mg DAILY JOANNE Administration Metoclopramide HCl 10 mg 12/12/18 18:02 12/15/18 15:16 Reglan IVP 10 mg Q6HR PRN Administration Nausea And Vomiting Miscellaneous Information 0 each 12/14/18 09:22 Coumadin Per Pharmacy MISCELLANE DIRECTED PRN ANTICOAG Multivitamins 1 each 12/13/18 10:45 12/16/18 08:44 Theragran PO 1 each DAILY [facility] Administration Naloxone HCl 0.2 mg 12/12/18 11:12 Narcan IV Q2M PRN Opioid Reversal Ondansetron HCl 4 mg 12/12/18 11:12 12/15/18 12:12 Zofran IVP 4 mg Q8HR PRN Administration Nausea And Vomiting Oxycodone/Acetaminophen 1 each 12/15/18 16:23 12/16/18 10:42 Percocet 5-325 PO 1 each Q6HR PRN Administration Pain Pantoprazole Sodium 40 mg 12/16/18 07:30 12/16/18 08:44 Protonix PO 40 mg AC-[id number] JONANE Administration Theophylline 300 mg 12/13/18 09:00 12/16/18 08:44 Heath-24 PO 300 mg DAILY JOANNE Administration Warfarin Sodium 7.5 mg 12/16/18 18:00 Coumadin PO 12/16/18 18:01 ONCE@1800 ONE Objective - Vital Signs Vital signs: Vital Signs Temp 97.9 F 12/16/18 05:10 Pulse 84 12/16/18 05:10 Resp 16 12/16/18 05:10 BP 100/68 12/16/18 05:10 Pulse Ox 96 12/16/18 05:10 Intake & Output 12/15/18 12/16/18 12/16/18 18:59 06:59 18:59 Intake Total 23.742 1026.258 400 Output Total 400 300 Balance -376.258 726.258 400 Intake: Intake, IV Titration 23.742 226.258 Amount Heparin Sod,Pork in 0.45% 23.742 226.258 NaCl 25,000 unit In 0.45 % NaCl 1 250ml.bag @ 11. 023 UNITS/KG/HR 10 mls/hr IV .Q24H JOANNE Rx#: [id number] Oral 800 400 Output: Urine 400 300 Other: Voiding Method Urinal Urinal # Voids 1 # Bowel Movements 0 - Exam GENERAL: The patient is alert and oriented x3, not in any acute distress. Well developed, well nourished. HEENT: Pupils are round and equally reacting to light. EOMI. No scleral icterus. No conjunctival pallor. Normocephalic, atraumatic. No pharyngeal erythema. No thyromegaly. CARDIOVASCULAR: S1 and S2 present. No murmurs, rubs, or gallops. PULMONARY: Chest is clear to auscultation, no wheezing or crackles. ABDOMEN: Soft, nontender, nondistended, normoactive bowel sounds. No palpable organomegaly. MUSCULOSKELETAL: No joint swelling or deformity. -EXTREMITIES: No cyanosis, clubbing, or pedal edema. left leg scar NEUROLOGICAL: Gross neurological examination did not reveal any focal deficits. SKIN: No rashes. no petechiae. - Labs CBC & Chem 7: 12/16/18 03:49 12/12/18 09:49 Labs: Abnormal Lab Results - Last 24 Hours (Table) 12/15/18 12/16/18 12/16/18 Range/Units 18:47 03:49 03:49 WBC 3.6 L (3.8-10.6) k/uL MCV 79.1 L (80.0-100.0) fL Lymphocytes # 0.9 L (1.0-4.8) k/uL APTT 81.5 H 69.4 H (22.0-30.0) sec Assessment and Plan Assessment: gastrointestinal bleed, possibly from external hemorrhoids : Gait dysfunction Fall and scalp contusion Weakness of the left leg, possible radiculopathy History of degenerative joint disease Atrial fibrillation History of asthma Chronic congestive heart failure Chronic obstructive pulmonary disease History of multiple DVT and PE secondary to factor V bleeding deficiency on anticoagulation History of seizure History of sleep apnea on CPAP chronic pelvic pain and left leg and spine pain Chronic hypoxic respiratory failure History of anxiety, bipolar depression positive cocaine in the urine drug screen Plan: this is a pleasant 43 years old male who presents with fall and GI bleed felt secondary to hemorrhoids. Follow recommendation from surgical and pulmonary team or following the patient closely.patient is counseled about cocaine, he denies using it and states that's contamination from his their friend. Patient is counseled with pain medication as above, will decrease Dilaudid slightly from every 3 hours to every 4 hours and discussed with the patient regarding this and he agrees. Continue with warfarin and heparin bridging. Continue with HIV medication. Labs and medication were reviewed.. Continue same treatment. Continue with symptomatic treatment. Resume home medication. Monitor lytes and vitals. DVT and GI prophylaxis. Further recommendations of the clinical course of the patient DVT prophylaxis:heparin GI Prophylaxis: Protonix PT/OT: Pending Prognosis is guarded
[2018-12-16] MEDS ORDERED: WARFARIN 7.5 MG TAB PO ONE (18:00)
[2018-12-16] MEDS ORDERED: WARFARIN 5 MG TAB PO SCH (18:00)
== END 2018-12-16 13:25 | disposition left against medical advice (07) | DRG 394 ==
LOC: EC 08:59 → SUPCPDRO 08:59 → 3NMEDONC 11:12 → 4MS4W 12:41 → OBSVTOIN 12-14 10:51
PROVIDERS: ADMIT Internal Medicine Sleep Medicine; ATTEND Internal Medicine Sleep Medicine
PROC: 0DB78ZX Excision of Stomach, Pylorus, Via Natural or Artificial Opening Endoscopic, Diagnostic (ICD-10-PCS; principal; 2018-12-13 08:25)
PROC: 0DJD8ZZ Inspection of Lower Intestinal Tract, Via Natural or Artificial Opening Endoscopic (ICD-10-PCS; 2018-12-13 08:25)
PROC: 05HY33Z Insertion of Infusion Device into Upper Vein, Percutaneous Approach (ICD-10-PCS; 2018-12-15)
DX: K64.4 Residual hemorrhoidal skin tags (principal); D68.51 Activated protein C resistance; J96.11 Chronic respiratory failure with hypoxia; B20 Human immunodeficiency virus [HIV] disease; B19.10 Unspecified viral hepatitis B without hepatic coma; G43.909 Migraine, unspecified, not intractable, without status migrainosus; F31.9 Bipolar disorder, unspecified; G40.909 Epilepsy, unspecified, not intractable, without status epilepticus; G47.33 Obstructive sleep apnea (adult) (pediatric); Z99.89 Dependence on other enabling machines and devices; G89.29 Other chronic pain; I25.2 Old myocardial infarction; Z86.718 Personal history of other venous thrombosis and embolism; Z86.711 Personal history of pulmonary embolism; Z79.01 Long term (current) use of anticoagulants; I48.0 Paroxysmal atrial fibrillation; I50.9 Heart failure, unspecified; J44.9 Chronic obstructive pulmonary disease, unspecified; K29.70 Gastritis, unspecified, without bleeding; S00.03XA Contusion of scalp, initial encounter; W01.0XXA Fall on same level from slipping, tripping and stumbling without subsequent striking against object, initial encounter; Z79.02 Long term (current) use of antithrombotics/antiplatelets; Z79.82 Long term (current) use of aspirin; Z79.899 Other long term (current) drug therapy; Z80.1 Family history of malignant neoplasm of trachea, bronchus and lung; Z82.49 Family history of ischemic heart disease and other diseases of the circulatory system; Z85.07 Personal history of malignant neoplasm of pancreas; Z86.14 Personal history of Methicillin resistant Staphylococcus aureus infection; Z87.891 Personal history of nicotine dependence; Z99.81 Dependence on supplemental oxygen; K76.9 Liver disease, unspecified; Z71.51 Drug abuse counseling and surveillance of drug abuser; M54.9 Dorsalgia, unspecified; R10.2 Pelvic and perineal pain; Z92.21 Personal history of antineoplastic chemotherapy; Z92.3 Personal history of irradiation; Z88.5 Allergy status to narcotic agent; Z88.2 Allergy status to sulfonamides; Z88.8 Allergy status to other drugs, medicaments and biological substances; Z91.041 Radiographic dye allergy status; R26.9 Unspecified abnormalities of gait and mobility; Z88.6 Allergy status to analgesic agent
CPT/HCPCS: 36410; 36415; 43239; 45378; 70450; 71045; 72131; 72170; 76937; 80053; 80306; 80320; 81003; 82150; 82272; 82550; 82553; 83605; 83690; 84484; 85025; 85610; 85730; 86850; 86900; 86901; 88305; 93005; 94640; 94760; 96374; 96375; 96376; 99285

== ENCOUNTER 2019-04-15 17:16 | Observation (INO) | payer OTHER ==
[2019-04-15] MEDS ORDERED: ALBUTEROL NEBULIZED 2.5 MG/3 ML INHALATION STA ×2 (17:29→20:16)
[2019-04-15] MEDS ORDERED: methylPREDNISolone SOD SUCCI 125 MG/2 ML VIAL IV STA (17:29)
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
--- NOTE | 2019-04-15 18:31 | XR ---
EXAMINATION TYPE: XR chest 1V portable DATE OF EXAM: 04/15/2019 COMPARISON: 12/12/2018 HISTORY: Difficulty breathing TECHNIQUE: FINDINGS: There is elevated right diaphragm. There is poor inspiration. There is no heart failure nor confluent pneumonic infiltrate. There are chest leads. Heart size is normal. IMPRESSION: Poor inspiration that is decreased compared to last exam. Mild elevation of the right shane phragm could relate to partial paralysis.
[2019-04-15 18:40] LABS: Anisocytosis Slight; Basophils % (A) 0 %; Eosinophils # (A) 0.1 k/uL (0-0.7); Eosinophils % (A) 1 %; HCT 33.2 % (39.0-53.0); HGB 10.5 gm/dL (13.0-17.5); Hypochromasia Moderate; Lymphocytes % (A) 20 %; MCH 22.9 pg (25.0-35.0); MCHC 31.8 g/dL (31.0-37.0); MCV 71.9 fL (80.0-100.0); Mean Platelet Volume 8.2; Microcytosis Moderate; Monocytes # (A) 0.2 k/uL (0-1.0); Monocytes % (A) 5 %; Neutrophils # (A) 3.4 k/uL (1.3-7.7); Neutrophils % (A) 71 %; Platelet Count 300 k/uL (150-450); Poikilocytosis Moderate; RBC 4.61 m/uL (4.30-5.90); RDW 16.7 % (11.5-15.5); WBC 4.8 k/uL (3.8-10.6)
[2019-04-15 18:50] LABS: ALT 15 U/L (4-49); AST 20 U/L (17-59); African American GFR (CKD) >90 (>60 ml/min/1.73 sqM); Albumin 3.9 g/dL (3.5-5.0); Alkaline Phosphatase 97 U/L (38-126); Anion Gap 8 mmol/L; Blood Urea Nitrogen 5 mg/dL (9-20); Calcium 9.1 mg/dL (8.4-10.2); Carbon Dioxide 22 mmol/L (22-30); Chloride 109 mmol/L (98-107); Glucose 171 mg/dL (74-99); Magnesium 1.6 mg/dL (1.6-2.3); Non-African American GFR(CKD) >90 (>60 ml/min/1.73 sqM); Potassium 3.4 mmol/L (3.5-5.1); Sodium 139 mmol/L (137-145); Total Bilirubin 0.5 mg/dL (0.2-1.3); Total Protein 6.6 g/dL (6.3-8.2)
[2019-04-15 18:56] LABS: Prothrombin Time 10.5 sec (9.0-12.0)
[2019-04-15 19:03] LABS: Partial Thromboplastin Time 19.2 sec (22.0-30.0)
[2019-04-15] MEDS ORDERED: FAMOTIDINE 20 MG/2 ML VIAL IV STA (19:08)
[2019-04-15] MEDS ORDERED: diphenhydrAMINE 50 MG/ML 1 ML VIAL IVP STA (19:08)
[2019-04-15] MEDS ORDERED: SODIUM CHLORIDE 0.9% 1,000 ML IV ONE (19:09)
[2019-04-15] MEDS ORDERED: HEPARIN SODIUM,PORCINE 5,000 UNIT/ML 1 ML VIAL IV PRN (19:48)
[2019-04-15] MEDS ORDERED: HEPARIN SODIUM,PORCINE 10,000 UNIT/ML 1 ML VIAL IV ONE (19:48)
[2019-04-15] MEDS ORDERED: MORPHINE SULFATE 4 MG/ML SYRINGE IVP STA (20:24)
[2019-04-15] MEDS: HEPARIN SOD,PORK IN 0.45% NACL 25,000 UNIT in 0.45% NACL 1 250ML.BAG IV SCH (20:26)
[2019-04-15] MEDS: ALBUTEROL NEBULIZED 2.5 MG/3 ML INHALATION PRN (22:56)
[2019-04-16] MEDS: MORPHINE SULFATE 2 MG/ML SYRINGE IVP PRN ×5 (00:01→15:30)
[2019-04-16 07:22] LABS: INR 1.1 (<1.2)
[2019-04-16 07:30] LABS: Anisocytosis Slight; Basophils % (A) 0 %; Eosinophils % (A) 0 %; HCT 35.2 % (39.0-53.0); HGB 10.4 gm/dL (13.0-17.5); Hypochromasia Marked; Lymphocytes # (A) 0.3 k/uL (1.0-4.8); Lymphocytes % (A) 5 %; MCH 22.2 pg (25.0-35.0); MCHC 29.5 g/dL (31.0-37.0); Mean Platelet Volume 6.7; Microcytosis Slight; Monocytes # (A) 0.1 k/uL (0-1.0); Monocytes % (A) 2 %; Neutrophils # (A) 5.9 k/uL (1.3-7.7); Neutrophils % (A) 92 %; Platelet Count 256 k/uL (150-450); Poikilocytosis Slight; RBC 4.69 m/uL (4.30-5.90); RDW 16.5 % (11.5-15.5); WBC 6.4 k/uL (3.8-10.6)
[2019-04-16] MEDS: methylPREDNISolone SOD SUCCI 125 MG/2 ML VIAL IV SCH ×5 (07:54→23:20)
[2019-04-16] MEDS: SYMBYAX PO SCH ×3 (07:54→22:25)
[2019-04-16] MEDS: PANTOPRAZOLE 40 MG TABLET PO SCH (08:32)
[2019-04-16] MEDS: MULTIVITAMINS, THERA 1 EACH TAB PO SCH (08:32)
[2019-04-16] MEDS: ATORVASTATIN 80 MG TAB PO SCH (08:32)
[2019-04-16] MEDS: ALBUTEROL NEBULIZED 2.5 MG/3 ML INHALATION PRN ×4 (09:08→20:02)
[2019-04-16] MEDS: RITONAVIR 100 MG TAB PO SCH (09:57)
[2019-04-16] MEDS: EPIZICOM PO SCH (09:57)
[2019-04-16] MEDS: TENOFOVIR PO SCH (09:57)
[2019-04-16] MEDS: EMTRICITABINE PO SCH (09:57)
[2019-04-16] MEDS: THEOPHYLLINE 24 HOUR 300 MG CAP.ER.24H PO SCH (11:05)
[2019-04-16] MEDS: CLOPIDOGREL 75 MG TAB PO SCH (11:05)
[2019-04-16] MEDS: HEPARIN SOD,PORK IN 0.45% NACL 25,000 UNIT in 0.45% NACL 1 250ML.BAG IV SCH (12:59)
[2019-04-16] MEDS ORDERED: diphenhydrAMINE 50 MG/ML 1 ML VIAL IVP ONE (14:38)
[2019-04-16] MEDS ORDERED: FAMOTIDINE 20 MG/2 ML VIAL IV ONE (14:38)
[2019-04-16] MEDS ORDERED: methylPREDNISolone SOD SUCCI 125 MG/2 ML VIAL IV ONE (14:38)
--- NOTE | 2019-04-16 16:44 | US ---
EXAMINATION TYPE: US venous doppler duplex UE BI DATE OF EXAM: 04/16/2019 COMPARISON: None. CLINICAL HISTORY: possible DVT. Pain bilateral arms, patient states bilateral DVT's upper arm from [facility] facility. Patient currently on Heparin. IV right neck SIDE PERFORMED: bilateral Right Arm: Unable to visualize right jugular vein due to IV in neck. appears to have DVT right axilla ry vein. superficial thrombus right basilic vein Left Arm: appears to be non-occlusive DVT left brachial vein. superficial thrombus left basilic vein Grayscale, color doppler, spectral doppler imaging performed of the deep veins of the bilateral upper extremities. IMPRESSION: Images show acute superficial thrombus in the bilateral basilic veins with incomplete com pressible right axillary vein consistent with acute DVT at this level as there is absent color flow. Additional partial occlusive acute DVT thought present in the left brachial vein where there is hyper echoic material filling the lumen and incomplete compression noted . A Yellow level critical message alert has been initiated for Burton Mcmahon MD via the [employer] Critical Results System on 04/16/2019 4:41 PM. This message alert has been sent to Burton Mcmahon MD v kvng the preferences provided by the clinician for the receipt of Radiology Critical Findings. Message ID [id number].
[2019-04-16] MEDS ORDERED: LIDOCAINE 4% CREAM 5 GM TUBE TOPICAL PRN (17:06)
[2019-04-16] MEDS ORDERED: diphenhydrAMINE 25 MG CAP PO PRN (18:02)
[2019-04-16] MEDS: MORPHINE SULFATE 4 MG/ML SYRINGE IVP PRN ×2 (18:17→23:21)
--- NOTE | 2019-04-16 18:33 | HP ---
HISTORY AND PHYSICAL DATE OF SERVICE: 04/16/2019 CHIEF COMPLAINT: Shortness of breath and bilateral leg pain and possible DVT. HISTORY OF PRESENT ILLNESS: This 44-year-old gentleman with a past medical history of multiple medical problems including atrial fibrillation, history of asthma, history of blood disorder, history of CHF, COPD, DVT, history of myocardial infarction, pulmonary embolus, seizure disorder, history of factor 5 Leiden deficiency, history of multiple DVTs in the bilateral legs, history of multiple PE, CHF, HIV, hepatitis B, history of pancreatic cancer treated with chemoradiation and his history of bilateral PE and thrombectomy in [facility] and multiple allergies to multiple anticoagulants, being followed by primary physician elsewhere also seeing Dr. Casey. Currently the patient was having some shortness of breath and bilateral arm pain. The patient went to an urgent care center and was found to have bilateral upper limb DVTs and the patient presented to [facility] a couple days later with complaints of shortness of breath. The patient apparently was off medications for last 3 days. The patient also has some cough which is nonproductive. Patient admitted for further evaluation treatment. There is no history of fever, rigors. No history of headache, loss of consciousness, seizures. PAST MEDICAL HISTORY: History of atrial fibrillation, history of asthma, history of COPD, CHF, history of pulmonary embolism, history of seizure disorder, history of factor V Leiden, history of multiple DVT, HIV, hepatitis B. HOME MEDICATIONS: 1. Thorazine 50 mg p.o. t.i.d. 2. Coumadin 5 mg p.o. daily. 3. Spiriva 1 puff daily. 4. Heath-24 300 mg. 5. Symbyax 12/25 mg p.o. b.i.d. 6. Crestor 40 mg p.o. daily. 7. Norvir 100 mg p.o. daily. 8. Trileptal 300 mg p.o. daily. 9. ( ). 10.Singulair 10 mg p.o. daily. 11.Lidocaine patch. 12.Atrovent 2 puffs q.6h p.r.n. 13.Iron sulfate 325 mg p.o. daily. 14.Pepcid 20 mg p.o. b.i.d. 15.Nexium 40 mg p.o. b.i.d. 16.Epzicom 300, 2 tablets p.o. daily. 17.Truvada 1 tablet p.o. daily. 18.Plavix 75 mg p.o. daily. 19.Ventolin 2.5 q.i.d. p.r.n. 20.Xanax 0 1 mg t.i.d. p.r.n. ALLERGIES: Multiple allergies including APIXABAN ( ), CELEXA PRODUCTS, FRAGMIN, LOVENOX, ( ) ARIXTRA, GRASS, POLLEN, HALDOL, ATARAX, MOTRIN, CONTRAST DYES, LANOLIN, SKELAXIN, ROBAXIN, PORK, SULFA ANTIBIOTICS, ULTRAM. FAMILY HISTORY: History of CAD, history of myocardial infarction in the family. SOCIAL HISTORY: History of smoking. No alcohol intake. REVIEW OF SYSTEMS: ENT No history of diminished hearing or vision. CARDIOVASCULAR As mentioned earlier. RESPIRATORY As mentioned earlier. GI No nausea, vomiting, or diarrhea. No dysuria. NERVOUS No numbness or weakness. ALLERGY/IMMUNOLOGY No asthma or hayfever. MUSCULOSKELETAL As mentioned earlier. HEMATOLOGY/ONCOLOGY Negative. ENDOCRINE No history of diabetes or hypothyroidism. SKIN Negative. CONSTITUTIONAL As mentioned earlier. PSYCHIATRY As mentioned earlier. PHYSICAL EXAM: Patient is alert, oriented x3. Pulse is 104, blood pressure 130/70, respirations 16, temperature 98.4, pulse ox 97% on room air. HEENT: Conjunctivae normal. Oral mucosa moist. NECK: No jugular venous distention. No lymph node enlargement. CARDIOVASCULAR: S1, S2. RESPIRATORY: Diminished breath sounds at the bases. A few rhonchi, no crackles. ABDOMEN: Soft, nontender. No mass palpable. LEGS: No edema, no swelling. NERVOUS SYSTEM: Higher functions mentioned earlier. Moves all four limbs. No focal deficits. LYMPHATICS: No lymph node in neck or axilla. SKIN: No rash. JOINTS: No active deforming arthropathy. Examination of the hand: Some tenderness present, local tenderness. LABS: At this time shows WBC 4.2, hemoglobin 10.5. Otherwise, platelets 300 and APTT 19, ( ) 64.3. Potassium 3.4 and creatinine 0.65. ASSESSMENT: 1. Shortness of breath, rule out acute pulmonary embolism. 2. Bilateral upper limb pains and evidence of acute superficial thrombosis in the bilateral basilic veins with right axilla vein acute deep venous thrombosis and left brachial vein acute deep venous thrombosis. 3. Microcytic anemia. 4. Hypokalemia. 5. Multiple allergies. 6. History of atrial fibrillation, paroxysmal. 7. History of asthma. 8. Chronic obstructive pulmonary disease acute exacerbation. 9. History of chest pain. 10.History of congestive heart failure. 11.History of deep vein thrombosis. 12.Liver disease. 13.History of migraine. 14.History of pulmonary embolus. 15.Seizure disorder. 16.History of sleep apnea. 17.History of factor V Leiden deficiency. 18.History of multiple deep venous thromboses. 19.History of multiple pulmonary embolisms. 20.History of HIV. 21.History of hepatitis B. 22.History of pancreatic cancer, apparently on chemo radiation. 23.History of chronic hypoxic respiratory failure. 24.History of MRSA. 25.History of appendectomy. 26.History of myxoma, removed. 27.History of nicotine dependence. RECOMMENDATIONS AND DISCUSSION: In this 44-year-old gentleman who presented with multiple complex medical issues, we will monitor the patient closely, continue the current management and symptomatic treatment. Continue the bronchodilators. Otherwise, resume the home medications. I would also recommend a CT angio with preparation because of the patient's allergies. Otherwise, we will consult Hematology/Oncology, and as well as Pulmonary. We will closely monitor. Otherwise, continue the telemetry. IV steroids are given. Optimize bronchodilators. Prognosis guarded because of multiple complex medical issues. Further recommendations to follow. MMODL / TANAN: [id number] /
[2019-04-16] MEDS ORDERED: HYDROmorphone 0.5 MG/0.5 ML SYRINGE IVP STA (21:30)
[2019-04-17] MEDS: ALBUTEROL NEBULIZED 2.5 MG/3 ML INHALATION PRN ×6 (00:01→21:28)
[2019-04-17] MEDS: MORPHINE SULFATE 4 MG/ML SYRINGE IVP PRN ×3 (03:20→12:17)
[2019-04-17] MEDS: HEPARIN SOD,PORK IN 0.45% NACL 25,000 UNIT in 0.45% NACL 1 250ML.BAG IV SCH ×2 (03:49→05:47)
[2019-04-17] MEDS: methylPREDNISolone SOD SUCCI 125 MG/2 ML VIAL IV SCH ×3 (05:48→17:45)
[2019-04-17 07:14] LABS: Anisocytosis Slight; Basophils % (A) 0 %; Eosinophils % (A) 0 %; HCT 30.1 % (39.0-53.0); HGB 9.2 gm/dL (13.0-17.5); Hypochromasia Marked; Lymphocytes # (A) 0.3 k/uL (1.0-4.8); Lymphocytes % (A) 3 %; MCH 22.3 pg (25.0-35.0); MCHC 30.5 g/dL (31.0-37.0); MCV 73.1 fL (80.0-100.0); Mean Platelet Volume 8.3; Microcytosis Moderate; Monocytes # (A) 0.3 k/uL (0-1.0); Monocytes % (A) 3 %; Neutrophils # (A) 10.1 k/uL (1.3-7.7); Neutrophils % (A) 94 %; Platelet Count 282 k/uL (150-450); Poikilocytosis Moderate; RBC 4.12 m/uL (4.30-5.90); RDW 16.6 % (11.5-15.5); WBC 10.8 k/uL (3.8-10.6)
[2019-04-17 07:19] LABS: Partial Thromboplastin Time 38.5 sec (22.0-30.0); Prothrombin Time 10.6 sec (9.0-12.0)
--- NOTE | 2019-04-17 07:47 | CONS ---
CONSULTATION Aubrey Dietz is a 44-year-old male who presented to the ED with shortness of breath. He also was having some chest pain and swelling of his left upper extremity. He said he was seen at an urgent care where a venous Doppler was done of his extremity. This showed apparently evidence of blood clots. Subsequent ultrasound done showed acute superficial thrombus in bilateral basilic veins with incomplete compressible right axillary vein consistent with an acute DVT. There was also a partial occlusive acute DVT in the left brachial vein as well. The patient has a known history of Factor V Leiden and has had recurrent DVTs. He also has a history of asthma with COPD and ran out of his inhalers as well as his Coumadin. He was started on heparin in the ER and admitted for further evaluation and management. PAST MEDICAL HISTORY: Positive for recurrent DVTs for which he had been on apixaban, but apparently ran out of it, history of atrial fibrillation, asthma, history of congestive heart failure, COPD, pancreatic cancer, obstructive sleep apnea with CPAP, HIV positivity, hepatitis B. REVIEW OF SYSTEMS: Noncontributory. SOCIAL HISTORY: Patient is an ex-smoker. Does not drink alcohol excessively. FAMILY HISTORY: Positive for coronary artery disease in his family. MEDICATIONS: Medications prior to admission were: Thorazine, Coumadin, Spiriva, Heath-24, Symbyax, Crestor, Norvir, Trileptal, multivitamin, montelukast, lidocaine cream, ipratropium, ferrous sulfate, Pepcid, esomeprazole, Epzicom, Truvada, Plavix, Ventolin, and Xanax. PHYSICAL EXAMINATION: On physical examination, he was lying in bed. He was anxious. He was tachycardic with a heart rate of 116, respiratory rate of 16, temperature 98.3, blood pressure 140/82, O2 saturation on room air is 97%. HEENT reveals pupils are equal. No jugular venous distention. Chest reveals decreased breath sounds. No clear wheeze. Cardiovascular system reveals an S1, S2. Abdomen is soft. There is no pedal edema. Chest x-ray shows mild elevation of the right hemidiaphragm. Venous Doppler showed evidence of bilateral basilic vein superficial thrombus along with right axillary vein incomplete venous thrombosis and partial occlusive acute DVT in the left brachial vein as well. LABS: Labs reveal a white count of 6.4, hemoglobin of 10.4. IMPRESSION AT THIS TIME: 1. Upper extremity deep venous thrombosis. 2. Possible pulmonary embolism. 3. Asthma. 4. HIV positive. At this point in time, would keep him on albuterol, IV heparin, IV steroids, Singulair, and his retroviral medications. Would add inhaled steroids to his regimen. His prognosis is guarded. He was counseled regarding his condition and this approach. I would like to thank you for allowing me to participate in his care. The patient has several allergies which are documented in the chart and were reviewed by me. NADINE / RADHA: [id number] /
[2019-04-17] MEDS: BUDESONIDE 0.5 MG/2 ML NEBU INHALATION SCH ×2 (08:34→21:28)
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
[2019-04-17] MEDS: CLOPIDOGREL 75 MG TAB PO SCH (10:38)
[2019-04-17] MEDS: ATORVASTATIN 80 MG TAB PO SCH (10:38)
[2019-04-17] MEDS: PANTOPRAZOLE 40 MG TABLET PO SCH (10:39)
[2019-04-17] MEDS: MONTELUKAST 10 MG TAB PO SCH (10:39)
[2019-04-17] MEDS: MULTIVITAMINS, THERA 1 EACH TAB PO SCH (10:39)
[2019-04-17] MEDS: FERROUS SULFATE 325 MG TAB PO SCH (10:39)
[2019-04-17] MEDS: TENOFOVIR PO SCH (10:40)
[2019-04-17] MEDS: EMTRICITABINE PO SCH (10:40)
[2019-04-17] MEDS: EPIZICOM PO SCH (10:40)
[2019-04-17] MEDS: OXcarbazepine 300 MG TAB PO SCH (10:41)
[2019-04-17] MEDS: SYMBYAX PO SCH ×2 (10:42→21:11)
[2019-04-17] MEDS: RITONAVIR 100 MG TAB PO SCH (10:42)
[2019-04-17] MEDS: THEOPHYLLINE 24 HOUR 300 MG CAP.ER.24H PO SCH (10:42)
--- NOTE | 2019-04-17 11:36 | US ---
EXAMINATION TYPE: US venous doppler duplex LE DATE OF EXAM: 04/17/2019 11:17 AM COMPARISON: US bilateral February 17, 2018 CLINICAL HISTORY: subtherapeutic on coumadin, Hx factor V. Bilateral leg cramps SIDE PERFORMED: Bilateral TECHNIQUE: The lower extremity deep venous system is examined utilizing real time linear array sonog pablo with graded compression, doppler sonography and color-flow sonography. VESSELS IMAGED: External Iliac Vein (EIV) Common Femoral Vein Deep Femoral Vein Greater Saphenous Vein * Femoral Vein Popliteal Vein Small Saphenous Vein * Proximal Calf Veins (* superficial vessels) Right Leg: Appears negative for DVT Left Leg: Visualized portions appear negative for DVT, unable to visual mid and distal femoral vein due to large indenting scar along medial thigh Grayscale, color doppler, spectral doppler imaging performed of the deep veins of the bilateral lower extremities. There is normal flow, compressibility, vascular waveforms in the visualized portions. IMPRESSION: Suboptimal evaluation of entire left lower extremity, visualized portions bilaterally sh ow no ultrasound evidence for acute DVT.
[2019-04-17 11:41] VITALS: BMI 29.7
[2019-04-17] MEDS ORDERED: LORazepam 1 MG TAB PO PRN (13:55)
[2019-04-17] MEDS ORDERED: HYDROmorphone 1 MG/ML 1 ML SYRINGE IM PRN (13:58)
[2019-04-17] MEDS: HYDROmorphone 0.5 MG/0.5 ML SYRINGE IVP PRN ×3 (15:00→21:59)
[2019-04-17] MEDS: diphenhydrAMINE 25 MG CAP PO PRN ×2 (17:55→23:03)
[2019-04-17] MEDS ORDERED: WARFARIN 10 MG TAB PO ONE (18:00)
--- NOTE | 2019-04-17 22:07 | PN ---
PROGRESS NOTE DATE OF SERVICE: 04/17/2019 This patient has been hemodynamically stable. He does not complain of chest pain. He is less short of breath. On physical examination, respiratory rate is 18, pulse rate 107, temperature 97.9, blood pressure 125/85, oxygen saturation on room air 97%. HEENT is unremarkable. Chest reveals decreased breath sounds; no clear wheeze. Cardiovascular system reveals an S1, S2. Abdomen is soft. There is no pedal edema. White count is 10.8, hemoglobin of 9.2. IMPRESSION AT THIS TIME: 1. Upper extremity deep venous thrombosis. 2. Possible pulmonary embolus. CT scan of the chest, if it were to be done with contrast, may not add to his overall plan of care. He is reluctant to have it, and we would agree with that at this time. 3. Asthma. 4. HIV positive. Continue IV heparin, steroids, anti-retroviral medications, Singulair. Increase his activity level. His prognosis is fair. MMODL / IJN: [id number] /
[2019-04-17] MEDS ORDERED: OXcarbazepine 300 MG TAB PO ONE (22:17)
--- NOTE | 2019-04-17 22:32 | PN ---
PROGRESS NOTE DATE OF SERVICE: 04/17/2019 This 44-year-old gentleman admitted with shortness of breath and multiple medical issues, apparently had bilateral left upper limb DVT. The patient also had significant left upper limb pain. Patient is evaluated by PT. Patient also had a factor V Leiden deficiency. The patient is being closely monitored. The patient has shortness of breath also. Multiple consult are following the patient closely. A venous Doppler was done and the leg DVT showed normal flow. The patient apparently had indeterminate V/Q scan with this with multiple CT scans previously, so because of that reason we are trying to get a CT angio to rule out the possibility of pulmonary embolism. There is no history of fevers or rigors. PAST MEDICAL HISTORY: Reviewed. REVIEW OF SYSTEMS: CARDIOVASCULAR SYSTEM: No angina. RESPIRATORY: As mentioned earlier. GI: As mentioned earlier. : No dysuria. NERVOUS SYSTEM: No numbness or weakness. CURRENT MEDICATIONS: 1. Ventolin. 2. Lipitor. 3. Pulmicort. 4. Plavix. 5. Benadryl. 6. Iron sulfate. 7. Heparin. 8. Dilaudid. 9. Ativan. 10.Solu-Medrol. 11.Singulair. 12.Multivitamins. 13.Cymbalta. 14.Protonix. 15.Norvir. 16.Heath-24. PHYSICAL EXAM: Patient is alert and oriented x3. Pulse 107, blood pressure 120/82, respiration 18, temperature 97.9, pulse ox 97% on room air. HEENT: Conjunctivae normal. Oral mucosa moist. NECK: No jugular venous distention. No lymph node enlargement. CARDIOVASCULAR: S1, S2. RESPIRATORY: Diminished breath sounds at the bases. A few scattered rhonchi. ABDOMEN: Soft, nontender. LEGS: No edema, no swelling. NERVOUS SYSTEM: No focal deficits. LABS: At this time shows WBC 10.8, hemoglobin 9.2. APTT noted. Influenza negative. ASSESSMENT: 1. Asthma, chronic obstructive pulmonary disease acute exacerbation. 2. Shortness of breath, rule out pulmonary embolism. 3. Bilateral upper limb pains as well as evidence of acute superficial thrombophlebitis of the bilateral basilic veins and also right axillary vein acute deep venous thrombosis and left brachial vein acute deep venous thrombosis. 4. Microcytic anemia. 5. Hypokalemia. 6. Multiple allergies. 7. History of atrial fibrillation, paroxysmal. 8. History of chest pain. 9. History of congestive heart failure. 10.History of deep vein thrombosis. 11.History of chronic liver disease. 12.History of migraine. 13.History of pulmonary embolism. 14.History of seizure disorder. 15.History of sleep apnea. 16.History of Factor 5 Leiden deficiency. 17.History of multiple pulmonary embolism. 18.History of HIV. 19.History hepatitis B. 20.History of pancreatic cancer, apparently status post chemoradiation. 21.History of chronic hypoxic respiratory failure. 22.History of MRSA. 23.History of appendectomy. 24.History of myxoma, removed. 25.History of nicotine dependence. RECOMMENDATIONS AND DISCUSSION: In this 44-year-old gentleman with multiple complex medical issues, we will monitor the patient closely, continue current medical management, continue symptomatic treatments. Otherwise, at this time I recommend continue with IV heparin and I would recommend a CT angio if not possible PE. The V/Q scan otherwise for PE. Otherwise, continue rest of medications. Guarded prognosis. Further recommendations to follow. Will monitor PT, INR closely. MMODL / IJN: [id number] /
[2019-04-18] MEDS: methylPREDNISolone SOD SUCCI 125 MG/2 ML VIAL IV SCH ×3 (00:08→12:37)
[2019-04-18] MEDS: HYDROmorphone 0.5 MG/0.5 ML SYRINGE IVP PRN ×6 (01:50→21:56)
[2019-04-18 02:44] LABS: Anisocytosis Slight; Basophils % (A) 0 %; Eosinophils # (A) 0.1 k/uL (0-0.7); Eosinophils % (A) 1 %; HCT 30.7 % (39.0-53.0); HGB 9.1 gm/dL (13.0-17.5); Hypochromasia Marked; Lymphocytes # (A) 0.3 k/uL (1.0-4.8); Lymphocytes % (A) 3 %; MCH 21.9 pg (25.0-35.0); MCHC 29.8 g/dL (31.0-37.0); MCV 73.6 fL (80.0-100.0); Mean Platelet Volume 7.2; Microcytosis Moderate; Monocytes # (A) 0.2 k/uL (0-1.0); Monocytes % (A) 2 %; Neutrophils # (A) 9.8 k/uL (1.3-7.7); Neutrophils % (A) 94 %; Platelet Count 277 k/uL (150-450); Poikilocytosis Slight; RBC 4.17 m/uL (4.30-5.90); RDW 16.8 % (11.5-15.5); WBC 10.4 k/uL (3.8-10.6)
[2019-04-18 02:55] LABS: INR 1.1 (<1.2); Partial Thromboplastin Time 89.3 sec (22.0-30.0); Prothrombin Time 11.3 sec (9.0-12.0)
[2019-04-18] MEDS: HEPARIN SOD,PORK IN 0.45% NACL 25,000 UNIT in 0.45% NACL 1 250ML.BAG IV SCH (03:22)
[2019-04-18] MEDS: BUDESONIDE 0.5 MG/2 ML NEBU INHALATION SCH ×2 (07:19→18:55)
[2019-04-18] MEDS: ALBUTEROL NEBULIZED 2.5 MG/3 ML INHALATION PRN ×4 (07:19→18:55)
[2019-04-18] MEDS: ATORVASTATIN 80 MG TAB PO SCH (09:57)
[2019-04-18] MEDS: TENOFOVIR PO SCH (09:58)
[2019-04-18] MEDS: EPIZICOM PO SCH (09:58)
[2019-04-18] MEDS: MONTELUKAST 10 MG TAB PO SCH (09:58)
[2019-04-18] MEDS: EMTRICITABINE PO SCH (09:58)
[2019-04-18] MEDS: MULTIVITAMINS, THERA 1 EACH TAB PO SCH (09:58)
[2019-04-18] MEDS: OXcarbazepine 300 MG TAB PO SCH (09:58)
[2019-04-18] MEDS: CLOPIDOGREL 75 MG TAB PO SCH (09:58)
[2019-04-18] MEDS: FERROUS SULFATE 325 MG TAB PO SCH (09:58)
[2019-04-18] MEDS: PANTOPRAZOLE 40 MG TABLET PO SCH (09:59)
[2019-04-18] MEDS: SYMBYAX PO SCH ×2 (09:59→20:40)
[2019-04-18] MEDS: RITONAVIR 100 MG TAB PO SCH (09:59)
[2019-04-18] MEDS: THEOPHYLLINE 24 HOUR 300 MG CAP.ER.24H PO SCH (09:59)
--- NOTE | 2019-04-18 10:33 | ECHOF ---
Referral Reason:LV function MEASUREMENTS -------- HEIGHT: 172.7 cm WEIGHT: 88.5 kg BP: 163/93 IVSd: 0.9 cm (0.6 - 1.1) LVIDd: 3.6 cm (3.9 - 5.3) LVPWd: 1.0 cm (0.6 - 1.1) IVSs: 1.6 cm LVIDs: 2.3 cm LVPWs: 1.9 cm LAESV Index (A-L): 23.80 ml/m Ao Diam: 3.1 cm (2.0 - 3.7) AV Cusp: 1.8 cm (1.5 - 2.6) LA Diam: 4.0 cm (2.7 - 3.8) MV EXCURSION: 16.659 mm (> 18.000) MV EF SLOPE: 79 mm/s (70 - 150) EPSS: 0.4 cm MV E Axel: 0.74 m/s MV DecT: 129 ms MV A Axel: 0.97 m/s MV E/A Ratio: 0.76 RAP: 15.00 mmHg RVSP: 33.58 mmHg FINDINGS -------- Sinus rhythm. This was a technically good study. The left ventricular size is normal. Left ventricular wall thickness is normal. Overall left vent ricular systolic function is normal with, an EF between 55 - 60 %. The diastolic filling pattern is normal for the age of the patient 6.31. The right ventricle is normal in size. The left atrial size is normal. The right atrial size is normal. The aortic valve is trileaflet and appears structurally normal. The mitral valve is normal. There is trace mitral regurgitation. The tricuspid valve appears structurally normal. Mild tricuspid regurgitation present. Right vent ricular systolic pressure is normal at < 35 mmHg. There is no pulmonic regurgitation present. The aortic root size is normal. The inferior vena cava is mildly dilated. There is no pericardial effusion. CONCLUSIONS -------- 1. Sinus rhythm. 2. This was a technically good study. 3. The left ventricular size is normal. 4. Left ventricular wall thickness is normal. 5. Overall left ventricular systolic function is normal with, an EF between 55 - 60 %. 6. The diastolic filling pattern is normal for the age of the patient 6.31 7. The right ventricle is normal in size. 8. The left atrial size is normal. 9. The right atrial size is normal. 10. The aortic valve is trileaflet and appears structurally normal. 11. The mitral valve is normal. 12. There is trace mitral regurgitation. 13. The tricuspid valve appears structurally normal. 14. Mild tricuspid regurgitation present. 15. Right ventricular systolic pressure is normal at < 35 mmHg. 16. There is no pulmonic regurgitation present. 17. The aortic root size is normal. 18. The inferior vena cava is mildly dilated. 19. There is no pericardial effusion. [employer] SET UP MECHANIC: Preethi Harrell RDCS
[2019-04-18 12:17] LABS: African American GFR (CKD) >90 (>60 ml/min/1.73 sqM); Anion Gap 16 mmol/L; Blood Urea Nitrogen 27 mg/dL (9-20); Calcium 9.3 mg/dL (8.4-10.2); Carbon Dioxide 15 mmol/L (22-30); Chloride 101 mmol/L (98-107); Non-African American GFR(CKD) >90 (>60 ml/min/1.73 sqM); Potassium 4.6 mmol/L (3.5-5.1); Sodium 132 mmol/L (137-145)
[2019-04-18 12:31] LABS: Glucose 667 mg/dL (74-99)
[2019-04-18] MEDS ORDERED: BENZOCAINE/MENTHOL LOZENG 1 EACH LOZENGE MUCOUS MEM PRN (14:30)
[2019-04-18 16:53] LABS: Glucose,Whole Blood 560 mg/dL (75-99)
[2019-04-18] MEDS ORDERED: INSULIN ASPART (NovoLOG) 100 UNIT/ML VIAL SQ ONE (17:06)
--- NOTE | 2019-04-18 17:29 | PN ---
PROGRESS NOTE DATE OF SERVICE: 04/18/2019 This patient has been hemodynamically stable. He does not have chest pain. He has walked in the hallway. On physical examination, his blood pressure is 167/84, respiratory rate of 18, pulse rate of 108, temperature 97.8. Oxygen saturation on room air is 98%. HEENT is unremarkable. Chest reveals prolonged exhalation. No wheeze. Cardiovascular system reveals an S1, S2. Abdomen is soft. There is no edema. IMPRESSION AT THIS TIME: 1. Pulmonary embolus is likely. 2. Upper extremity deep venous thrombosis. 3. Uncontrolled diabetes mellitus, in part due to steroids. 4. Asthma with exacerbation. 5. HIV disease. At this point in time, would discontinue his steroids, increase his activity level. Continue anticoagulation per Hematology. Depending on how he does, we shall make further changes to his care. NADINE / RADHA: [id number] /
[2019-04-18] MEDS ORDERED: INSULIN ASPART (NovoLOG) 100 UNIT/ML VIAL SQ SCH (17:30)
[2019-04-18] MEDS ORDERED: WARFARIN 10 MG TAB PO ONE (18:00)
[2019-04-18] MEDS ORDERED: WARFARIN 7.5 MG TAB PO ONE (18:00)
[2019-04-18 18:19] LABS: Glucose,Whole Blood 568 mg/dL (75-99)
[2019-04-18] MEDS ORDERED: INSULIN REGULAR BOLUS (FROM DRIP BAG) IV ONE (18:38)
--- NOTE | 2019-04-18 18:59 | PN ---
PROGRESS NOTE DATE OF SERVICE: 04/18/2019 This 44-year-old gentleman admitted with multiple complaints, including bilateral upper leg DVT, also was suspected to have pulmonary embolism; however, the CT angio could not be done and Dr. Heide Wu recommended continued treatment without further evaluation. The patient is being closely monitored at this time. The patient was complaining of severe pain also, on pain medications. Please refer to staff notes for further information. Patient is being closely monitored. Past medical history reviewed. REVIEW OF SYSTEMS: CARDIOVASCULAR SYSTEM: No angina, palpitations. RESPIRATORY SYSTEM: As mentioned earlier. GI: As mentioned earlier. MUSCULOSKELETAL: As mentioned earlier. CURRENT MEDICATIONS: Ventolin, Lipitor, Cepacol, Pulmicort, Plavix, iron sulfate, heparin, NovoLog, Ativan, multivitamins, Norvir p.o., Coumadin. PHYSICAL EXAMINATION: Patient is alert and oriented x3. The pulse is 91, blood pressure 161/84, respiration 18, temperature 97.8, pulse ox 98% on room air. HEENT: Conjunctivae normal. NECK: No jugular venous distention. CARDIOVASCULAR SYSTEM: S1, S2 muffled. RESPIRATORY SYSTEM: Breath sounds diminished at the bases. A few scattered rhonchi. ABDOMEN: Soft, non-tender. No mass palpable. LEGS: No edema. No swelling. NERVOUS SYSTEM: Higher functions as mentioned earlier. Moves all 4 limbs. No focal motor or sensory deficit. LYMPHATICS: No lymph node palpable in neck, axillae or groin. SKIN: No ulcer, rash, bleeding. JOINTS: No active deforming arthropathy. LABS: WBC 10.4, hemoglobin 9.1. Sodium 132, potassium 4.6. Glucose 667 and then subsequently 568. ASSESSMENT: 1. Asthma, chronic obstructive pulmonary disease, acute exacerbation. 2. Shortness of breath; rule out pulmonary embolism. 3. Bilateral upper limb pains as well as evidence of superficial thrombophlebitis of the bilateral basilic veins as well as right axillary vein acute deep venous thrombosis with left brachial acute deep venous thrombosis. 4. Microcytic anemia. 5. Hypokalemia. 6. Diabetes mellitus, type 2, uncontrolled. 7. Multiple allergies. 8. History of atrial fibrillation, paroxysmal. 9. History of chest pain. 10.History of congestive heart failure. 11.History of deep vein thrombosis. 12.History of chronic liver disease. 13.History of migraine. 14.History of pulmonary embolism. 15.Seizure disorder. 16.History of sleep apnea. 17.Factor V Leiden deficiency. 18.History of multiple pulmonary emboli. 19.History of HIV. 20.History of hepatitis B. 21.History of pancreatic cancer, apparently post chemoradiation. 22.History of chronic hypoxic respiratory failure. 23.History of methicillin-resistant Staphylococcus aeruginosa. 24.History of appendectomy. 25.History of myxoma, removed. 26.History of nicotine dependence. RECOMMENDATIONS AND DISCUSSION: I recommend to continue current medications, continue with the monitoring, symptomatic treatment. Continue with IV heparin. Monitor blood sugars closely. If the blood sugars are elevated, I recommend serum ketones and recommend insulin drip. Will check hemoglobin A1c also. Guarded prognosis because of multiple complex medical issues. Further recommendations to follow. MMODL / IJN: [id number] /
[2019-04-18 20:42] LABS: Glucose,Whole Blood 489 mg/dL (75-99)
[2019-04-18 21:18] LABS: Glucose,Whole Blood 504 mg/dL (75-99)
[2019-04-18] MEDS: INSULIN REGULAR 100 UNIT in SODIUM CHLORIDE 0.9% 100 ML IV SCH (21:59)
[2019-04-18 22:53] LABS: Glucose,Whole Blood 461 mg/dL (75-99)
[2019-04-19 00:39] LABS: Glucose,Whole Blood 464 mg/dL (75-99)
[2019-04-19 00:41] LABS: Hemoglobin A1C 9.1 % (4.0-6.0)
[2019-04-19] MEDS: HYDROmorphone 0.5 MG/0.5 ML SYRINGE IVP PRN ×3 (02:38→11:07)
[2019-04-19 03:30] LABS: Glucose,Whole Blood 471 mg/dL (75-99)
[2019-04-19 04:02] LABS: Glucose,Whole Blood 342 mg/dL (75-99)
[2019-04-19] MEDS: INSULIN REGULAR 100 UNIT in SODIUM CHLORIDE 0.9% 100 ML IV SCH (04:52)
[2019-04-19 05:01] LABS: Glucose,Whole Blood 170 mg/dL (75-99)
[2019-04-19 06:44] LABS: Glucose,Whole Blood 116 mg/dL (75-99)
[2019-04-19] MEDS: ALBUTEROL NEBULIZED 2.5 MG/3 ML INHALATION PRN ×2 (07:26→11:25)
[2019-04-19] MEDS: BUDESONIDE 0.5 MG/2 ML NEBU INHALATION SCH (07:26)
[2019-04-19] MEDS: PANTOPRAZOLE 40 MG TABLET PO SCH (07:32)
[2019-04-19] MEDS: CLOPIDOGREL 75 MG TAB PO SCH (07:32)
[2019-04-19] MEDS: ATORVASTATIN 80 MG TAB PO SCH (07:32)
[2019-04-19] MEDS: MULTIVITAMINS, THERA 1 EACH TAB PO SCH (07:32)
[2019-04-19] MEDS: MONTELUKAST 10 MG TAB PO SCH (07:32)
[2019-04-19] MEDS: THEOPHYLLINE 24 HOUR 300 MG CAP.ER.24H PO SCH (07:33)
[2019-04-19] MEDS: RITONAVIR 100 MG TAB PO SCH (07:33)
[2019-04-19] MEDS: OXcarbazepine 300 MG TAB PO SCH (07:34)
[2019-04-19] MEDS: FERROUS SULFATE 325 MG TAB PO SCH (07:35)
[2019-04-19] MEDS: diphenhydrAMINE 25 MG CAP PO PRN (07:38)
[2019-04-19] MEDS: HEPARIN SOD,PORK IN 0.45% NACL 25,000 UNIT in 0.45% NACL 1 250ML.BAG IV SCH (07:38)
[2019-04-19] MEDS: INSULIN ASPART (NovoLOG) 100 UNIT/ML VIAL SQ SCH ×2 (07:39→12:39)
[2019-04-19 07:47] VITALS: BP 122/83; RESP 16; TEMP 98
[2019-04-19 07:52] LABS: Glucose,Whole Blood 120 mg/dL (75-99)
[2019-04-19] MEDS: EMTRICITABINE PO SCH (08:27)
[2019-04-19] MEDS: TENOFOVIR PO SCH (08:27)
[2019-04-19] MEDS: SYMBYAX PO SCH (08:28)
[2019-04-19] MEDS: EPIZICOM PO SCH (08:28)
[2019-04-19 10:28] LABS: INR 1.6 (<1.2); Partial Thromboplastin Time 25.8 sec (22.0-30.0); Prothrombin Time 15.9 sec (9.0-12.0)
[2019-04-19] MEDS ORDERED: HEPARIN SODIUM,PORCINE 5,000 UNIT/ML 1 ML VIAL IV STA (11:33)
[2019-04-19 11:38] VITALS: PULSE 76
[2019-04-19] MEDS ORDERED: INSULIN ASPART (NovoLOG) 100 UNIT/ML VIAL SQ SCH (12:30)
[2019-04-19] MEDS ORDERED: WARFARIN 7.5 MG TAB PO ONE (18:00)
--- NOTE | 2019-04-19 20:19 | PN ---
PROGRESS NOTE DATE OF SERVICE: 04/19/2019 This 44-year-old gentleman who was admitted with multiple medical problems including history of asthma, shortness of breath also had pulmonary embolism. The patient on IV heparin and the patient is also on Coumadin also INR is improved to 1.6 today. The patient had multiple other issues including acute on chronic pain syndrome and as well as diabetes mellitus also. The patient is off insulin drip. The patient is refusing the Accu-Cheks at this time. A 2D echo with Doppler was done which was read by Cardiology and showed ejection fraction about 50-60 percent and otherwise normal findings. PAST MEDICAL HISTORY: Reviewed. REVIEW OF SYSTEMS: CARDIOVASCULAR SYSTEM: No angina or palpitations. RESPIRATIONS: As mentioned earlier. GASTROINTESTINAL: As mentioned earlier. Nervous system: As mentioned earlier. Musculoskeletal: As mentioned earlier. CURRENT MEDICATIONS: Reviewed and include: 1. Ventolin p.r.n. 2. Lipitor 40 mg. 3. Cepacol. Pulmicort. 4. Plavix. 5. Benadryl. 6. Iron sulfate. 7. Heparin IV. 8. Dilaudid. 9. NovoLog. 10.Ativan. 11.P.r.n. medications. 12.Medication noted. PHYSICAL EXAM: Patient is alert, oriented x3. Pulse 79. Blood pressure 124/80, respirations 16, temperature 98 degrees, pulse ox 92 percent on room air. HEENT: Conjunctivae normal. NECK: No JVD. CARDIOVASCULAR: S1, S2 muffled. RESPIRATIONS: Breath sounds diminished in the bases. A few scattered rhonchi and crackles. ABDOMEN: Soft, nontender. No mass palpable. LEGS: No edema. No swelling. Nervous System: No focal deficits. LABS: INR 1.7. Otherwise Accu-Cheks are noted. ASSESSMENT: 1. Asthma, chronic obstructive pulmonary disease acute exacerbation. 2. Shortness of breath, possible pulmonary embolism. 3. Bilateral upper limb pains as well as evidence of superficial thrombophlebitis of the bilateral and as well as the right axillary vein, acute deep vein thrombosis with left brachial DVT. 4. Microcytic anemia. 5. Hypokalemia. 6. Diabetes type 2 uncontrolled. 7. Multiple allergies. 8. History of atrial fibrillation, paroxysmal. 9. History of chest pain. 10.History of congestive heart failure. 11.History of deep vein thrombosis. 12.History of chronic liver disease. 13.History of migraine. 14.History of pulmonary embolism. 15.History of seizure disorder. 16.History of sleep apnea. 17.History of Factor V Leiden deficiency. 18.History of multiple pulmonary emboli. 19.History of HIV. 21.History of pancreatic cancer, apparently post chemo radiation. 22.History of chronic hypoxic respiratory failure. 23.History of MRSA. 24.History of appendectomy. 25.History of myxoma removed. 26.History of nicotine dependence. RECOMMENDATIONS AND DISCUSSION: Recommend to continue current medications, monitoring, management and symptomatic treatment. Otherwise, at this time, I recommend to continue with IV heparin and monitor PT, INR closely and continue with Accu-Cheks a.c. and q.h.s. Closely follow with multiple consultants and Coumadin 7.5 mg today. Prognosis guarded because of multiple complex medical issues. Further recommendations to follow. MMMAYL / IJN: [id number] / MTDD
--- NOTE | 2019-04-20 09:36 | DS ---
DISCHARGE SUMMARY DATE OF SERVICE: 04/19/2019 FINAL DIAGNOSES: 1. Asthma, chronic obstructive pulmonary disease exacerbation. 2. Shortness of breath, possible acute pulmonary embolism. 3. Bilateral upper limb pain as well as evidence of superficial thrombophlebitis of the bilateral basilic veins as well as right axillary vein with acute DVT of the left brachial acute deep venous thrombosis. 4. Microcytic anemia. 5. Hypokalemia. 6. Diabetes type 2, uncontrolled. 7. Multiple allergies. 8. History of atrial fibrillation, paroxysmal. 9. History of chest pain. 10.History of congestive heart failure. 11.History of deep vein thrombosis. 12.History of chronic liver disease. 13.History of migraine. 14.History of pulmonary embolism. 15.History of seizure disorder. 16.History of sleep apnea. 17.History of factor V Leiden deficiency. 18.History of multiple pulmonary emboli. 19.History HIV. 20.History of hepatitis B. 21.History of pancreatic cancer, apparently for chemoradiation, currently post chemo radiation. 22.Chronic hypoxic respiratory failure. 23.History of MRSA. 24.History of myxoma, removed. 25.History of nicotine dependence. DISCHARGE DISPOSITION: The patient LEFT THE HOSPITAL AGAINST MEDICAL ADVICE. HISTORY OF PRESENT ILLNESS: This is a 44-year-old gentleman with the past medical history of multiple medical problems was admitted with features of shortness of breath. The patient was thought to have acute pulmonary embolism. The CT chest was not done because of various reasons. Please refer to the progress notes and staff notes for further details. Otherwise, the patient was treated symptomatically. Patient was seen. The patient had some PVCs, but however the patient is not willing to stay and the patient LEFT THE HOSPITAL AGAINST MEDICAL ADVICE. As mentioned earlier, the overall prognosis is extremely guarded. Discussed this with the patient on multiple occasions. Please refer to staff notes and consultation for further details. MMODL / IJN: [id number] /
== END 2019-04-19 13:33 | disposition left against medical advice (07) ==
LOC: EC 17:16 → 3SCARD 20:15 → INTOOBSV 20:15 → 6NMEDSUR 04-17 18:58 → UNDODISIN 04-19 13:33
PROVIDERS: ADMIT Hospitalist; ATTEND Hospitalist
DX: J44.1 Chronic obstructive pulmonary disease with (acute) exacerbation (principal); I82.622 Acute embolism and thrombosis of deep veins of left upper extremity; J96.11 Chronic respiratory failure with hypoxia; I82.A11 Acute embolism and thrombosis of right axillary vein; I80.8 Phlebitis and thrombophlebitis of other sites; J45.901 Unspecified asthma with (acute) exacerbation; D50.9 Iron deficiency anemia, unspecified; E87.6 Hypokalemia; I48.0 Paroxysmal atrial fibrillation; D68.51 Activated protein C resistance; E11.65 Type 2 diabetes mellitus with hyperglycemia; T38.0X5A Adverse effect of glucocorticoids and synthetic analogues, initial encounter; Z21 Asymptomatic human immunodeficiency virus [HIV] infection status; I25.10 Atherosclerotic heart disease of native coronary artery without angina pectoris; I50.9 Heart failure, unspecified; G47.33 Obstructive sleep apnea (adult) (pediatric); Z99.89 Dependence on other enabling machines and devices; G43.909 Migraine, unspecified, not intractable, without status migrainosus; M79.5 Residual foreign body in soft tissue; G40.909 Epilepsy, unspecified, not intractable, without status epilepticus; R26.2 Difficulty in walking, not elsewhere classified; B19.10 Unspecified viral hepatitis B without hepatic coma; G89.4 Chronic pain syndrome; I49.3 Ventricular premature depolarization; F41.9 Anxiety disorder, unspecified; F31.9 Bipolar disorder, unspecified; Z53.29 Procedure and treatment not carried out because of patient's decision for other reasons; Z79.01 Long term (current) use of anticoagulants; Z79.51 Long term (current) use of inhaled steroids; Z79.899 Other long term (current) drug therapy; Z79.82 Long term (current) use of aspirin; Z79.02 Long term (current) use of antithrombotics/antiplatelets; Z92.21 Personal history of antineoplastic chemotherapy; Z92.3 Personal history of irradiation; Z88.6 Allergy status to analgesic agent; Z91.041 Radiographic dye allergy status; Z88.5 Allergy status to narcotic agent; Z88.2 Allergy status to sulfonamides; Z88.8 Allergy status to other drugs, medicaments and biological substances; Z91.048 Other nonmedicinal substance allergy status; Z91.018 Allergy to other foods; I25.2 Old myocardial infarction; Z86.14 Personal history of Methicillin resistant Staphylococcus aureus infection; Z87.891 Personal history of nicotine dependence; Z91.81 History of falling; Z99.81 Dependence on supplemental oxygen; Z87.19 Personal history of other diseases of the digestive system; Z86.711 Personal history of pulmonary embolism; Z85.07 Personal history of malignant neoplasm of pancreas; Z90.49 Acquired absence of other specified parts of digestive tract; Z86.718 Personal history of other venous thrombosis and embolism; Z87.39 Personal history of other diseases of the musculoskeletal system and connective tissue; Z62.810 Personal history of physical and sexual abuse in childhood; Z87.892 Personal history of anaphylaxis; Z82.49 Family history of ischemic heart disease and other diseases of the circulatory system; Z80.1 Family history of malignant neoplasm of trachea, bronchus and lung; Z83.2 Family history of diseases of the blood and blood-forming organs and certain disorders involving the immune mechanism
CPT/HCPCS: 96376 ×5; 96365 ×2; 96366 ×5; 96375 ×2; 99291; 36415; 94640 ×10; 94760 ×2; 93005; 93306; 83880; 80053; 80048; 82009; 83605; 83735; 84484; 85025 ×4; 85610 ×5; 85730 ×5; 87040; 87502; 83036; 71045; 93970 ×2; G0378 ×6; J2270 ×4; J1200; J1644 ×8; J2930 ×4; J1170 ×4

== ENCOUNTER 2020-02-06 13:17 | Inpatient (IN) | payer OTHER ==
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
--- NOTE | 2020-02-06 15:26 | XR ---
[place] spine HISTORY: Trauma and pain Frontal and lateral views of the thoracic spine on 3 images There is a slight spinal curvature. Thoracic vertebral bodies show preserved height and bone minerali zation. Disc spaces are maintained. Sclerotic density at the costovertebral angle on the right at T12 may be due to some arthropathy change but is indeterminate. Inferior vena cava filter is noted incid entally on the lateral view. IMPRESSION: No acute fracture or subluxation of the thoracic spine. Density as described above at the costovertebral angle at T12. Mild spinal curvature. Inferior vena cava filter is partially visualize d.
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
[2020-02-06 15:53] LABS: Basophils # (A) 0.1 k/uL (0-0.2); Basophils % (A) 0 %; Eosinophils # (A) 0.1 k/uL (0-0.7); Eosinophils % (A) 1 %; HGB 13.3 gm/dL (13.0-17.5); Lymphocytes % (A) 8 %; MCHC 34.2 g/dL (31.0-37.0); Mean Platelet Volume 7.7; Monocytes # (A) 0.7 k/uL (0-1.0); Monocytes % (A) 5 %; Neutrophils # (A) 11.1 k/uL (1.3-7.7); Neutrophils % (A) 84 %; Platelet Count 427 k/uL (150-450); Poikilocytosis Slight; RBC 4.93 m/uL (4.30-5.90); RDW 15.3 % (11.5-15.5); WBC 13.2 k/uL (3.8-10.6)
[2020-02-06 16:01] LABS: ALT 54 U/L (4-49); AST 37 U/L (17-59); African American GFR (CKD) >90 (>60 ml/min/1.73 sqM); Albumin 3.4 g/dL (3.5-5.0); Alkaline Phosphatase 123 U/L (38-126); Anion Gap 9 mmol/L; Blood Urea Nitrogen 12 mg/dL (9-20); Calcium 8.9 mg/dL (8.4-10.2); Carbon Dioxide 24 mmol/L (22-30); Chloride 95 mmol/L (98-107); Glucose 410 mg/dL (74-99); Non-African American GFR(CKD) >90 (>60 ml/min/1.73 sqM); Potassium 5.1 mmol/L (3.5-5.1); Sodium 128 mmol/L (137-145); Total Bilirubin 0.8 mg/dL (0.2-1.3); Total Protein 6.5 g/dL (6.3-8.2)
[2020-02-06] MEDS ORDERED: SODIUM CHLORIDE 0.9% 1,000 ML IV STA (16:28)
[2020-02-06 16:29] LABS: INR 1.2 (<1.2); Prothrombin Time 11.7 sec (9.0-12.0)
[2020-02-06 16:33] LABS: Partial Thromboplastin Time 19.5 sec (22.0-30.0)
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
[2020-02-06] MEDS ORDERED: NALOXONE 0.4 MG/ML 1 ML VIAL IV PRN (18:14)
[2020-02-06] MEDS ORDERED: INSULIN ASPART (NovoLOG) 100 UNIT/ML VIAL SQ SCH (21:00)
[2020-02-06 22:12] LABS: Glucose,Whole Blood 552 mg/dL (75-99)
[2020-02-06 22:12] LABS: Glucose,Whole Blood 556 mg/dL (75-99)
[2020-02-06] MEDS: SODIUM CHLORIDE 0.9% 1,000 ML IV SCH (22:17)
[2020-02-06] MEDS ORDERED: INSULIN ASPART (NovoLOG) 100 UNIT/ML VIAL SQ ONE (22:25)
[2020-02-06 23:11] LABS: Glucose,Whole Blood 493 mg/dL (75-99)
[2020-02-06] MEDS ORDERED: VANCOMYCIN IV PER PHARMACY 1 EACH MISC MISCELLANE PRN (23:22)
[2020-02-06] MEDS ORDERED: INSULIN REGULAR BOLUS (FROM DRIP BAG) IV ONE (23:31)
[2020-02-06] MEDS ORDERED: INSULIN REGULAR 100 UNIT in SODIUM CHLORIDE 0.9% 100 ML IV SCH (23:45)
[2020-02-07] MEDS: VANCOMYCIN 1,500 MG in SODIUM CHLORIDE 0.9% 250 ML IVPB SCH ×3 (00:12→15:36)
[2020-02-07] MEDS: PIPERACILLIN-TAZOBACTAM 3.375 GM in SODIUM CHLORIDE 0.9% 100 ML IVPB SCH ×2 (00:13→06:39)
[2020-02-07] MEDS: SODIUM CHLORIDE 0.9% 1,000 ML IV SCH ×4 (00:20→14:33)
[2020-02-07 00:46] LABS: Glucose,Whole Blood 396 mg/dL (75-99)
[2020-02-07 01:18] LABS: Glucose,Whole Blood 281 mg/dL (75-99)
[2020-02-07 01:53] LABS: Glucose,Whole Blood 102 mg/dL (75-99)
[2020-02-07 03:00] LABS: Glucose,Whole Blood 204 mg/dL (75-99)
[2020-02-07 05:40] LABS: Glucose,Whole Blood 125 mg/dL (75-99)
[2020-02-07 06:50] LABS: Glucose,Whole Blood 166 mg/dL (75-99)
[2020-02-07 08:08] LABS: Basophils # (A) 0.1 k/uL (0-0.2); Basophils % (A) 0 %; Eosinophils # (A) 0.1 k/uL (0-0.7); Eosinophils % (A) 1 %; HCT 31.9 % (39.0-53.0); HGB 10.9 gm/dL (13.0-17.5); Lymphocytes # (A) 0.7 k/uL (1.0-4.8); Lymphocytes % (A) 7 %; MCHC 34.1 g/dL (31.0-37.0); MCV 79.2 fL (80.0-100.0); Mean Platelet Volume 6.9; Monocytes # (A) 0.6 k/uL (0-1.0); Monocytes % (A) 5 %; Neutrophils # (A) 9.3 k/uL (1.3-7.7); Neutrophils % (A) 85 %; Platelet Count 351 k/uL (150-450); Poikilocytosis Slight; RBC 4.03 m/uL (4.30-5.90); RDW 15.4 % (11.5-15.5); WBC 10.9 k/uL (3.8-10.6)
[2020-02-07 08:28] VITALS: RESP 16
[2020-02-07 08:48] LABS: Glucose,Whole Blood 338 mg/dL (75-99)
[2020-02-07 10:58] LABS: Appearance,Urine Clear (Clear); Bilirubin,Urine Negative (Negative); Blood,Urine Negative (Negative); Color,Urine Light Yellow; Glucose,Urine (UA) Negative (Negative); Ketones,Urine Negative (Negative); Leukocyte Esterase,Urine Negative (Negative); Nitrite,Urine Negative (Negative); PH, Urine 5.5 (5.0-8.0); Protein,Urine Negative (Negative); Specific Gravity,Urine 1.013 (1.001-1.035); Urobilinogen,Urine <2.0 mg/dL (<2.0)
[2020-02-07 11:08] LABS: Amphetamine Screen,Urine Not Detected (NotDetected); Barbiturate Screen,Urine Not Detected (NotDetected); Benzodiazepines Screen,Urine Not Detected (NotDetected); Cocaine Screen,Urine Not Detected (NotDetected); Methadone Screen, Urine Not Detected (NotDetected); Opiate Screen,Urine Not Detected (NotDetected); Oxycodone Screen, Urine Not Detected (NotDetected); Phencyclidine Screen,Urine Not Detected (NotDetected); Tricyclic Antidepressant,Urine Not Detected (NotDetected); Urn Cannabinoid Scrn Not Detected (NotDetected)
[2020-02-07 11:16] LABS: Glucose,Whole Blood 149 mg/dL (75-99)
[2020-02-07] MEDS ORDERED: ALBUTEROL NEBULIZED 2.5 MG/3 ML INHALATION PRN (11:40)
[2020-02-07] MEDS ORDERED: THEOPHYLLINE 24 HOUR 300 MG CAP.ER.24H PO SCH (11:45)
[2020-02-07] MEDS ORDERED: CLOPIDOGREL 75 MG TAB PO SCH (11:45)
[2020-02-07] MEDS ORDERED: LAMIVUDINE PO SCH (11:45)
[2020-02-07] MEDS ORDERED: ABACAVIR SULFATE PO SCH (11:45)
[2020-02-07] MEDS ORDERED: ASPIRIN 81 MG PO SCH (11:45)
[2020-02-07] MEDS ORDERED: ACETAMINOPHEN TAB 325 MG TAB PO PRN (11:48)
[2020-02-07 11:59] LABS: African American GFR (CKD) >90 (>60 ml/min/1.73 sqM); Anion Gap 6 mmol/L; Blood Urea Nitrogen 11 mg/dL (9-20); Calcium 7.9 mg/dL (8.4-10.2); Carbon Dioxide 24 mmol/L (22-30); Chloride 99 mmol/L (98-107); Glucose 199 mg/dL (74-99); Non-African American GFR(CKD) >90 (>60 ml/min/1.73 sqM); Sodium 129 mmol/L (137-145)
[2020-02-07 12:08] LABS: Glucose,Whole Blood 208 mg/dL (75-99)
[2020-02-07] MEDS ORDERED: HYDROcodone/APAP 5-325MG 1 EACH TAB PO STA (12:53)
[2020-02-07] MEDS ORDERED: INSULIN DETEMIR (LEVEMIR) 100 UNIT/ML SYR SQ STA (13:45)
[2020-02-07 13:50] LABS: Glucose,Whole Blood 211 mg/dL (75-99)
[2020-02-07 15:19] LABS: Glucose,Whole Blood 474 mg/dL (75-99)
[2020-02-07 15:20] VITALS: BP 117/69; PULSE 91; TEMP 98
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
[2020-02-07] MEDS ORDERED: INSULIN ASPART (NovoLOG) 100 UNIT/ML VIAL SQ ONE (15:52)
[2020-02-07] MEDS ORDERED: chlorproMAZINE 25 MG TAB PO SCH (16:00)
[2020-02-07 16:35] LABS: Hemoglobin A1C 11.5 % (4.0-6.0)
[2020-02-07] MEDS ORDERED: INSULIN ASPART (NovoLOG) 100 UNIT/ML VIAL SQ SCH ×2 (17:30)
[2020-02-07] MEDS ORDERED: WARFARIN 5 MG TAB PO ONE (18:00)
[2020-02-07] MEDS ORDERED: SYMBICORT 80-4.5 MCG INHALER INHALATION SCH (20:00)
[2020-02-07] MEDS ORDERED: ATORVASTATIN 20 MG TAB PO SCH (21:00)
[2020-02-07] MEDS ORDERED: busPIRone HCl 10 MG TAB PO SCH (21:00)
[2020-02-07] MEDS ORDERED: QUEtiapine 50 MG TAB PO SCH (21:00)
[2020-02-07] MEDS ORDERED: FAMOTIDINE 20 MG TAB PO SCH (21:00)
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
[2020-02-08] MEDS ORDERED: MONTELUKAST 10 MG TAB PO SCH (09:00)
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
== END 2020-02-07 16:30 | disposition left against medical advice (07) | DRG 65 ==
LOC: EC 13:17 → SUPCPDRO 13:17 → 1SOBS 17:50 → OBSVTOIN 02-07 11:49
PROVIDERS: ADMIT Hospitalist; ATTEND Hospitalist
DX: I63.9 Cerebral infarction, unspecified (principal); I48.20 Chronic atrial fibrillation, unspecified; I69.354 Hemiplegia and hemiparesis following cerebral infarction affecting left non-dominant side; E87.1 Hypo-osmolality and hyponatremia; D68.51 Activated protein C resistance; B19.10 Unspecified viral hepatitis B without hepatic coma; D68.59 Other primary thrombophilia; G47.33 Obstructive sleep apnea (adult) (pediatric); J44.9 Chronic obstructive pulmonary disease, unspecified; Z62.810 Personal history of physical and sexual abuse in childhood; I50.9 Heart failure, unspecified; F31.9 Bipolar disorder, unspecified; Z21 Asymptomatic human immunodeficiency virus [HIV] infection status; F41.9 Anxiety disorder, unspecified; E11.65 Type 2 diabetes mellitus with hyperglycemia; G40.909 Epilepsy, unspecified, not intractable, without status epilepticus; M12.9 Arthropathy, unspecified; M40.202 Unspecified kyphosis, cervical region; Z79.899 Other long term (current) drug therapy; Z80.1 Family history of malignant neoplasm of trachea, bronchus and lung; Z99.81 Dependence on supplemental oxygen; Z95.828 Presence of other vascular implants and grafts; I25.2 Old myocardial infarction; Z92.3 Personal history of irradiation; Z92.21 Personal history of antineoplastic chemotherapy; Z91.14 Patient's other noncompliance with medication regimen; Z87.891 Personal history of nicotine dependence; Z86.718 Personal history of other venous thrombosis and embolism; Z86.711 Personal history of pulmonary embolism; Z85.07 Personal history of malignant neoplasm of pancreas; Z82.49 Family history of ischemic heart disease and other diseases of the circulatory system; Z79.82 Long term (current) use of aspirin; Z79.02 Long term (current) use of antithrombotics/antiplatelets; Z90.89 Acquired absence of other organs; Z98.890 Other specified postprocedural states; Z86.14 Personal history of Methicillin resistant Staphylococcus aureus infection; Z79.01 Long term (current) use of anticoagulants; Z91.041 Radiographic dye allergy status; Z88.5 Allergy status to narcotic agent; Z88.2 Allergy status to sulfonamides; Z88.8 Allergy status to other drugs, medicaments and biological substances; Z91.09 Other allergy status, other than to drugs and biological substances
CPT/HCPCS: 36415; 70450; 71045; 72072; 72125; 80048; 80053; 80306; 81003; 83036; 85025; 85610; 85730; 87040; 96360; 96361; 99285